=== PATIENT | male | born 1950 | race Caucasian/White ===

== ENCOUNTER 2021-04-15 15:38 | Inpatient (IN) | payer MEDICARE ==
[2021-04-15] MEDS ORDERED: Sodium Chloride 0.9% 10 ML Syringe FLUSH PRN ×2 (16:14→19:10)
--- NOTE | 2021-04-15 16:26 | EDM.PDOC ---
ED HPI GENERAL MEDICAL PROBLEM - General Chief Complaint: Fever Stated Complaint: CHILLS, HOT TO TOUCH, NOT EATING, NOT DRINKING Time Seen by Provider: 04/15/21 16:16 Source of Information: Reports: Patient, Family ( at bedside and supportive) History Limitations: Reports: No Limitations ( good historian. feeling too ill to be verbal (offer) complaints ) - History of Present Illness INITIAL COMMENTS - FREE TEXT/NARRATIVE: Stone is a 70 year old male whom presents to ER with family, for evaluation of generalized weakness, right knee pain and fever. Stone reported fever started on Friday but did not tell family until today. [place] and he had a full day yesterday but after fishing in the evening he had chills, significant worsening of right knee pain (h/o surgery with known repeat repair pending), headache and general malaise last night. Stone normal doctors with [facility] and takes Tylenol or Tramadol for pain, last dose Tylenol 1,000mg 8-9am today with no Tramadol. Stone had no appetite last night or today. Stone had generalized weakness and severe right knee pain this am that he was unable to get down the flight of stairs from the bedroom. Stone has significant medical history of right knee pain pending surgery but delayed due to PE and right groin clot current t reatment with Xarelto, repeat scans noting improvement of PE and groin clot. Stone was todl he a kidney stones, unsure location but reported intermittent severe right groin pain x 2 over the last few weeks. Stone answers questions but not interested in conversation of giving details, is very helpful. Stone notes voice is hoarse, headache slight left sided neck pain, severe right knee pain and intermittent groin pain. Sepsis orders placed, called pharmacy for antibiotic sepsis protocol. Rocephin 2Gm IV ordered once blood and urine obtained with consideration of LP within 2 hrs of initialing IV antibiotics. Ct Head ordered due to headache, neck pain on blood thinner and possible LP needed. Previous abdominal surgeries: Appendix and hernia repair Right Knee Pain Score (Numeric/FACES): 7 - Related Data Allergies Allergy/AdvReac Type Severity Reaction Status Date / Time No Known Allergies Allergy Verified 04/15/21 15:44 Home Meds: Home Meds Omeprazole 20 mg PO DAILY 04/15/21 [History] Propranolol HCl 20 mg PO BID PRN 04/15/21 [History] traMADol [Ultram] 50 mg PO BID PRN 04/15/21 [History] Social & Family History - Tobacco Use Tobacco Use Status *Q: Never Tobacco User - Caffeine Use Caffeine Use: Reports: None - Recreational Drug Use Recreational Drug Use: No ED ROS GENERAL - Review of Systems Review Of Systems: Unable To Obtain Reason Not Obtained: Limited due to acute illness ED EXAM, GENERAL - Physical Exam Exam: See Below Exam Limited By: No Limitations General Appearance: Alert, WD/WN, Lethargic, Severe Distress (right knee and general malaise) Eye Exam: Bilateral Eye: EOMI, Normal Inspection Ears: Hearing Grossly Normal Nose: Normal Inspection Throat/Mouth: Normal Inspection, No Airway Compromise, Other (soft spoken) Head: Atraumatic, Normocephalic Neck: Tender Lateral (left to palpation with slight pain with movement ) Respiratory/Chest: No Respiratory Distress, Lungs Clear, Normal Breath Sounds Cardiovascular: Normal Peripheral Pulses, Regular Rate, Rhythm GI/Abdominal: Normal Bowel Sounds, Soft, Non-Tender Back Exam: No: CVA Tenderness (R), CVA Tenderness (L) Extremities: Joint Swelling (Right knee with increased pain over lateral joint space and joint line) Neurological: Alert, Oriented, Inattentive Psychiatric: Flat Affect Skin Exam: Warm, Dry, Intact, Normal Color (very black ), Rash (petiechial rash right anterior kirby. ) ED GENERAL MEDICAL PROCEDURES - Additional/Other Procedure(s) Other (Free Text) Procedure(s): Right Knee joint aspiration completed by myself. Verbal consent obtained by patient and at bedside. Indication: Fever, joint effusion and pain. Medical Joint space localized and marked. Area was prepped with betadine and local anesthetic with Lidocaine 5 cc injected in the skin area and down to joint space with small amount of fluid aspirated to ensure confirmation. Using sterile technique 18G needle with 10cc syringe was used to aspirate right knee with good return of dark straw color fluid total 32cc. Sample was sent to culture, crystals and cell counts. Betadine was cleaned off procedure site and bandage was applied. #1 Interpretation EKG Date: 04/15/21 Time: 16:41 Rhythm: NSR Rate (Beats/Min): 116 Ross: Normal P-Wave: Present QRS: Normal ST-T: Normal (Slight depression in lateral leads V4-6) QT: Normal Comparison: NA - No Prior EKG Course - Vital Signs Last Recorded V/S: Last Vital Signs Temp 38.2 C H 04/15/21 17:11 Pulse 108 H 04/15/21 17:35 Resp 23 H 04/15/21 17:35 BP 128/87 04/15/21 17:35 Pulse Ox 96 04/15/21 17:35 - Orders/Labs/Meds Orders: Active Orders 24 hr Category Date Time Status Cardiac Monitoring [RC] .As Directed Care 04/15/21 16:15 Active EKG Documentation Completion [RC] ASDIRECTED Care 04/15/21 16:15 Active Peripheral IV Care [RC] . DIRECTED Care 04/15/21 16:15 Active Vital Signs [RC] Q1H Care 04/15/21 16:12 Active CELL COUNT,BODY FLUID [BF] Stat Lab 04/15/21 17:27 Ordered CRYSTAL, SYNOVIAL/JOINT FL Stat Lab 04/15/21 17:19 Ordered CULTURE BLOOD [BC] Urgent Lab 04/15/21 16:40 Received CULTURE BLOOD [BC] Urgent Lab 04/15/21 16:48 Received CULTURE BODY FLUID + SMEAR [RM] Stat Lab 04/15/21 17:27 Ordered UA W/MICROSCOPIC [URIN] Urgent Lab 04/15/21 16:12 Ordered Sodium Chloride 0.9% [Normal Saline] 1,750 ml Med 04/15/21 16:15 Active IV .Bolus Sodium Chloride 0.9% [Saline Flush] Med 04/15/21 16:14 Active 10 ml FLUSH ASDIRECTED PRN Blood Culture x2 Reflex Set [OM.PC] Urgent Oth 04/15/21 16:12 Ordered Peripheral IV Insertion Adult [OM.PC] Urgent Oth 04/15/21 16:15 Ordered EKG 12 Lead [EK] Urgent Ther 04/15/21 16:14 Ordered Medication Orders Sodium Chloride (Normal Saline) 1,750 mls @ 1,000 mls/hr IV .Bolus ELISSA Last Admin: 04/15/21 16:51 Dose: 1,000 mls/hr Documented by: JEFFERY Sodium Chloride (Sodium Chloride 0.9% 10 Ml Syringe) 10 ml FLUSH ASDIRECTED PRN PRN Reason: Keep Vein Open Last Admin: 04/15/21 16:53 Dose: 10 ml Documented by: JEFFERY Labs: Laboratory Tests 04/15/21 04/15/21 04/15/21 Range/Units 16:48 16:48 16:48 WBC 13.2 H (4.5-11.0) K/uL RBC 4.85 (4.30-5.90) M/uL Hgb 14.2 (12.0-15.0) g/dL Hct 40.5 (40.0-54.0) % MCV 84 (80-98) fL MCH 29 (27-31) pg MCHC 35 (32-36) % Plt Count 200 (150-400) K/uL Neut % (Auto) 85.3 H (36-66) % Lymph % (Auto) 4.8 L (24-44) % [place] % (Auto) 9.7 H (2-6) % Eos % (Auto) 0.0 L (2-4) % Baso % (Auto) 0.2 (0-1) % D-Dimer, Quantitative (0.0-500.0) ng/mL Sodium 135 L (140-148) mmol/L Potassium 3.8 (3.6-5.2) mmol/L Chloride 98 L (100-108) mmol/L Carbon Dioxide 21 (21-32) mmol/L Anion Gap 19.8 H (5.0-14.0) mmol/L BUN 15 (7-18) mg/dL Creatinine 1.1 (0.8-1.3) mg/dL Est Cr Clr Drug Dosing 68.45 mL/min Estimated GFR (MDRD) > 60 (>60) Glucose 169 H (74-106) mg/dL Lactic Acid 1.5 (0.4-2.0) mmol/L Calcium 8.7 (8.5-10.1) mg/dL Total Bilirubin 1.1 H (0.2-1.0) mg/dL AST 15 (15-37) U/L ALT 15 (12-78) U/L Alkaline Phosphatase 66 (46-116) U/L Troponin I (0.000-0.056) ng/mL C-Reactive Protein 12.16 H (0.0-0.3) mg/dL Total Protein 7.2 (6.4-8.2) g/dL Albumin 3.7 (3.4-5.0) g/dL Globulin 3.5 (2.3-3.5) g/dL Albumin/Globulin Ratio 1.1 L (1.2-2.2) Lipase (73-393) U/L Procalcitonin ng/mL 04/15/21 04/15/21 04/15/21 Range/Units 16:48 16:48 16:48 WBC (4.5-11.0) K/uL RBC (4.30-5.90) M/uL Hgb (12.0-15.0) g/dL Hct (40.0-54.0) % MCV (80-98) fL MCH (27-31) pg MCHC (32-36) % Plt Count (150-400) K/uL Neut % (Auto) (36-66) % Lymph % (Auto) (24-44) % [place] % (Auto) (2-6) % Eos % (Auto) (2-4) % Baso % (Auto) (0-1) % D-Dimer, Quantitative 1456.20 H (0.0-500.0) ng/mL Sodium (140-148) mmol/L Potassium (3.6-5.2) mmol/L Chloride (100-108) mmol/L Carbon Dioxide (21-32) mmol/L Anion Gap (5.0-14.0) mmol/L BUN (7-18) mg/dL Creatinine (0.8-1.3) mg/dL Est Cr Clr Drug Dosing mL/min Estimated GFR (MDRD) (>60) Glucose (74-106) mg/dL Lactic Acid (0.4-2.0) mmol/L Calcium (8.5-10.1) mg/dL Total Bilirubin (0.2-1.0) mg/dL AST (15-37) U/L ALT (12-78) U/L Alkaline Phosphatase (46-116) U/L Troponin I < 0.017 (0.000-0.056) ng/mL C-Reactive Protein (0.0-0.3) mg/dL Total Protein (6.4-8.2) g/dL Albumin (3.4-5.0) g/dL Globulin (2.3-3.5) g/dL Albumin/Globulin Ratio (1.2-2.2) Lipase 89 (73-393) U/L Procalcitonin 1.24 ng/mL Meds: Medications Generic Name Dose Route Start Last Admin Trade Name Freq PRN Reason Stop Dose Admin Sodium Chloride 1,750 mls @ 1,000 mls/hr 04/15/21 16:15 04/15/21 16:51 Normal Saline IV 1,000 mls/hr .Bolus ELISSA Administration Sodium Chloride 10 ml 04/15/21 16:14 04/15/21 16:53 Sodium Chloride 0.9% 10 Ml Syringe FLUSH 10 ml ASDIRECTED PRN Administration Keep Vein Open Discontinued Medications Generic Name Dose Route Start Last Admin Trade Name Freq PRN Reason Stop Dose Admin Fentanyl 50 mcg 04/15/21 16:33 04/15/21 16:51 Fentanyl 100 Mcg/2 Ml Sdv IVPUSH 04/15/21 16:34 50 mcg ONETIME ONE Administration Ceftriaxone Sodium 2 gm/ 50 mls @ 100 mls/hr 04/15/21 16:40 04/15/21 17:08 Sodium Chloride IV 04/15/21 17:09 100 mls/hr ONETIME ONE Administration Lidocaine HCl 5 ml 04/15/21 17:27 04/15/21 17:36 Lidocaine 1% 5 Ml Sdv INJECT 04/15/21 17:28 5 ml ONETIME ONE Administration - Radiology Interpretation Free Text/Narrative:: No significant acute intracranial findings noted to explain symptoms. Radiology report noting Diffuse volume loss. Changes of chronic small vessel ischemia. CT Results Date: 04/15/21 - Re-Assessments/Exams Free Text/Narrative Re-Assessment/Exam: 04/15/21 16:38 Called Pharmacy about sepsis antibiotic treatment protocol, no answer available (left a message). Rocephin 2GM ordered at this time due to rash right leg, headache and fever. 04/15/21 17:28 Contacted Hospitalist whom requested Joint aspiration before IV antibiotics initiated. 04/15/21 17:43: Joint aspiration completed with synovial fluid sample sent for Crystals, cells (RBC/WBC) and culture. Hospitalist is available to evaluate patient. Departure - Departure Time of Disposition: 18:06 Disposition: DC/Tfer to Hospice - Home 52 Clinical Impression: Sepsis, Fever, Headache, Rash and nonspecific skin eruption, Anticoagulant long-term use, Pulmonary embolism, DVT (deep venous thrombosis), Knee effusion, right - Discharge Information Referrals: PCP,None [Primary Care Provider] - Forms: ED Department Discharge Sepsis Event Note (ED) - Evaluation Sepsis Screening Result: Possible Sepsis Risk - Focused Exam Vital Signs: Vital Signs Temp Pulse Resp BP Pulse Ox 04/15/21 17:35 108 H 23 H 128/87 96 04/15/21 17:11 38.2 C H 22 H 136/87 95 04/15/21 16:51 114 H 22 H 148/103 H 94 L 04/15/21 15:44 37.9 C 119 H 18 165/112 H 95 04/15/21 15:40 37.9 C 119 H 18 165/112 H 95 - My Orders Last 24 Hours: My Active Orders 04/15/21 16:12 Vital Signs [RC] Q1H UA W/MICROSCOPIC [URIN] Urgent Blood Culture x2 Reflex Set [OM.PC] Urgent 04/15/21 16:14 Sodium Chloride 0.9% [Saline Flush] 10 ml FLUSH ASDIRECTED PRN EKG 12 Lead [EK] Urgent 04/15/21 16:15 Cardiac Monitoring [RC] .As Directed EKG Documentation Completion [RC] ASDIRECTED Peripheral IV Care [RC] . DIRECTED Sodium Chloride 0.9% [Normal Saline] 1,750 ml IV .Bolus Peripheral IV Insertion Adult [OM.PC] Urgent 04/15/21 16:40 CULTURE BLOOD [BC] Urgent 04/15/21 16:48 CULTURE BLOOD [BC] Urgent 04/15/21 17:19 CRYSTAL, SYNOVIAL/JOINT FL Stat 04/15/21 17:27 CELL COUNT,BODY FLUID [BF] Stat CULTURE BODY FLUID + SMEAR [RM] Stat - Assessment/Plan Last 24 Hours: My Active Orders 04/15/21 16:12 Vital Signs [RC] Q1H UA W/MICROSCOPIC [URIN] Urgent Blood Culture x2 Reflex Set [OM.PC] Urgent 04/15/21 16:14 Sodium Chloride 0.9% [Saline Flush] 10 ml FLUSH ASDIRECTED PRN EKG 12 Lead [EK] Urgent 04/15/21 16:15 Cardiac Monitoring [RC] .As Directed EKG Documentation Completion [RC] ASDIRECTED Peripheral IV Care [RC] . DIRECTED Sodium Chloride 0.9% [Normal Saline] 1,750 ml IV .Bolus Peripheral IV Insertion Adult [OM.PC] Urgent 04/15/21 16:40 CULTURE BLOOD [BC] Urgent 04/15/21 16:48 CULTURE BLOOD [BC] Urgent 04/15/21 17:19 CRYSTAL, SYNOVIAL/JOINT FL Stat 04/15/21 17:27 CELL COUNT,BODY FLUID [BF] Stat CULTURE BODY FLUID + SMEAR [RM] Stat
[2021-04-15] MEDS ORDERED: fentaNYL 100 MCG/2 ML SDV IVPUSH ONE ×2 (16:33→18:28)
[2021-04-15] MEDS ORDERED: cefTRIAXone 2 GM in Sodium Chloride 0.9% 50 ML IV ONE (16:40)
--- NOTE | 2021-04-15 17:56 | CRLCT ---
For Patients: As a result of the Century Cures Act, medical imaging exams and procedure reports are released immediately into your electronic medical record. You may view this report before your referring provider. If you have questions, please contact your health care provider. Indication: Headache. Weakness. Fever. Technique: Multiple contiguous axial images were obtained from the skullbase to the vertex without intravenous contrast enhancement. Please note that all CT scans at this facility use dose modulation, iterative reconstruction, and/or weight-based dosing when appropriate to reduce radiation dose to as low as reasonably achievable. Comparison: None Findings: The ventricles are enlarged consistent with the size of the sulci. The basal cisterns are widely patent. No intra-axial or extra-axial hemorrhage is identified. No mass, mass effect, or midline shift is seen. Confluent areas of low-attenuation are identified in the periventricular white matter. The bony calvarium is intact. The visualized paranasal sinuses and mastoid air cells are clear. Impression: Diffuse volume loss. Changes of chronic small vessel ischemia. Please note that all CT scans at this facility use dose modulation, iterative reconstruction, and/or weight-based dosing when appropriate to reduce radiation dose to as low as reasonably achievable. Dictated by Magui Penaloza MD @ 04/15/2021 5:55:[address] Magui Penaloza @ Apr 15 2021 5:55PM
[2021-04-15] MEDS ORDERED: Acetaminophen 325 MG Tab PO ONE ×2 (18:28→18:29)
[2021-04-15] MEDS ORDERED: Metoclopramide 10 MG/2 ML SDV IV ONE (18:30)
--- NOTE | 2021-04-15 18:46 | PCM.HP.2 ---
H&P History of Present Illness - General Date of Service: 04/15/21 Admit Problem/Dx: Admission Diagnosis/Problem Admission Diagnosis/Problem Septic arthritis Source of Information: Patient, Family, Provider, RN Notes Reviewed History Limitations: Reports: No Limitations - History of Present Illness Initial Comments - Free Text/Narative: Mr. 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 He is status post total right knee arthroplasty done approximately 2 years ago. Over the past 2 days is noted increased warmth over the knee with swelling and pain, as well as fever and chills. He presented to the emergency department today for further evaluation. CRP is significantly elevated and white blood cell count is mildly to moderately elevated. He was noted to be tachycardic consistent with some early sepsis. The joint has been aspirated in the emergency department, Gram stain and culture are pending at this time as well as white blood cell count. There is no other obvious source of infection identified on evaluation. Right Knee Pain Score (Numeric/FACES): 7 - Related Data Allergies/Adverse Reactions: Allergies Allergy/AdvReac Type Severity Reaction Status Date / Time No Known Allergies Allergy Verified 04/15/21 15:44 Home Medications: Home Meds Omeprazole 20 mg PO DAILY 04/15/21 [History] Propranolol HCl 20 mg PO BID PRN 04/15/21 [History] Rivaroxaban [Xarelto] 20 mg PO DAILY 04/15/21 [History] traMADol [Ultram] 50 mg PO BID PRN 04/15/21 [History] Social & Family History - Tobacco Use Tobacco Use Status *Q: Never Tobacco User - Caffeine Use Caffeine Use: Reports: None - Recreational Drug Use Recreational Drug Use: No H&P Review of Systems - Review of Systems: Review Of Systems: See Below General: Reports: Fever, Chills, Weakness, Fatigue HEENT: Reports: No Symptoms Pulmonary: Reports: No Symptoms Cardiovascular: Reports: No Symptoms Gastrointestinal: Reports: No Symptoms Genitourinary: Reports: No Symptoms Musculoskeletal: Reports: Joint Pain (Right knee) Skin: Reports: No Symptoms Psychiatric: Reports: No Symptoms Neurological: Reports: No Symptoms Hematologic/Lymphatic: Reports: No Symptoms Immunologic: Reports: No Symptoms Exam - Exam Exam: See Below - Vital Signs Vital Signs: Last Vital Signs Temp 99.3 F 04/15/21 18:37 Pulse 104 H 04/15/21 18:24 Resp 28 H 04/15/21 18:24 BP 140/82 04/15/21 18:24 Pulse Ox 96 04/15/21 17:35 Weight: 193 lb - Exam Quality Assessment: DVT Prophylaxis General: Alert, Oriented, Cooperative, Moderate Distress HEENT: Conjunctiva Clear, Hearing Intact, Mucosa Moist & [place], Normal Nasal Septum, Posterior Pharynx Clear, Pupils Equal Neck: Supple, Trachea Midline, +2 Carotid Pulse wo Bruit Lungs: Clear to Auscultation, Normal Respiratory Effort Cardiovascular: Regular Rate, Regular Rhythm, Normal S1, Normal S2. No: Systolic Murmur, Diastolic Murmur GI/Abdominal Exam: Soft, Non-Tender, No Organomegaly, No Distention Back Exam: Normal Inspection, Full Range of Motion Extremities: Joint Swelling (And pain right knee), Redness Skin: Warm, Dry, Intact Neurological: Cranial Nerves Intact, Strength Equal Bilateral, Normal Speech, Normal Tone, Sensation Intact. No: Focal Deficit Neuro Extensive - Mental Status: Alert, Oriented x3, Normal Mood/Affect, Normal Cognition, Memory Intact - Patient Data Lab Results Last 24 hrs: Laboratory Results - last 24 hr 04/15/21 04/15/21 04/15/21 Range/Units 16:48 16:48 16:48 WBC 13.2 H (4.5-11.0) K/uL RBC 4.85 (4.30-5.90) M/uL Hgb 14.2 (12.0-15.0) g/dL Hct 40.5 (40.0-54.0) % MCV 84 (80-98) fL MCH 29 (27-31) pg MCHC 35 (32-36) % Plt Count 200 (150-400) K/uL Neut % (Auto) 85.3 H (36-66) % Lymph % (Auto) 4.8 L (24-44) % [place] % (Auto) 9.7 H (2-6) % Eos % (Auto) 0.0 L (2-4) % Baso % (Auto) 0.2 (0-1) % D-Dimer, Quantitative (0.0-500.0) ng/mL Sodium 135 L (140-148) mmol/L Potassium 3.8 (3.6-5.2) mmol/L Chloride 98 L (100-108) mmol/L Carbon Dioxide 21 (21-32) mmol/L Anion Gap 19.8 H (5.0-14.0) mmol/L BUN 15 (7-18) mg/dL Creatinine 1.1 (0.8-1.3) mg/dL Est Cr Clr Drug Dosing 68.45 mL/min Estimated GFR (MDRD) > 60 (>60) Glucose 169 H (74-106) mg/dL Lactic Acid 1.5 (0.4-2.0) mmol/L Calcium 8.7 (8.5-10.1) mg/dL Total Bilirubin 1.1 H (0.2-1.0) mg/dL AST 15 (15-37) U/L ALT 15 (12-78) U/L Alkaline Phosphatase 66 (46-116) U/L Troponin I (0.000-0.056) ng/mL C-Reactive Protein 12.16 H (0.0-0.3) mg/dL Total Protein 7.2 (6.4-8.2) g/dL Albumin 3.7 (3.4-5.0) g/dL Globulin 3.5 (2.3-3.5) g/dL Albumin/Globulin Ratio 1.1 L (1.2-2.2) Lipase (73-393) U/L Procalcitonin ng/mL 04/15/21 04/15/21 04/15/21 Range/Units 16:48 16:48 16:48 WBC (4.5-11.0) K/uL RBC (4.30-5.90) M/uL Hgb (12.0-15.0) g/dL Hct (40.0-54.0) % MCV (80-98) fL MCH (27-31) pg MCHC (32-36) % Plt Count (150-400) K/uL Neut % (Auto) (36-66) % Lymph % (Auto) (24-44) % [place] % (Auto) (2-6) % Eos % (Auto) (2-4) % Baso % (Auto) (0-1) % D-Dimer, Quantitative 1456.20 H (0.0-500.0) ng/mL Sodium (140-148) mmol/L Potassium (3.6-5.2) mmol/L Chloride (100-108) mmol/L Carbon Dioxide (21-32) mmol/L Anion Gap (5.0-14.0) mmol/L BUN (7-18) mg/dL Creatinine (0.8-1.3) mg/dL Est Cr Clr Drug Dosing mL/min Estimated GFR (MDRD) (>60) Glucose (74-106) mg/dL Lactic Acid (0.4-2.0) mmol/L Calcium (8.5-10.1) mg/dL Total Bilirubin (0.2-1.0) mg/dL AST (15-37) U/L ALT (12-78) U/L Alkaline Phosphatase (46-116) U/L Troponin I < 0.017 (0.000-0.056) ng/mL C-Reactive Protein (0.0-0.3) mg/dL Total Protein (6.4-8.2) g/dL Albumin (3.4-5.0) g/dL Globulin (2.3-3.5) g/dL Albumin/Globulin Ratio (1.2-2.2) Lipase 89 (73-393) U/L Procalcitonin 1.24 ng/mL Result Diagrams: 04/15/21 16:48 04/15/21 16:48 Sepsis Event Note - Evaluation Sepsis Screening Result: Possible Sepsis Risk - Focused Exam Vital Signs: Vital Signs Temp Temp Pulse Resp BP Pulse Ox 04/15/21 18:37 99.3 F 04/15/21 18:24 104 H 28 H 140/82 04/15/21 17:35 108 H 23 H 128/87 96 04/15/21 17:11 100.8 F H 22 H 136/87 95 04/15/21 16:51 114 H 22 H 148/103 H 94 L 04/15/21 15:44 100.3 F 119 H 18 165/112 H 95 04/15/21 15:40 100.3 F 119 H 18 165/112 H 95 *Q Meaningful Use (ADM) - VTE *Q VTE Pharmacological Contraindications *Q: High INR Value - VTE Risk Assess *Q Each Risk Factor Represents 1 Point: Obesity ( BMI > 25 kg/m2), Sepsis Total Score 1 Point Risk Factors: 2 Each Risk Factor Represents 2 Points: Age 60 - 74 Years Total Score 2 Point Risk Factors: 2 Each Risk Factor Represents 3 Points: None Total Score 3 Point Risk Factors: 0 Each Risk Factor Represents 5 Points: None Total Score 5 Point Risk Factors: 0 Venous Thromboembolism Risk Factor Score *Q: 4 Problem List Initiated/Reviewed/Updated: Yes Orders Last 24hrs: Active Orders 24 hr Category Date Time Status Patient Status Manage Transfer [TRANSFER] Routine ADT 04/15/21 18:36 Ordered Cardiac Monitoring [RC] .As Directed Care 04/15/21 16:15 Active EKG Documentation Completion [RC] ASDIRECTED Care 04/15/21 16:15 Active Peripheral IV Care [RC] . DIRECTED Care 04/15/21 16:15 Active Vital Signs [RC] Q1H Care 04/15/21 16:12 Active CELL COUNT,BODY FLUID [BF] Stat Lab 04/15/21 18:42 Ordered CRYSTAL, SYNOVIAL/JOINT FL Stat Lab 04/15/21 17:19 Ordered CULTURE BLOOD [BC] Urgent Lab 04/15/21 16:40 Received CULTURE BLOOD [BC] Urgent Lab 04/15/21 16:48 Received CULTURE BODY FLUID + SMEAR [RM] Stat Lab 04/15/21 18:42 Ordered UA W/MICROSCOPIC [URIN] Urgent Lab 04/15/21 16:12 Ordered Sodium Chloride 0.9% [Normal Saline] 1,750 ml Med 04/15/21 16:15 Active IV .Bolus Sodium Chloride 0.9% [Saline Flush] Med 04/15/21 16:14 Active 10 ml FLUSH ASDIRECTED PRN Blood Culture x2 Reflex Set [OM.PC] Urgent Oth 04/15/21 16:12 Ordered Peripheral IV Insertion Adult [OM.PC] Urgent Oth 04/15/21 16:15 Ordered Resuscitation Status Routine Resus Stat 04/15/21 18:40 Ordered EKG 12 Lead [EK] Urgent Ther 04/15/21 16:14 Ordered Medication Orders Sodium Chloride (Normal Saline) 1,750 mls @ 1,000 mls/hr IV .Bolus ELISSA Last Admin: 04/15/21 16:51 Dose: 1,000 mls/hr Documented by: JEFFERY Sodium Chloride (Sodium Chloride 0.9% 10 Ml Syringe) 10 ml FLUSH ASDIRECTED PRN PRN Reason: Keep Vein Open Last Admin: 04/15/21 16:53 Dose: 10 ml Documented by: JEFFERY Assessment/Plan Comment:: ASSESSMENT AND PLAN SEPTIC ARTHRITIS RIGHT KNEE-status post total knee arthroplasty done 2 years ago. Increased pain, swelling, erythema, fever and chills over the past 2 days. CRP is 12 and white blood cell count is mildly to moderately elevated. He is tachycardic on initial presentation consistent with early sepsis. He has received vigorous IV fluid replacement. Joint has been aspirated cell counts and Gram stain are pending. He has been started on IV antibiotic therapy while in the emergency department. -Blood and joint cultures pending -Continue IV fluids -Consult Dr. Castro for orthopedic opinion in a.m. -N.p.o. after midnight -IV vancomycin and ceftriaxone, pending culture results RECENT DVT-complicating back surgery done earlier this spring. On long-term oral anticoagulation with Xarelto. -Hold Xarelto pending evaluation by Dr. Castro MAINTENANCE ISSUES -DVT prophylaxis; current therapy with Xarelto should provide adequate DVT prophylaxis, reassess in a.m. -GI prophylaxis; not indicated -Luther catheter; not indicated -Nutrition; regular diet, n.p.o. after midnight -Nicotine dependence; not required CODE STATUS-FULL CODE ADMISSION STATUS-patient will be admitted to inpatient status, expect at least a 2 night hospital stay for evaluation and management of problems as outlined above. At the time of this admission I do not reasonably expected evaluation and management of this problem will require more than a 96 hour hospital stay. DISPOSITION-anticipate discharge to home after the hospital stay. PRIMARY CARE PROVIDER-patient is visiting this area and receives his health care in his local community - Mortality Measure Prognosis:: Good
[2021-04-15] MEDS ORDERED: Propranolol 40 MG Tab PO PRN (19:10)
[2021-04-15] MEDS ORDERED: Vancomycin 1 GM SDV IV SCH (19:10)
[2021-04-15] MEDS ORDERED: Ondansetron 4 MG/2 ML SDV IV PRN (19:10)
[2021-04-15] MEDS ORDERED: Polyethylene Glycol 3350 Powder 17 GM Packet PO PRN (19:10)
[2021-04-15] MEDS: oxyCODONE 5 MG Tab PO PRN ×2 (19:50→23:57)
[2021-04-15] MEDS: Sodium Chloride 0.9% 1,000 ML IV SCH (20:28)
[2021-04-15] MEDS: Acetaminophen 325 MG Tab PO PRN (23:56)
[2021-04-16] MEDS: Acetaminophen 325 MG Tab PO PRN ×5 (04:03→22:54)
[2021-04-16] MEDS: oxyCODONE 5 MG Tab PO PRN ×5 (04:03→22:55)
[2021-04-16] MEDS: Sodium Chloride 0.9% 1,000 ML IV SCH ×2 (08:32→16:26)
[2021-04-16] MEDS ORDERED: Pantoprazole 40 MG Tab.CR PO SCH (09:00)
[2021-04-16] MEDS: Pantoprazole 40 MG Tab.CR PO SCH (10:22)
[2021-04-16] MEDS: cefTRIAXone 2 GM in Sodium Chloride 0.9% 50 ML IV SCH (16:27)
[2021-04-16] MEDS ORDERED: cefTRIAXone 2 GM in Sodium Chloride 0.9% 50 ML IV SCH (17:00)
--- NOTE | 2021-04-16 17:27 | PCM.CONSN ---
- General Info Date of Service: 04/16/21 Admission Dx/Problem (Free Text): Admission Diagnosis/Problem Admission Diagnosis/Problem Septic arthritis Functional Status: Reports: Tolerating Diet - Review of Systems General: Reports: Fever Genitourinary: Reports: No Symptoms Musculoskeletal: Reports: Leg Pain (right ), Joint Pain (right knee ), Joint Swelling (right knee ) Skin: Reports: Rash (R calf ) Neurological: Reports: No Symptoms Psychiatric: Reports: No Symptoms - Patient Data Vitals - Most Recent: Last Vital Signs Temp 100.7 F H 04/16/21 14:29 Pulse 119 H 04/16/21 14:29 Resp 18 04/16/21 14:29 BP 129/90 04/16/21 14:29 Pulse Ox 96 04/16/21 14:29 Weight - Most Recent: 185 lb I&O - Last 24 Hours: Intake & Output 04/16/21 04/16/21 04/16/21 06:59 14:59 22:59 Intake Total 1601 Output Total 350 450 Balance 1251 -450 Lab Results Last 24 Hours: Laboratory Results - last 24 hr 04/15/21 04/15/21 04/15/21 Range/Units 16:48 16:48 16:48 WBC (4.5-11.0) K/uL RBC (4.30-5.90) M/uL Hgb (12.0-15.0) g/dL Hct (40.0-54.0) % MCV (80-98) fL MCH (27-31) pg MCHC (32-36) % Plt Count (150-400) K/uL Neut % (Auto) (36-66) % Lymph % (Auto) (24-44) % [place] % (Auto) (2-6) % Eos % (Auto) (2-4) % Baso % (Auto) (0-1) % D-Dimer, Quantitative 1456.20 H (0.0-500.0) ng/mL Sodium (140-148) mmol/L Potassium (3.6-5.2) mmol/L Chloride (100-108) mmol/L Carbon Dioxide (21-32) mmol/L Anion Gap (5.0-14.0) mmol/L BUN (7-18) mg/dL Creatinine (0.8-1.3) mg/dL Est Cr Clr Drug Dosing mL/min Estimated GFR (MDRD) (>60) Glucose (74-106) mg/dL Lactic Acid 1.5 (0.4-2.0) mmol/L Calcium (8.5-10.1) mg/dL Troponin I < 0.017 (0.000-0.056) ng/mL Lipase 89 (73-393) U/L Procalcitonin ng/mL Urine Color (YELLOW) Urine Appearance (CLEAR) Urine pH (5.0-8.0) Ur Specific [place] (1.008-1.030) Urine Protein (NEGATIVE) mg/dL Urine Glucose (UA) (NEGATIVE) mg/dL Urine Ketones (NEGATIVE) mg/dL Urine Occult Blood (NEGATIVE) Urine Nitrite (NEGATIVE) Urine Bilirubin (NEGATIVE) Urine Urobilinogen (0.2-1.0) EU/dL Ur Leukocyte Esterase (NEGATIVE) Urine RBC (0-5) Urine WBC (0-5) Ur Epithelial Cells Amorphous Sediment Urine Bacteria Urine Mucus Fluid Type Fluid WBC /ul Fluid RBC /ul Fluid Diff Comment Fluid Mononuclear Cell % Fl Polymorphonucl Cell % 04/15/21 04/15/21 04/15/21 Range/Units 16:48 18:42 21:03 WBC (4.5-11.0) K/uL RBC (4.30-5.90) M/uL Hgb (12.0-15.0) g/dL Hct (40.0-54.0) % MCV (80-98) fL MCH (27-31) pg MCHC (32-36) % Plt Count (150-400) K/uL Neut % (Auto) (36-66) % Lymph % (Auto) (24-44) % [place] % (Auto) (2-6) % Eos % (Auto) (2-4) % Baso % (Auto) (0-1) % D-Dimer, Quantitative (0.0-500.0) ng/mL Sodium (140-148) mmol/L Potassium (3.6-5.2) mmol/L Chloride (100-108) mmol/L Carbon Dioxide (21-32) mmol/L Anion Gap (5.0-14.0) mmol/L BUN (7-18) mg/dL Creatinine (0.8-1.3) mg/dL Est Cr Clr Drug Dosing mL/min Estimated GFR (MDRD) (>60) Glucose (74-106) mg/dL Lactic Acid (0.4-2.0) mmol/L Calcium (8.5-10.1) mg/dL Troponin I (0.000-0.056) ng/mL Lipase (73-393) U/L Procalcitonin 1.24 ng/mL Urine Color Yellow (YELLOW) Urine Appearance Clear (CLEAR) Urine pH 6.0 (5.0-8.0) Ur Specific [place] >= 1.030 (1.008-1.030) Urine Protein 100 H (NEGATIVE) mg/dL Urine Glucose (UA) Negative (NEGATIVE) mg/dL Urine Ketones 80 H (NEGATIVE) mg/dL Urine Occult Blood Large H (NEGATIVE) Urine Nitrite Negative (NEGATIVE) Urine Bilirubin Small H (NEGATIVE) Urine Urobilinogen 4.0 H (0.2-1.0) EU/dL Ur Leukocyte Esterase Negative (NEGATIVE) Urine RBC Semi-packed H (0-5) Urine WBC 0-5 (0-5) Ur Epithelial Cells Rare Amorphous Sediment Occasional Urine Bacteria Occasional Urine Mucus Occasional Fluid Type Synovial fluid Fluid WBC 6897 /ul Fluid RBC 4905 /ul Fluid Diff Comment Synovial fluid Fluid Mononuclear Cell 28 % Fl Polymorphonucl Cell 72 % 04/16/21 04/16/21 Range/Units 04:30 04:30 WBC 13.3 H (4.5-11.0) K/uL RBC 4.59 (4.30-5.90) M/uL Hgb 13.4 (12.0-15.0) g/dL Hct 39.3 L (40.0-54.0) % MCV 86 (80-98) fL MCH 29 (27-31) pg MCHC 34 (32-36) % Plt Count 174 (150-400) K/uL Neut % (Auto) 74.0 H (36-66) % Lymph % (Auto) 11.1 L (24-44) % [place] % (Auto) 14.6 H (2-6) % Eos % (Auto) 0.1 L (2-4) % Baso % (Auto) 0.2 (0-1) % D-Dimer, Quantitative (0.0-500.0) ng/mL Sodium 136 L (140-148) mmol/L Potassium 3.7 (3.6-5.2) mmol/L Chloride 101 (100-108) mmol/L Carbon Dioxide 22 (21-32) mmol/L Anion Gap 16.7 H (5.0-14.0) mmol/L BUN 11 (7-18) mg/dL Creatinine 0.9 (0.8-1.3) mg/dL Est Cr Clr Drug Dosing 76.00 mL/min Estimated GFR (MDRD) > 60 (>60) Glucose 127 H (74-106) mg/dL Lactic Acid (0.4-2.0) mmol/L Calcium 8.5 (8.5-10.1) mg/dL Troponin I (0.000-0.056) ng/mL Lipase (73-393) U/L Procalcitonin ng/mL Urine Color (YELLOW) Urine Appearance (CLEAR) Urine pH (5.0-8.0) Ur Specific [place] (1.008-1.030) Urine Protein (NEGATIVE) mg/dL Urine Glucose (UA) (NEGATIVE) mg/dL Urine Ketones (NEGATIVE) mg/dL Urine Occult Blood (NEGATIVE) Urine Nitrite (NEGATIVE) Urine Bilirubin (NEGATIVE) Urine Urobilinogen (0.2-1.0) EU/dL Ur Leukocyte Esterase (NEGATIVE) Urine RBC (0-5) Urine WBC (0-5) Ur Epithelial Cells Amorphous Sediment Urine Bacteria Urine Mucus Fluid Type Fluid WBC /ul Fluid RBC /ul Fluid Diff Comment Fluid Mononuclear Cell % Fl Polymorphonucl Cell % Kirk Results Last 24 Hours: Microbiology 04/15/21 16:40 Aerobic Blood Culture - Preliminary Blood - Arm, Right NO GROWTH AFTER 1 DAY Anaerobic Blood Culture - Preliminary NO GROWTH AFTER 1 DAY 04/15/21 16:48 Aerobic Blood Culture - Preliminary Blood - Arm, Right NO GROWTH AFTER 1 DAY Anaerobic Blood Culture - Preliminary NO GROWTH AFTER 1 DAY 04/15/21 18:42 Gram Stain - Final Joint / Synovial Fluid - Knee, Right Body Fluid Culture - Preliminary Aerobic Culture - Final Anaerobic Culture - Final Med Orders - Current: Current Medications Acetaminophen (Acetaminophen 325 Mg Tab) 650 mg PO Q4H PRN PRN Reason: Pain (Mild 1-3)/fever Last Admin: 04/16/21 13:14 Dose: 650 mg Documented by: Sodium Chloride (Normal Saline) 1,000 mls @ 125 mls/hr IV ASDIRECTED ELISSA Last Admin: 04/16/21 16:26 Dose: 125 mls/hr Documented by: Vancomycin HCl 1.25 gm/ Sodium (Chloride) 250 mls @ 166.667 mls/hr IV Q12H [facility] Last Admin: 04/16/21 05:21 Dose: 166.667 mls/hr Documented by: Ceftriaxone Sodium 2 gm/ (Sodium Chloride) 50 mls @ 100 mls/hr IV Q24H [facility] Last Admin: 04/16/21 16:27 Dose: 100 mls/hr Documented by: Ondansetron HCl (Ondansetron 4 Mg/2 Ml Sdv) 4 mg IV Q4H PRN PRN Reason: Nausea/Vomiting Oxycodone HCl (Oxycodone 5 Mg Tab) 5 mg PO Q4H PRN PRN Reason: Pain (moderate 4-6) Oxycodone HCl (Oxycodone 5 Mg Tab) 10 mg PO Q4H PRN PRN Reason: Pain (severe 7-10) Pantoprazole Sodium (Pantoprazole 40 Mg Tab.Cr) 40 mg PO ACBREAKFAST [facility] Last Admin: 04/16/21 10:22 Dose: Not Given Documented by: Polyethylene Glycol (Polyethylene Glycol 3350 Powder 17 Gm Packet) 17 gm PO DAILY PRN PRN Reason: Constipation Propranolol HCl (Propranolol 40 Mg Tab) 20 mg PO BID PRN PRN Reason: Other Sodium Chloride (Sodium Chloride 0.9% 10 Ml Syringe) 10 ml FLUSH ASDIRECTED PRN PRN Reason: Keep Vein Open Discontinued Medications Acetaminophen (Acetaminophen 325 Mg Tab) 325 mg PO NOW ONE Stop: 04/15/21 18:29 Last Admin: 04/15/21 18:37 Dose: 325 mg Documented by: Acetaminophen (Acetaminophen 325 Mg Tab) 325 mg PO NOW ONE Stop: 04/15/21 18:30 Last Admin: 04/15/21 18:49 Dose: 325 mg Documented by: Fentanyl (Fentanyl 100 Mcg/2 Ml Sdv) 50 mcg IVPUSH ONETIME ONE Stop: 04/15/21 16:34 Last Admin: 04/15/21 16:51 Dose: 50 mcg Documented by: Fentanyl (Fentanyl 100 Mcg/2 Ml Sdv) 50 mcg IVPUSH ONETIME ONE Stop: 04/15/21 18:29 Last Admin: 04/15/21 18:44 Dose: 50 mcg Documented by: Sodium Chloride (Normal Saline) 1,750 mls @ 1,000 mls/hr IV .Bolus ELISSA Last Admin: 04/15/21 16:51 Dose: 1,000 mls/hr Documented by: Ceftriaxone Sodium 2 gm/ (Sodium Chloride) 50 mls @ 100 mls/hr IV ONETIME ONE Stop: 04/15/21 17:09 Last Admin: 04/15/21 17:08 Dose: 100 mls/hr Documented by: Ceftriaxone Sodium 2 gm/ (Sodium Chloride) 50 mls @ 100 mls/hr IV Q24H ELISSA Lidocaine HCl (Lidocaine 1% 5 Ml Sdv) 5 ml INJECT ONETIME ONE Stop: 04/15/21 17:28 Last Admin: 04/15/21 17:36 Dose: 5 ml Documented by: Metoclopramide HCl (Metoclopramide 10 Mg/2 Ml Sdv) 5 mg IV ONETIME ONE Stop: 04/15/21 18:31 Last Admin: 04/15/21 18:38 Dose: 5 mg Documented by: Oxycodone HCl (Oxycodone 5 Mg Tab) 5 mg PO Q4H PRN PRN Reason: Pain (moderate 4-6) Last Admin: 04/16/21 13:14 Dose: 5 mg Documented by: Pantoprazole Sodium (Pantoprazole 40 Mg Tab.Cr) 40 mg PO DAILY [facility] Sodium Chloride (Sodium Chloride 0.9% 10 Ml Syringe) 10 ml FLUSH ASDIRECTED PRN PRN Reason: Keep Vein Open Last Admin: 04/15/21 16:53 Dose: 10 ml Documented by: Vancomycin HCl (Vancomycin 1 Gm Sdv) 1 gm IV .PHARMACY TO DOSE [facility] Stop: 04/16/21 07:30 - Exam General: Alert, Oriented, Cooperative, Mild Distress Extremities: Joint Swelling (right knee ), Leg Pain (right ), Limited Range of Motion, Increased Warmth (right knee ), Other (tightness to right knee ) Skin: Warm, Dry, Intact, Rash (right calf) Neurological: No New Focal Deficit Psy/Mental Status: Alert, Normal Affect, Normal Mood Sepsis Event Note - Evaluation Sepsis Screening Result: Sepsis Risk - Focused Exam Vital Signs: Vital Signs Temp Pulse Resp BP Pulse Ox 04/16/21 14:29 100.7 F H 119 H 18 129/90 96 04/16/21 10:17 98.6 F 96 18 138/75 95 04/16/21 07:00 98.7 F 93 18 134/80 96 Consult PN Assessment/Plan (1) Painful total knee replacement, right SNOMED Code(s): 012012465 Code(s): T84.84XA - PAIN DUE TO INTERNAL ORTHOPEDIC PROSTH DEV/GRFT, INIT; Z96.651 - PRESENCE OF RIGHT ARTIFICIAL KNEE JOINT Current Visit: Yes Qualifiers: Encounter type: initial encounter Qualified Code(s): T84.84XA - Pain due to internal orthopedic prosthetic devices, implants and grafts, initial encounter; Z96.651 - Presence of right artificial knee joint Assessment:: Patient is a pleasant 70 y/o male, underwent a right total knee arthroplasty in 2019 in [facility]. Reports he has had pain associated with the knee since the operation in 2019. However, over the weekend developed fevers, chills, generalized weakness, inability to bear weight on knee, significant swelling, increased pain, and warmth to touch of the knee joint. Patient came into the ED and was admitted for infectious workup. Routine labs reveal slightly elevated white count at 13.3. Joint arthrocentesis performed on 04/15/21; fluid RBC at 4,905 and fluid WBC at 6,897. Awaiting final culture results from arthrocentesis. While cultures are pending, patient has been started on IV vancomycin and ceftriaxone. Patient is febrile, otherwise all vitals are within normal limits and patient is currently hemodynamically stable. Xrays were taken this afternoon and reveal lucency around the tibial component and on the posterior aspect of the femoral component, concerning of loosening of the hardware. The patella is tilted laterally as a result of the joint effusion. Plan: * Discussed treatment options with patient and spouse; there are 3 options, pending on what the culture results return with will dictate how aggressive surgical options may be. At this time, Dr. Castro recommends awaiting culture results to see what type of bacteria is in the knee and getting a bone scan to determine if the hardware is in fact loosening as it appears on xray. * If there is minimal evidence of hardware loosening on bone scan and the cultures are a relatively common bacteria, a joint washout could be performed and the plastic liner replaced with an antibiotic spacer. * If the hardware is loosening and the cultures are a relatively common bacteria, could proceed with a single stage revision. * If the hardware is loosening and the culture are a more aggressive bacteria, like MRSA, would likely need a multi-stage revision. * Discussed stabilizing patient and returning closer to home for revision surgery, but patient would like to stay in [place] for surgery. * Bone scan has been ordered to further assess hardware loosening. * Awaiting right knee joint arthrocentesis culture results. * Pain medications adjusted to allow a tapered oxycodone dosage to keep patient comfortable. * Will continue with current IV antibiotic regimen. * Hold patient's home xarelto in anticipation of surgery on Friday or . * Will reach out to [facility] for patients records tomorrow when their clinic is open. * Patient and expressed understanding of the above options; will update them on bone scan results and joint cultures when available. Problem List Initiated/Reviewed/Updated: Yes My Orders Last 24 Hours: My Active Orders 04/16/21 16:16 Knee Min 4V Rt [CR] Routine 04/16/21 17:14 Bone Scan Limited [NM] Routine 04/16/21 17:16 oxyCODONE 5 mg PO Q4H PRN 04/16/21 17:17 oxyCODONE 10 mg PO Q4H PRN
--- NOTE | 2021-04-16 20:26 | PCM.PN ---
- General Info Date of Service: 04/16/21 Admission Dx/Problem (Free Text): Admission Diagnosis/Problem Admission Diagnosis/Problem Septic arthritis Functional Status: Reports: Pain Controlled, Tolerating Diet - Review of Systems General: Reports: Fever, Chills HEENT: Denies: Headaches Pulmonary: Reports: No Symptoms. Denies: Shortness of Breath, Cough Cardiovascular: Reports: No Symptoms. Denies: Chest Pain, Palpitations Gastrointestinal: Reports: No Symptoms. Denies: Abdominal Pain, Nausea, Vomiting Genitourinary: Reports: No Symptoms. Denies: Dysuria, Burning Musculoskeletal: Reports: Joint Pain, Joint Swelling Skin: Reports: Other (Redness of the upper chest) Neurological: Reports: No Symptoms. Denies: Dizziness, Headache Psychiatric: Reports: No Symptoms. Denies: Confusion - Patient Data Vitals - Most Recent: Last Vital Signs Temp 98.8 F 04/16/21 19:00 Pulse 125 H 04/16/21 19:00 Resp 16 04/16/21 19:00 BP 120/61 04/16/21 19:00 Pulse Ox 93 L 04/16/21 19:00 Weight - Most Recent: 185 lb I&O - Last 24 Hours: Intake & Output 04/16/21 04/16/21 04/16/21 06:59 14:59 22:59 Intake Total 1601 1460 Output Total 350 450 Balance 1251 -450 1460 Lab Results Last 24 Hours: Laboratory Results - last 24 hr 04/15/21 04/15/21 04/16/21 Range/Units 18:42 21:03 04:30 WBC 13.3 H (4.5-11.0) K/uL RBC 4.59 (4.30-5.90) M/uL Hgb 13.4 (12.0-15.0) g/dL Hct 39.3 L (40.0-54.0) % MCV 86 (80-98) fL MCH 29 (27-31) pg MCHC 34 (32-36) % Plt Count 174 (150-400) K/uL Neut % (Auto) 74.0 H (36-66) % Lymph % (Auto) 11.1 L (24-44) % Eagle % (Auto) 14.6 H (2-6) % Eos % (Auto) 0.1 L (2-4) % Baso % (Auto) 0.2 (0-1) % Sodium (140-148) mmol/L Potassium (3.6-5.2) mmol/L Chloride (100-108) mmol/L Carbon Dioxide (21-32) mmol/L Anion Gap (5.0-14.0) mmol/L BUN (7-18) mg/dL Creatinine (0.8-1.3) mg/dL Est Cr Clr Drug Dosing mL/min Estimated GFR (MDRD) (>60) Glucose (74-106) mg/dL Calcium (8.5-10.1) mg/dL Urine Color Yellow (YELLOW) Urine Appearance Clear (CLEAR) Urine pH 6.0 (5.0-8.0) Ur Specific Aurora >= 1.030 (1.008-1.030) Urine Protein 100 H (NEGATIVE) mg/dL Urine Glucose (UA) Negative (NEGATIVE) mg/dL Urine Ketones 80 H (NEGATIVE) mg/dL Urine Occult Blood Large H (NEGATIVE) Urine Nitrite Negative (NEGATIVE) Urine Bilirubin Small H (NEGATIVE) Urine Urobilinogen 4.0 H (0.2-1.0) EU/dL Ur Leukocyte Esterase Negative (NEGATIVE) Urine RBC Semi-packed H (0-5) Urine WBC 0-5 (0-5) Ur Epithelial Cells Rare Amorphous Sediment Occasional Urine Bacteria Occasional Urine Mucus Occasional Fluid Type Synovial fluid Fluid WBC 6897 /ul Fluid RBC 4905 /ul Fluid Diff Comment Synovial fluid Fluid Mononuclear Cell 28 % Fl Polymorphonucl Cell 72 % 07/12/ Range/Units 04:30 WBC (4.5-11.0) K/uL RBC (4.30-5.90) M/uL Hgb (12.0-15.0) g/dL Hct (40.0-54.0) % MCV (80-98) fL MCH (27-31) pg MCHC (32-36) % Plt Count (150-400) K/uL Neut % (Auto) (36-66) % Lymph % (Auto) (24-44) % Eagle % (Auto) (2-6) % Eos % (Auto) (2-4) % Baso % (Auto) (0-1) % Sodium 136 L (140-148) mmol/L Potassium 3.7 (3.6-5.2) mmol/L Chloride 101 (100-108) mmol/L Carbon Dioxide 22 (21-32) mmol/L Anion Gap 16.7 H (5.0-14.0) mmol/L BUN 11 (7-18) mg/dL Creatinine 0.9 (0.8-1.3) mg/dL Est Cr Clr Drug Dosing 76.00 mL/min Estimated GFR (MDRD) > 60 (>60) Glucose 127 H (74-106) mg/dL Calcium 8.5 (8.5-10.1) mg/dL Urine Color (YELLOW) Urine Appearance (CLEAR) Urine pH (5.0-8.0) Ur Specific Aurora (1.008-1.030) Urine Protein (NEGATIVE) mg/dL Urine Glucose (UA) (NEGATIVE) mg/dL Urine Ketones (NEGATIVE) mg/dL Urine Occult Blood (NEGATIVE) Urine Nitrite (NEGATIVE) Urine Bilirubin (NEGATIVE) Urine Urobilinogen (0.2-1.0) EU/dL Ur Leukocyte Esterase (NEGATIVE) Urine RBC (0-5) Urine WBC (0-5) Ur Epithelial Cells Amorphous Sediment Urine Bacteria Urine Mucus Fluid Type Fluid WBC /ul Fluid RBC /ul Fluid Diff Comment Fluid Mononuclear Cell % Fl Polymorphonucl Cell % Kirk Results Last 24 Hours: Microbiology 04/15/21 16:40 Aerobic Blood Culture - Preliminary Blood - Arm, Right NO GROWTH AFTER 1 DAY Anaerobic Blood Culture - Preliminary NO GROWTH AFTER 1 DAY 04/15/21 16:48 Aerobic Blood Culture - Preliminary Blood - Arm, Right NO GROWTH AFTER 1 DAY Anaerobic Blood Culture - Preliminary NO GROWTH AFTER 1 DAY 04/15/21 18:42 Gram Stain - Final Joint / Synovial Fluid - Knee, Right Body Fluid Culture - Preliminary Aerobic Culture - Final Anaerobic Culture - Final Med Orders - Current: Current Medications Acetaminophen (Acetaminophen 325 Mg Tab) 650 mg PO Q4H PRN PRN Reason: Pain (Mild 1-3)/fever Last Admin: 04/16/21 17:56 Dose: 650 mg Documented by: Sodium Chloride (Normal Saline) 1,000 mls @ 125 mls/hr IV ASDIRECTED [facility] Last Admin: 04/16/21 16:26 Dose: 125 mls/hr Documented by: Vancomycin HCl 1.25 gm/ Sodium (Chloride) 250 mls @ 166.667 mls/hr IV Q12H [facility] Last Admin: 04/16/21 17:55 Dose: 166.667 mls/hr Documented by: Ceftriaxone Sodium 2 gm/ (Sodium Chloride) 50 mls @ 100 mls/hr IV Q24H [facility] Last Admin: 04/16/21 16:27 Dose: 100 mls/hr Documented by: Ondansetron HCl (Ondansetron 4 Mg/2 Ml Sdv) 4 mg IV Q4H PRN PRN Reason: Nausea/Vomiting Oxycodone HCl (Oxycodone 5 Mg Tab) 5 mg PO Q4H PRN PRN Reason: Pain (moderate 4-6) Oxycodone HCl (Oxycodone 5 Mg Tab) 10 mg PO Q4H PRN PRN Reason: Pain (severe 7-10) Last Admin: 04/16/21 17:56 Dose: 10 mg Documented by: Pantoprazole Sodium (Pantoprazole 40 Mg Tab.Cr) 40 mg PO ACBREAKFAST [facility] Last Admin: 04/16/21 10:22 Dose: Not Given Documented by: Polyethylene Glycol (Polyethylene Glycol 3350 Powder 17 Gm Packet) 17 gm PO DAILY PRN PRN Reason: Constipation Propranolol HCl (Propranolol 40 Mg Tab) 20 mg PO BID PRN PRN Reason: Other Sodium Chloride (Sodium Chloride 0.9% 10 Ml Syringe) 10 ml FLUSH ASDIRECTED PRN PRN Reason: Keep Vein Open Discontinued Medications Acetaminophen (Acetaminophen 325 Mg Tab) 325 mg PO NOW ONE Stop: 04/15/21 18:29 Last Admin: 04/15/21 18:37 Dose: 325 mg Documented by: Acetaminophen (Acetaminophen 325 Mg Tab) 325 mg PO NOW ONE Stop: 04/15/21 18:30 Last Admin: 04/15/21 18:49 Dose: 325 mg Documented by: Fentanyl (Fentanyl 100 Mcg/2 Ml Sdv) 50 mcg IVPUSH ONETIME ONE Stop: 04/15/21 16:34 Last Admin: 04/15/21 16:51 Dose: 50 mcg Documented by: Fentanyl (Fentanyl 100 Mcg/2 Ml Sdv) 50 mcg IVPUSH ONETIME ONE Stop: 04/15/21 18:29 Last Admin: 04/15/21 18:44 Dose: 50 mcg Documented by: Sodium Chloride (Normal Saline) 1,750 mls @ 1,000 mls/hr IV .Bolus [facility] Last Admin: 04/15/21 16:51 Dose: 1,000 mls/hr Documented by: Ceftriaxone Sodium 2 gm/ (Sodium Chloride) 50 mls @ 100 mls/hr IV ONETIME ONE Stop: 04/15/21 17:09 Last Admin: 04/15/21 17:08 Dose: 100 mls/hr Documented by: Ceftriaxone Sodium 2 gm/ (Sodium Chloride) 50 mls @ 100 mls/hr IV Q24H [facility] Lidocaine HCl (Lidocaine 1% 5 Ml Sdv) 5 ml INJECT ONETIME ONE Stop: 04/15/21 17:28 Last Admin: 04/15/21 17:36 Dose: 5 ml Documented by: Metoclopramide HCl (Metoclopramide 10 Mg/2 Ml Sdv) 5 mg IV ONETIME ONE Stop: 04/15/21 18:31 Last Admin: 04/15/21 18:38 Dose: 5 mg Documented by: Oxycodone HCl (Oxycodone 5 Mg Tab) 5 mg PO Q4H PRN PRN Reason: Pain (moderate 4-6) Last Admin: 04/16/21 13:14 Dose: 5 mg Documented by: Pantoprazole Sodium (Pantoprazole 40 Mg Tab.Cr) 40 mg PO DAILY [facility] Sodium Chloride (Sodium Chloride 0.9% 10 Ml Syringe) 10 ml FLUSH ASDIRECTED PRN PRN Reason: Keep Vein Open Last Admin: 04/15/21 16:53 Dose: 10 ml Documented by: Vancomycin HCl (Vancomycin 1 Gm Sdv) 1 gm IV .PHARMACY TO DOSE [facility] Stop: 04/16/21 07:30 - Exam General: Alert, Oriented, Cooperative HEENT: Pupils Equal, EOMI, Mucous Membr. Moist/Sebring Lungs: Clear to Auscultation, Normal Respiratory Effort Cardiovascular: Regular Rate, Regular Rhythm GI/Abdominal Exam: Normal Bowel Sounds, Soft, Non-Tender, No Distention Back Exam: Normal Inspection Extremities: Joint Swelling, Leg Pain, Redness Skin: Warm, Dry, Intact Neurological: No New Focal Deficit Psy/Mental Status: Alert, Normal Affect, Normal Mood - Patient Data Lab Results Last 24 hrs: Laboratory Results - last 24 hr 04/15/21 04/15/21 04/16/21 Range/Units 18:42 21:03 04:30 WBC 13.3 H (4.5-11.0) K/uL RBC 4.59 (4.30-5.90) M/uL Hgb 13.4 (12.0-15.0) g/dL Hct 39.3 L (40.0-54.0) % MCV 86 (80-98) fL MCH 29 (27-31) pg MCHC 34 (32-36) % Plt Count 174 (150-400) K/uL Neut % (Auto) 74.0 H (36-66) % Lymph % (Auto) 11.1 L (24-44) % Eagle % (Auto) 14.6 H (2-6) % Eos % (Auto) 0.1 L (2-4) % Baso % (Auto) 0.2 (0-1) % Sodium (140-148) mmol/L Potassium (3.6-5.2) mmol/L Chloride (100-108) mmol/L Carbon Dioxide (21-32) mmol/L Anion Gap (5.0-14.0) mmol/L BUN (7-18) mg/dL Creatinine (0.8-1.3) mg/dL Est Cr Clr Drug Dosing mL/min Estimated GFR (MDRD) (>60) Glucose (74-106) mg/dL Calcium (8.5-10.1) mg/dL Urine Color Yellow (YELLOW) Urine Appearance Clear (CLEAR) Urine pH 6.0 (5.0-8.0) Ur Specific Aurora >= 1.030 (1.008-1.030) Urine Protein 100 H (NEGATIVE) mg/dL Urine Glucose (UA) Negative (NEGATIVE) mg/dL Urine Ketones 80 H (NEGATIVE) mg/dL Urine Occult Blood Large H (NEGATIVE) Urine Nitrite Negative (NEGATIVE) Urine Bilirubin Small H (NEGATIVE) Urine Urobilinogen 4.0 H (0.2-1.0) EU/dL Ur Leukocyte Esterase Negative (NEGATIVE) Urine RBC Semi-packed H (0-5) Urine WBC 0-5 (0-5) Ur Epithelial Cells Rare Amorphous Sediment Occasional Urine Bacteria Occasional Urine Mucus Occasional Fluid Type Synovial fluid Fluid WBC 6897 /ul Fluid RBC 4905 /ul Fluid Diff Comment Synovial fluid Fluid Mononuclear Cell 28 % Fl Polymorphonucl Cell 72 % 04/16/21 Range/Units 04:30 WBC (4.5-11.0) K/uL RBC (4.30-5.90) M/uL Hgb (12.0-15.0) g/dL Hct (40.0-54.0) % MCV (80-98) fL MCH (27-31) pg MCHC (32-36) % Plt Count (150-400) K/uL Neut % (Auto) (36-66) % Lymph % (Auto) (24-44) % Eagle % (Auto) (2-6) % Eos % (Auto) (2-4) % Baso % (Auto) (0-1) % Sodium 136 L (140-148) mmol/L Potassium 3.7 (3.6-5.2) mmol/L Chloride 101 (100-108) mmol/L Carbon Dioxide 22 (21-32) mmol/L Anion Gap 16.7 H (5.0-14.0) mmol/L BUN 11 (7-18) mg/dL Creatinine 0.9 (0.8-1.3) mg/dL Est Cr Clr Drug Dosing 76.00 mL/min Estimated GFR (MDRD) > 60 (>60) Glucose 127 H (74-106) mg/dL Calcium 8.5 (8.5-10.1) mg/dL Urine Color (YELLOW) Urine Appearance (CLEAR) Urine pH (5.0-8.0) Ur Specific Aurora (1.008-1.030) Urine Protein (NEGATIVE) mg/dL Urine Glucose (UA) (NEGATIVE) mg/dL Urine Ketones (NEGATIVE) mg/dL Urine Occult Blood (NEGATIVE) Urine Nitrite (NEGATIVE) Urine Bilirubin (NEGATIVE) Urine Urobilinogen (0.2-1.0) EU/dL Ur Leukocyte Esterase (NEGATIVE) Urine RBC (0-5) Urine WBC (0-5) Ur Epithelial Cells Amorphous Sediment Urine Bacteria Urine Mucus Fluid Type Fluid WBC /ul Fluid RBC /ul Fluid Diff Comment Fluid Mononuclear Cell % Fl Polymorphonucl Cell % Result Diagrams: 04/16/21 04:30 04/16/21 04:30 Kirk Results Last 24 hrs: Microbiology 04/15/21 16:40 Aerobic Blood Culture - Preliminary Blood - Arm, Right NO GROWTH AFTER 1 DAY Anaerobic Blood Culture - Preliminary NO GROWTH AFTER 1 DAY 04/15/21 16:48 Aerobic Blood Culture - Preliminary Blood - Arm, Right NO GROWTH AFTER 1 DAY Anaerobic Blood Culture - Preliminary NO GROWTH AFTER 1 DAY 04/15/21 18:42 Gram Stain - Final Joint / Synovial Fluid - Knee, Right Body Fluid Culture - Preliminary Aerobic Culture - Final Anaerobic Culture - Final Sepsis Event Note - Evaluation Sepsis Screening Result: No Definite Risk - Focused Exam Vital Signs: Vital Signs Temp Temp Pulse Resp BP Pulse Ox 04/16/21 19:00 98.8 F 125 H 16 120/61 93 L 04/16/21 18:26 97.6 F 04/16/21 14:29 100.7 F H 119 H 18 129/90 96 04/16/21 10:17 98.6 F 96 18 138/75 95 - Problem List & Annotations (1) Septic arthritis SNOMED Code(s): 703804748 Code(s): M00.9 - PYOGENIC ARTHRITIS, UNSPECIFIED Status: Acute Current Visit: Yes (2) Anticoagulant long-term use SNOMED Code(s): 272316104 Code(s): Z79.01 - [employer] (CURRENT) USE OF ANTICOAGULANTS Status: Acute Current Visit: Yes - Problem List Review Problem List Initiated/Reviewed/Updated: Yes - My Orders Last 24 Hours: My Active Orders 04/16/21 16:06 Consult to Orthopedics [CONS] Routine 04/16/21 16:07 Notify Provider Consults [RC] ASDIRECTED 04/17/21 Breakfast Regular Diet [DIET] - Plan Plan:: ASSESSMENT AND PLAN SEPTIC ARTHRITIS RIGHT KNEE-status post total knee arthroplasty done 2 years ago. Increased pain, swelling, erythema, fever and chills over the past 2 days. CRP is 12 and white blood cell count is mildly to moderately elevated. He is tachycardic on initial presentation consistent with early sepsis. He has received vigorous IV fluid replacement. Joint has been aspirated cell counts and Gram stain are pending. He has been started on IV antibiotic therapy while in the emergency department. -Blood and joint cultures pending -Continue IV fluids -Consult Dr. Castro-recommended possible surgery on Friday or pending bone scan -Will allow for diet tomorrow in the morning and overnight tonight -IV vancomycin and ceftriaxone, pending culture results RECENT DVT-complicating back surgery done earlier this spring. On long-term oral anticoagulation with Xarelto. -Hold Xarelto for possible surgery by Dr. Castro on Friday or MAINTENANCE ISSUES -DVT prophylaxis: Not able to anticoagulate due to possible surgery, SCDs not indicated as possible septic joint on right lower extremity -GI prophylaxis; not indicated -Luther catheter; not indicated -Nutrition; regular diet, n.p.o. after midnight -Nicotine dependence; not required CODE STATUS-FULL CODE Disposition: Pending joint cultures, continuing antibiotics. Possible surgery with Dr. Castro on Friday or . Continue to hold Xarelto. Ele Ngo DO
[2021-04-17] MEDS: Sodium Chloride 0.9% 1,000 ML IV SCH (03:27)
[2021-04-17] MEDS: Acetaminophen 325 MG Tab PO PRN ×5 (03:31→20:34)
[2021-04-17] MEDS: oxyCODONE 5 MG Tab PO PRN ×5 (03:31→20:34)
[2021-04-17] MEDS: Pantoprazole 40 MG Tab.CR PO SCH (08:00)
--- NOTE | 2021-04-17 08:42 | PCM.CONSN ---
- General Info Date of Service: 04/17/21 Admission Dx/Problem (Free Text): Admission Diagnosis/Problem Admission Diagnosis/Problem Septic arthritis Functional Status: Reports: Tolerating Diet, Ambulating (with FWW, partial weight bear on R knee ), Urinating - Review of Systems General: Reports: Fever, Malaise Cardiovascular: Reports: No Symptoms Gastrointestinal: Reports: No Symptoms Musculoskeletal: Reports: Leg Pain (right ), Joint Pain (right knee ), Joint Swelling (right knee ) Skin: Reports: Rash (R calf ) Neurological: Reports: No Symptoms Psychiatric: Reports: No Symptoms - Patient Data Vitals - Most Recent: Last Vital Signs Temp 98.9 F 04/17/21 08:00 Pulse 105 H 04/17/21 08:00 Resp 16 04/17/21 08:00 BP 129/73 04/17/21 08:00 Pulse Ox 96 04/17/21 08:00 Weight - Most Recent: 185 lb I&O - Last 24 Hours: Intake & Output 04/16/21 04/17/21 04/17/21 22:59 06:59 14:59 Intake Total 1460 1284 Output Total 350 Balance 1460 934 Lab Results Last 24 Hours: Laboratory Results - last 24 hr 04/17/21 04/17/21 04/17/21 Range/Units 04:30 04:30 04:30 WBC 12.0 H (4.5-11.0) K/uL RBC 4.17 L (4.30-5.90) M/uL Hgb 12.0 (12.0-15.0) g/dL Hct 35.7 L (40.0-54.0) % MCV 86 (80-98) fL MCH 29 (27-31) pg MCHC 34 (32-36) % Plt Count 172 (150-400) K/uL Sodium 137 L (140-148) mmol/L Potassium 3.7 (3.6-5.2) mmol/L Chloride 104 (100-108) mmol/L Carbon Dioxide 20 L (21-32) mmol/L Anion Gap 16.7 H (5.0-14.0) mmol/L BUN 11 (7-18) mg/dL Creatinine 0.8 (0.8-1.3) mg/dL Est Cr Clr Drug Dosing 85.50 mL/min Estimated GFR (MDRD) > 60 (>60) Glucose 149 H (74-106) mg/dL Calcium 8.4 L (8.5-10.1) mg/dL Vancomycin Trough 5.6 L (10.0-20.0) ug/mL Kirk Results Last 24 Hours: Microbiology 04/15/21 18:42 Gram Stain - Final Joint / Synovial Fluid - Knee, Right Body Fluid Culture - Final Beta Strep Not Group A Or B Aerobic Culture - Final Anaerobic Culture - Final 04/15/21 16:40 Aerobic Blood Culture - Preliminary Blood - Arm, Right NO GROWTH AFTER 1 DAY Anaerobic Blood Culture - Preliminary NO GROWTH AFTER 1 DAY 04/15/21 16:48 Aerobic Blood Culture - Preliminary Blood - Arm, Right NO GROWTH AFTER 1 DAY Anaerobic Blood Culture - Preliminary NO GROWTH AFTER 1 DAY Med Orders - Current: Current Medications Acetaminophen (Acetaminophen 325 Mg Tab) 650 mg PO Q4H PRN PRN Reason: Pain (Mild 1-3)/fever Last Admin: 04/17/21 07:56 Dose: 650 mg Documented by: Sodium Chloride (Normal Saline) 1,000 mls @ 125 mls/hr IV ASDIRECTED [facility] Last Admin: 04/17/21 03:27 Dose: 125 mls/hr Documented by: Vancomycin HCl 1.25 gm/ Sodium (Chloride) 250 mls @ 166.667 mls/hr IV Q12H [facility] Stop: 04/17/21 10:00 Last Admin: 04/17/21 07:00 Dose: 166.667 mls/hr Documented by: Ceftriaxone Sodium 2 gm/ (Sodium Chloride) 50 mls @ 100 mls/hr IV Q24H [facility] Last Admin: 04/16/21 16:27 Dose: 100 mls/hr Documented by: Vancomycin HCl 1.25 gm/ Sodium (Chloride) 250 mls @ 165 mls/hr IV Q8H [facility] Ondansetron HCl (Ondansetron 4 Mg/2 Ml Sdv) 4 mg IV Q4H PRN PRN Reason: Nausea/Vomiting Oxycodone HCl (Oxycodone 5 Mg Tab) 5 mg PO Q4H PRN PRN Reason: Pain (moderate 4-6) Oxycodone HCl (Oxycodone 5 Mg Tab) 10 mg PO Q4H PRN PRN Reason: Pain (severe 7-10) Last Admin: 04/17/21 07:57 Dose: 10 mg Documented by: Pantoprazole Sodium (Pantoprazole 40 Mg Tab.Cr) 40 mg PO ACBREAKFAST [facility] Last Admin: 04/17/21 08:00 Dose: 40 mg Documented by: Polyethylene Glycol (Polyethylene Glycol 3350 Powder 17 Gm Packet) 17 gm PO DAILY PRN PRN Reason: Constipation Propranolol HCl (Propranolol 40 Mg Tab) 20 mg PO BID PRN PRN Reason: Other Sodium Chloride (Sodium Chloride 0.9% 10 Ml Syringe) 10 ml FLUSH ASDIRECTED PRN PRN Reason: Keep Vein Open Discontinued Medications Acetaminophen (Acetaminophen 325 Mg Tab) 325 mg PO NOW ONE Stop: 04/15/21 18:29 Last Admin: 04/15/21 18:37 Dose: 325 mg Documented by: Acetaminophen (Acetaminophen 325 Mg Tab) 325 mg PO NOW ONE Stop: 04/15/21 18:30 Last Admin: 04/15/21 18:49 Dose: 325 mg Documented by: Fentanyl (Fentanyl 100 Mcg/2 Ml Sdv) 50 mcg IVPUSH ONETIME ONE Stop: 04/15/21 16:34 Last Admin: 04/15/21 16:51 Dose: 50 mcg Documented by: Fentanyl (Fentanyl 100 Mcg/2 Ml Sdv) 50 mcg IVPUSH ONETIME ONE Stop: 04/15/21 18:29 Last Admin: 04/15/21 18:44 Dose: 50 mcg Documented by: Sodium Chloride (Normal Saline) 1,750 mls @ 1,000 mls/hr IV .Bolus [facility] Last Admin: 04/15/21 16:51 Dose: 1,000 mls/hr Documented by: Ceftriaxone Sodium 2 gm/ (Sodium Chloride) 50 mls @ 100 mls/hr IV ONETIME ONE Stop: 04/15/21 17:09 Last Admin: 04/15/21 17:08 Dose: 100 mls/hr Documented by: Ceftriaxone Sodium 2 gm/ (Sodium Chloride) 50 mls @ 100 mls/hr IV Q24H [facility] Lidocaine HCl (Lidocaine 1% 5 Ml Sdv) 5 ml INJECT ONETIME ONE Stop: 04/15/21 17:28 Last Admin: 04/15/21 17:36 Dose: 5 ml Documented by: Metoclopramide HCl (Metoclopramide 10 Mg/2 Ml Sdv) 5 mg IV ONETIME ONE Stop: 04/15/21 18:31 Last Admin: 04/15/21 18:38 Dose: 5 mg Documented by: Oxycodone HCl (Oxycodone 5 Mg Tab) 5 mg PO Q4H PRN PRN Reason: Pain (moderate 4-6) Last Admin: 04/16/21 13:14 Dose: 5 mg Documented by: Pantoprazole Sodium (Pantoprazole 40 Mg Tab.Cr) 40 mg PO DAILY [facility] Sodium Chloride (Sodium Chloride 0.9% 10 Ml Syringe) 10 ml FLUSH ASDIRECTED PRN PRN Reason: Keep Vein Open Last Admin: 04/15/21 16:53 Dose: 10 ml Documented by: Vancomycin HCl (Vancomycin 1 Gm Sdv) 1 gm IV .PHARMACY TO DOSE [facility] Stop: 04/16/21 07:30 - Exam General: Alert, Oriented, Cooperative, Mild Distress Extremities: Normal Capillary Refill, Joint Swelling (R knee ), Leg Pain (Right ), Increased Warmth (R knee ) Peripheral Pulses: 1+: Posterior Tibial (R) Skin: Warm (R knee ), Intact, Rash (R calf ) Wound/Incisions: No Drainage Neurological: No New Focal Deficit Psy/Mental Status: Alert, Normal Affect Sepsis Event Note - Evaluation Sepsis Screening Result: No Definite Risk - Focused Exam Vital Signs: Vital Signs Temp Temp Pulse Resp BP Pulse Ox 04/17/21 08:00 98.9 F 105 H 16 129/73 96 04/17/21 03:31 100.6 F 04/17/21 03:27 100.6 F 109 H 16 153/82 H 94 L 04/16/21 22:51 98.4 F 98 16 142/83 H 92 L Consult PN Assessment/Plan (1) Painful total knee replacement, right SNOMED Code(s): 673166956 Code(s): T84.84XA - PAIN DUE TO INTERNAL ORTHOPEDIC PROSTH DEV/GRFT, INIT; Z96.651 - PRESENCE OF RIGHT ARTIFICIAL KNEE JOINT Current Visit: Yes Qualifiers: Encounter type: initial encounter Qualified Code(s): T84.84XA - Pain due to internal orthopedic prosthetic devices, implants and grafts, initial encounter; Z96.651 - Presence of right artificial knee joint Assessment:: Patient is a pleasant 70 y/o male, suspect right knee infection, is status post R TKA in 2019. Xrays taken yesterday revealed lucency around hardware, high suspicion of hardware loosening. No acute events overnight. Patient has had a few episodes of hypertension and tachycardia. Patient temperature reached 100.6F. Continues to endorse significant pain in R knee and difficulty weight bearing this morning. Endorsed feeling febrile with intermittent chills, in addition to malaise. Denied shortness of breath, chest pain, nor palpitations. Joint cultures resulted this morning; beta strep, not group A or B with few colonies and moderate growth. Nuclear Medicine is unavailable to perform bone scan until . Plan: * Due to persistent pain since operation and high suspicion of hardware loos ening, patient would like to proceed with surgical revision. Dr Castro reviewed joint cultures results with patient and spouse; anticipate this bacteria will be susceptible to a single stage revision. Hardware has been ordered for revision and will be here tomorrow. Anticipate single stage revision surgery of right knee tomorrow afternoon. Discussed risks and benefits of surgical procedure with single stage revision; patient and expressed understanding and would like to proceed. * Discontinued the bone scan order. * Will continue with current IV antibiotic regimen. * Awaiting final sensitivities on joint culture. * Hold patient's home xarelto in anticipation of surgery on Friday. * Patient diet will change to NPO at midnight tonight in anticipation of surgery on Friday. * Ortho clinic has reached out to [facility] for patients records; unable to push xrays to our system, will need to be mailed. Problem List Initiated/Reviewed/Updated: Yes My Orders Last 24 Hours: My Active Orders 04/16/21 16:16 Knee Min 4V Rt [CR] Routine 04/16/21 17:14 Bone Scan Limited [NM] Routine 04/16/21 17:16 oxyCODONE 5 mg PO Q4H PRN 04/16/21 17:17 oxyCODONE 10 mg PO Q4H PRN
--- NOTE | 2021-04-17 09:00 | CR ---
Knee Min 4V Rt CLINICAL HISTORY: Possible infection TKA FINDINGS: Patient has a total knee arthroplasty. There is some minimal periprosthetic lucency around the femoral component. The sunrise view shows some moderate lateral tilting of the patella. There is suprapatellar fullness which may represent joint effusion. Impression: There is some minimal periprosthetic lucency around the femoral component Moderate tilting of the patella Joint effusion
[2021-04-17] MEDS: cefTRIAXone 2 GM in Sodium Chloride 0.9% 50 ML IV SCH (16:10)
[2021-04-17] MEDS: Lactobacillus Rhamnosus GG (Probiotic) Cap PO SCH (20:35)
--- NOTE | 2021-04-17 21:14 | PCM.PN ---
- General Info Date of Service: 04/17/21 Admission Dx/Problem (Free Text): Admission Diagnosis/Problem Admission Diagnosis/Problem Septic arthritis Subjective Update: Mr. Louis is doing well today, he does endorse pain in the right knee. It remains edematous and very warm to touch. He continues to have chills. Dr. Driver spoke with him today about going to surgery tomorrow to treat the septic joint. Him and his have agreed that he would like to stay in our care and have the surgery done tomorrow. He will remain on antibiotics. He will need to be n.p.o. after midnight tonight in preparation for surgery. Functional Status: Reports: Pain Controlled, Tolerating Diet, Urinating - Review of Systems General: Reports: Fever, Chills, Appetite HEENT: Reports: Sinus Congestion Pulmonary: Reports: No Symptoms. Denies: Shortness of Breath, Cough Cardiovascular: Reports: No Symptoms. Denies: Chest Pain, Palpitations Gastrointestinal: Reports: No Symptoms. Denies: Abdominal Pain, Constipation, Diarrhea Genitourinary: Reports: Frequency. Denies: Dysuria, Pain, Urgency, Incontinence Musculoskeletal: Reports: Joint Pain, Joint Swelling Skin: Reports: No Symptoms. Denies: Rash Neurological: Reports: No Symptoms. Denies: Confusion, Dizziness, Headache Psychiatric: Reports: No Symptoms - Patient Data Vitals - Most Recent: Last Vital Signs Temp 99.7 F 04/17/21 20:34 Pulse 99 04/17/21 20:00 Resp 16 04/17/21 20:00 BP 133/76 04/17/21 20:00 Pulse Ox 94 L 04/17/21 20:00 Weight - Most Recent: 185 lb I&O - Last 24 Hours: Intake & Output 04/17/21 04/17/21 04/17/21 06:59 14:59 22:59 Intake Total 1668 010 0750 Output Total 350 Balance 094 [id number] Lab Results Last 24 Hours: Laboratory Results - last 24 hr 04/16/21 04/17/21 04/17/21 Range/Units 17:19 04:30 04:30 WBC 12.0 H (4.5-11.0) K/uL RBC 4.17 L (4.30-5.90) M/uL Hgb 12.0 (12.0-15.0) g/dL Hct 35.7 L (40.0-54.0) % MCV 86 (80-98) fL MCH 29 (27-31) pg MCHC 34 (32-36) % Plt Count 172 (150-400) K/uL Sodium (140-148) mmol/L Potassium (3.6-5.2) mmol/L Chloride (100-108) mmol/L Carbon Dioxide (21-32) mmol/L Anion Gap (5.0-14.0) mmol/L BUN (7-18) mg/dL Creatinine (0.8-1.3) mg/dL Est Cr Clr Drug Dosing mL/min Estimated GFR (MDRD) (>60) Glucose (74-106) mg/dL Calcium (8.5-10.1) mg/dL Synovial Crystals Note: (None seen) Vancomycin Trough 5.6 L (10.0-20.0) ug/mL 04/17/21 Range/Units 04:30 WBC (4.5-11.0) K/uL RBC (4.30-5.90) M/uL Hgb (12.0-15.0) g/dL Hct (40.0-54.0) % MCV (80-98) fL MCH (27-31) pg MCHC (32-36) % Plt Count (150-400) K/uL Sodium 137 L (140-148) mmol/L Potassium 3.7 (3.6-5.2) mmol/L Chloride 104 (100-108) mmol/L Carbon Dioxide 20 L (21-32) mmol/L Anion Gap 16.7 H (5.0-14.0) mmol/L BUN 11 (7-18) mg/dL Creatinine 0.8 (0.8-1.3) mg/dL Est Cr Clr Drug Dosing 85.50 mL/min Estimated GFR (MDRD) > 60 (>60) Glucose 149 H (74-106) mg/dL Calcium 8.4 L (8.5-10.1) mg/dL Synovial Crystals (None seen) Vancomycin Trough (10.0-20.0) ug/mL Kirk Results Last 24 Hours: Microbiology 04/15/21 16:48 Aerobic Blood Culture - Preliminary Blood - Arm, Right NO GROWTH AFTER 2 DAYS Anaerobic Blood Culture - Preliminary NO GROWTH AFTER 2 DAYS 04/15/21 16:40 Aerobic Blood Culture - Preliminary Blood - Arm, Right NO GROWTH AFTER 2 DAYS Anaerobic Blood Culture - Preliminary NO GROWTH AFTER 2 DAYS 04/15/21 18:42 Gram Stain - Final Joint / Synovial Fluid - Knee, Right Body Fluid Culture - Final Beta Strep Not Group A Or B Aerobic Culture - Final Anaerobic Culture - Final Med Orders - Current: Current Medications Acetaminophen (Acetaminophen 325 Mg Tab) 650 mg PO Q4H PRN PRN Reason: Pain (Mild 1-3)/fever Last Admin: 04/17/21 20:34 Dose: 650 mg Documented by: Sodium Chloride (Normal Saline) 1,000 mls @ 125 mls/hr IV ASDIRECTED [facility] Last Admin: 04/17/21 03:27 Dose: 125 mls/hr Documented by: Ceftriaxone Sodium 2 gm/ (Sodium Chloride) 50 mls @ 100 mls/hr IV Q24H [facility] Last Admin: 04/17/21 16:10 Dose: 100 mls/hr Documented by: Vancomycin HCl 1.25 gm/ Sodium (Chloride) 250 mls @ 165 mls/hr IV Q8H [facility] Last Admin: 04/17/21 14:24 Dose: 165 mls/hr Documented by: Lactobacillus Rhamnosus (Lactobacillus Rhamnosus Gg (Probiotic) Cap) 1 cap PO BID [facility] Last Admin: 04/17/21 20:35 Dose: 1 cap Documented by: Ondansetron HCl (Ondansetron 4 Mg/2 Ml Sdv) 4 mg IV Q4H PRN PRN Reason: Nausea/Vomiting Oxycodone HCl (Oxycodone 5 Mg Tab) 5 mg PO Q4H PRN PRN Reason: Pain (moderate 4-6) Oxycodone HCl (Oxycodone 5 Mg Tab) 10 mg PO Q4H PRN PRN Reason: Pain (severe 7-10) Last Admin: 04/17/21 20:34 Dose: 10 mg Documented by: Pantoprazole Sodium (Pantoprazole 40 Mg Tab.Cr) 40 mg PO ACBREAKFAST [facility] Last Admin: 04/17/21 08:00 Dose: 40 mg Documented by: Polyethylene Glycol (Polyethylene Glycol 3350 Powder 17 Gm Packet) 17 gm PO DAILY PRN PRN Reason: Constipation Propranolol HCl (Propranolol 40 Mg Tab) 20 mg PO BID PRN PRN Reason: Other Last Admin: 04/17/21 12:40 Dose: 20 mg Documented by: Sodium Chloride (Sodium Chloride 0.9% 10 Ml Syringe) 10 ml FLUSH ASDIRECTED PRN PRN Reason: Keep Vein Open Discontinued Medications Acetaminophen (Acetaminophen 325 Mg Tab) 325 mg PO NOW ONE Stop: 04/15/21 18:29 Last Admin: 04/15/21 18:37 Dose: 325 mg Documented by: Acetaminophen (Acetaminophen 325 Mg Tab) 325 mg PO NOW ONE Stop: 04/15/21 18:30 Last Admin: 04/15/21 18:49 Dose: 325 mg Documented by: Fentanyl (Fentanyl 100 Mcg/2 Ml Sdv) 50 mcg IVPUSH ONETIME ONE Stop: 04/15/21 16:34 Last Admin: 04/15/21 16:51 Dose: 50 mcg Documented by: Fentanyl (Fentanyl 100 Mcg/2 Ml Sdv) 50 mcg IVPUSH ONETIME ONE Stop: 04/15/21 18:29 Last Admin: 04/15/21 18:44 Dose: 50 mcg Documented by: Sodium Chloride (Normal Saline) 1,750 mls @ 1,000 mls/hr IV .Bolus [facility] Last Admin: 04/15/21 16:51 Dose: 1,000 mls/hr Documented by: Ceftriaxone Sodium 2 gm/ (Sodium Chloride) 50 mls @ 100 mls/hr IV ONETIME ONE Stop: 04/15/21 17:09 Last Admin: 04/15/21 17:08 Dose: 100 mls/hr Documented by: Ceftriaxone Sodium 2 gm/ (Sodium Chloride) 50 mls @ 100 mls/hr IV Q24H [facility] Vancomycin HCl 1.25 gm/ Sodium (Chloride) 250 mls @ 166.667 mls/hr IV Q12H [facility] Stop: 04/17/21 10:00 Last Admin: 04/17/21 07:00 Dose: 166.667 mls/hr Documented by: Lidocaine HCl (Lidocaine 1% 5 Ml Sdv) 5 ml INJECT ONETIME ONE Stop: 04/15/21 17:28 Last Admin: 04/15/21 17:36 Dose: 5 ml Documented by: Metoclopramide HCl (Metoclopramide 10 Mg/2 Ml Sdv) 5 mg IV ONETIME ONE Stop: 04/15/21 18:31 Last Admin: 04/15/21 18:38 Dose: 5 mg Documented by: Oxycodone HCl (Oxycodone 5 Mg Tab) 5 mg PO Q4H PRN PRN Reason: Pain (moderate 4-6) Last Admin: 04/16/21 13:14 Dose: 5 mg Documented by: Pantoprazole Sodium (Pantoprazole 40 Mg Tab.Cr) 40 mg PO DAILY [facility] Sodium Chloride (Sodium Chloride 0.9% 10 Ml Syringe) 10 ml FLUSH ASDIRECTED PRN PRN Reason: Keep Vein Open Last Admin: 04/15/21 16:53 Dose: 10 ml Documented by: Vancomycin HCl (Vancomycin 1 Gm Sdv) 1 gm IV .PHARMACY TO DOSE [facility] Stop: 04/16/21 07:30 - Exam General: Alert, Oriented, Cooperative, No Acute Distress HEENT: Pupils Equal, EOMI, Mucous Membr. Moist/[place] Lungs: Clear to Auscultation, Normal Respiratory Effort Cardiovascular: Regular Rate, Regular Rhythm GI/Abdominal Exam: Normal Bowel Sounds, Soft, Non-Tender, No Distention Extremities: No Pedal Edema, Joint Swelling, Redness Skin: Warm, Dry, Intact Neurological: No New Focal Deficit Psy/Mental Status: Alert, Normal Affect, Normal Mood - Patient Data Lab Results Last 24 hrs: Laboratory Results - last 24 hr 04/16/21 04/17/21 04/17/21 Range/Units 17:19 04:30 04:30 WBC 12.0 H (4.5-11.0) K/uL RBC 4.17 L (4.30-5.90) M/uL Hgb 12.0 (12.0-15.0) g/dL Hct 35.7 L (40.0-54.0) % MCV 86 (80-98) fL MCH 29 (27-31) pg MCHC 34 (32-36) % Plt Count 172 (150-400) K/uL Sodium (140-148) mmol/L Potassium (3.6-5.2) mmol/L Chloride (100-108) mmol/L Carbon Dioxide (21-32) mmol/L Anion Gap (5.0-14.0) mmol/L BUN (7-18) mg/dL Creatinine (0.8-1.3) mg/dL Est Cr Clr Drug Dosing mL/min Estimated GFR (MDRD) (>60) Glucose (74-106) mg/dL Calcium (8.5-10.1) mg/dL Synovial Crystals Note: (None seen) Vancomycin Trough 5.6 L (10.0-20.0) ug/mL 04/17/21 Range/Units 04:30 WBC (4.5-11.0) K/uL RBC (4.30-5.90) M/uL Hgb (12.0-15.0) g/dL Hct (40.0-54.0) % MCV (80-98) fL MCH (27-31) pg MCHC (32-36) % Plt Count (150-400) K/uL Sodium 137 L (140-148) mmol/L Potassium 3.7 (3.6-5.2) mmol/L Chloride 104 (100-108) mmol/L Carbon Dioxide 20 L (21-32) mmol/L Anion Gap 16.7 H (5.0-14.0) mmol/L BUN 11 (7-18) mg/dL Creatinine 0.8 (0.8-1.3) mg/dL Est Cr Clr Drug Dosing 85.50 mL/min Estimated GFR (MDRD) > 60 (>60) Glucose 149 H (74-106) mg/dL Calcium 8.4 L (8.5-10.1) mg/dL Synovial Crystals (None seen) Vancomycin Trough (10.0-20.0) ug/mL Result Diagrams: 04/17/21 04:30 04/17/21 04:30 Kirk Results Last 24 hrs: Microbiology 04/15/21 16:48 Aerobic Blood Culture - Preliminary Blood - Arm, Right NO GROWTH AFTER 2 DAYS Anaerobic Blood Culture - Preliminary NO GROWTH AFTER 2 DAYS 04/15/21 16:40 Aerobic Blood Culture - Preliminary Blood - Arm, Right NO GROWTH AFTER 2 DAYS Anaerobic Blood Culture - Preliminary NO GROWTH AFTER 2 DAYS 04/15/21 18:42 Gram Stain - Final Joint / Synovial Fluid - Knee, Right Body Fluid Culture - Final Beta Strep Not Group A Or B Aerobic Culture - Final Anaerobic Culture - Final Sepsis Event Note - Evaluation Sepsis Screening Result: No Definite Risk - Focused Exam Vital Signs: Vital Signs Temp Temp Pulse Resp BP Pulse Ox 04/17/21 20:34 99.7 F 04/17/21 20:00 99.7 F 99 16 133/76 94 L 04/17/21 16:04 101.4 F H 93 16 156/82 H 96 04/17/21 12:20 98.5 F 101 H 149/90 H 90 L - Problem List & Annotations (1) Septic arthritis SNOMED Code(s): 842260231 Code(s): M00.9 - PYOGENIC ARTHRITIS, UNSPECIFIED Status: Acute Current Visit: Yes (2) Anticoagulant long-term use SNOMED Code(s): 753639041 Code(s): Z79.01 - INTERMEDIATE (CURRENT) USE OF ANTICOAGULANTS Status: Acute Current Visit: Yes - Problem List Review Problem List Initiated/Reviewed/Updated: Yes - My Orders Last 24 Hours: My Active Orders 04/17/21 Breakfast Regular Diet [DIET] - Plan Plan:: ASSESSMENT AND PLAN SEPTIC ARTHRITIS RIGHT KNEE-status post total knee arthroplasty done 2 years ago. -Blood cultures are negative so far -Joint cultures show a beta-hemolytic strep that is not group a or B -He does not endorse ever eating raw or undercooked fish at any time in the recent past -Consult Dr. Castro-planned for surgery tomorrow -Will be n.p.o. after midnight -IV vancomycin and ceftriaxone will continue until final culture results RECENT DVT-complicating back surgery done earlier this spring. On long-term oral anticoagulation with Xarelto. -Hold Xarelto for possible surgery by Dr. Castro Hyponatremia -This has been improving currently 127 -IV fluids have stopped, will reevaluate after surgery tomorrow MAINTENANCE ISSUES -DVT prophylaxis: Not able to anticoagulate due to possible surgery, SCDs not indicated as possible septic joint on right lower extremity -GI prophylaxis; not indicated -Luther catheter; not indicated -Nutrition; regular diet, n.p.o. after midnight -Nicotine dependence; not required CODE STATUS-FULL CODE Disposition: We will continue him on his current antibiotic regimen. He will be n.p.o. overnight in preparation for surgery tomorrow with Dr. Gloria Ngo,
[2021-04-18] MEDS: Acetaminophen 325 MG Tab PO PRN ×3 (01:42→11:24)
[2021-04-18] MEDS: oxyCODONE 5 MG Tab PO PRN ×4 (01:43→20:28)
[2021-04-18] MEDS ORDERED: Vancomycin 1 GM SDV ONE (07:20)
[2021-04-18] MEDS ORDERED: Povidone-Iodine 10% Soln 118.25 ML Bottle ONE (07:21)
[2021-04-18] MEDS: Pantoprazole 40 MG Tab.CR PO SCH (08:15)
[2021-04-18] MEDS: Lactobacillus Rhamnosus GG (Probiotic) Cap PO SCH ×2 (08:15→21:44)
[2021-04-18] MEDS: Sodium Chloride 0.9% 1,000 ML IV SCH (11:56)
[2021-04-18] MEDS ORDERED: Rocuronium 50 MG/5 ML Vial ONE (14:19)
[2021-04-18] MEDS ORDERED: Propofol 200 MG/20 ML SDV ONE (14:19)
[2021-04-18] MEDS ORDERED: fentaNYL 250 MCG/5 ML SDV ONE ×3 (14:19→17:58)
[2021-04-18] MEDS ORDERED: Succinylcholine 200 MG/10 ML MDV ONE (14:19)
[2021-04-18] MEDS ORDERED: Dexamethasone 4 MG/ML SDV ONE (14:19)
[2021-04-18] MEDS ORDERED: Ondansetron 4 MG/2 ML SDV ONE (14:19)
[2021-04-18] MEDS ORDERED: Neostigmine Methylsulfate 1 MG/ML 5 ML Syringe ONE (14:19)
[2021-04-18] MEDS ORDERED: Glycopyrrolate 0.2 MG/ML 5 ML MDV ONE (14:19)
[2021-04-18] MEDS ORDERED: Lactated Ringers 1,000 ML ONE (16:01)
[2021-04-18] MEDS ORDERED: Morphine 2 MG/ML SYRINGE IVPUSH PRN (18:35)
[2021-04-18] MEDS ORDERED: Acetaminophen/HYDROcodone 325-5 MG Tab PO PRN (18:35)
--- NOTE | 2021-04-18 18:35 | PCM.PN ---
- General Info Date of Service: 04/18/21 Admission Dx/Problem (Free Text): Admission Diagnosis/Problem Admission Diagnosis/Problem Septic arthritis Subjective Update: was doing well today however he did express pain in the right calf. He was also continuing to have pain in the right knee. He did not endorse fever or chills today. He was taken to surgery between 13:30 and 14:00 today. Functional Status: Reports: Tolerating Diet, Urinating - Review of Systems General: Reports: No Symptoms. Denies: Fever, Chills HEENT: Reports: No Symptoms. Denies: Headaches Pulmonary: Reports: No Symptoms. Denies: Shortness of Breath, Cough Cardiovascular: Reports: No Symptoms. Denies: Chest Pain, Palpitations Gastrointestinal: Reports: No Symptoms. Denies: Abdominal Pain, Nausea, Vomiting Genitourinary: Reports: No Symptoms. Denies: Dysuria, Frequency, Pain Musculoskeletal: Reports: Joint Pain, Joint Swelling Skin: Reports: No Symptoms. Denies: Rash Neurological: Reports: No Symptoms. Denies: Confusion, Dizziness, Headache Psychiatric: Reports: No Symptoms - Patient Data Vitals - Most Recent: Last Vital Signs Temp 97.4 F 04/18/21 15:00 Pulse 83 04/18/21 15:00 Resp 16 04/18/21 15:00 BP 140/87 04/18/21 15:00 Pulse Ox 96 04/18/21 15:00 Weight - Most Recent: 177 lb I&O - Last 24 Hours: Intake & Output 04/18/21 04/18/21 04/18/21 06:59 14:59 22:59 Intake Total 450 Output Total 300 Balance 150 Lab Results Last 24 Hours: Laboratory Results - last 24 hr 04/18/21 04/18/21 04/18/21 Range/Units 05:30 05:30 05:30 WBC 10.8 (4.5-11.0) K/uL RBC 4.04 L (4.30-5.90) M/uL Hgb 11.5 L (12.0-15.0) g/dL Hct 34.9 L (40.0-54.0) % MCV 86 (80-98) fL MCH 29 (27-31) pg MCHC 33 (32-36) % Plt Count 205 (150-400) K/uL Sodium 139 L (140-148) mmol/L Potassium 4.2 (3.6-5.2) mmol/L Chloride 104 (100-108) mmol/L Carbon Dioxide 26 (21-32) mmol/L Anion Gap 13.2 (5.0-14.0) mmol/L BUN 10 (7-18) mg/dL Creatinine 0.8 (0.8-1.3) mg/dL Est Cr Clr Drug Dosing 85.50 mL/min Estimated GFR (MDRD) > 60 (>60) Glucose 153 H (74-106) mg/dL Calcium 8.6 (8.5-10.1) mg/dL Blood Type B NEGATIVE Gel Antibody Screen Negative Kirk Results Last 24 Hours: Microbiology 04/15/21 16:48 Aerobic Blood Culture - Preliminary Blood - Arm, Right NO GROWTH AFTER 3 DAYS Anaerobic Blood Culture - Preliminary NO GROWTH AFTER 3 DAYS 04/15/21 16:40 Aerobic Blood Culture - Preliminary Blood - Arm, Right NO GROWTH AFTER 3 DAYS Anaerobic Blood Culture - Preliminary NO GROWTH AFTER 3 DAYS 04/18/21 16:16 Gram Stain - Final Knee, Right Med Orders - Current: Current Medications Acetaminophen (Acetaminophen 325 Mg Tab) 650 mg PO Q4H PRN PRN Reason: Pain (Mild 1-3)/fever Last Admin: 04/18/21 11:24 Dose: 650 mg Documented by: Sodium Chloride (Normal Saline) 1,000 mls @ 125 mls/hr IV ASDIRECTED [facility] Last Admin: 04/18/21 11:56 Dose: 125 mls/hr Documented by: Ceftriaxone Sodium 2 gm/ (Sodium Chloride) 50 mls @ 100 mls/hr IV Q24H [facility] Last Admin: 04/17/21 16:10 Dose: 100 mls/hr Documented by: Vancomycin HCl 1.25 gm/ Sodium (Chloride) 250 mls @ 165 mls/hr IV Q8H [facility] Last Admin: 04/18/21 13:10 Dose: 165 mls/hr Documented by: Lactobacillus Rhamnosus (Lactobacillus Rhamnosus Gg (Probiotic) Cap) 1 cap PO BID [facility] Last Admin: 04/18/21 08:15 Dose: 1 cap Documented by: Ondansetron HCl (Ondansetron 4 Mg/2 Ml Sdv) 4 mg IV Q4H PRN PRN Reason: Nausea/Vomiting Oxycodone HCl (Oxycodone 5 Mg Tab) 5 mg PO Q4H PRN PRN Reason: Pain (moderate 4-6) Last Admin: 04/18/21 06:10 Dose: 5 mg Documented by: Oxycodone HCl (Oxycodone 5 Mg Tab) 10 mg PO Q4H PRN PRN Reason: Pain (severe 7-10) Last Admin: 04/18/21 11:23 Dose: 10 mg Documented by: Pantoprazole Sodium (Pantoprazole 40 Mg Tab.Cr) 40 mg PO ACBREAKFAST [facility] Last Admin: 04/18/21 08:15 Dose: 40 mg Documented by: Polyethylene Glycol (Polyethylene Glycol 3350 Powder 17 Gm Packet) 17 gm PO DAILY PRN PRN Reason: Constipation Propranolol HCl (Propranolol 40 Mg Tab) 20 mg PO BID PRN PRN Reason: Other Last Admin: 04/17/21 12:40 Dose: 20 mg Documented by: Sodium Chloride (Sodium Chloride 0.9% 10 Ml Syringe) 10 ml FLUSH ASDIRECTED PRN PRN Reason: Keep Vein Open Discontinued Medications Acetaminophen (Acetaminophen 325 Mg Tab) 325 mg PO NOW ONE Stop: 04/15/21 18:29 Last Admin: 04/15/21 18:37 Dose: 325 mg Documented by: Acetaminophen (Acetaminophen 325 Mg Tab) 325 mg PO NOW ONE Stop: 04/15/21 18:30 Last Admin: 04/15/21 18:49 Dose: 325 mg Documented by: Dexamethasone (Dexamethasone 4 Mg/Ml Sdv) Confirm Administered Dose 4 mg .ROUTE .STK-MED ONE Stop: 04/18/21 14:20 Fentanyl (Fentanyl 100 Mcg/2 Ml Sdv) 50 mcg IVPUSH ONETIME ONE Stop: 04/15/21 16:34 Last Admin: 04/15/21 16:51 Dose: 50 mcg Documented by: Fentanyl (Fentanyl 100 Mcg/2 Ml Sdv) 50 mcg IVPUSH ONETIME ONE Stop: 04/15/21 18:29 Last Admin: 04/15/21 18:44 Dose: 50 mcg Documented by: Fentanyl (Fentanyl 250 Mcg/5 Ml Sdv) Confirm Administered Dose 250 mcg .ROUTE .STK-MED ONE Stop: 04/18/21 14:20 Fentanyl (Fentanyl 250 Mcg/5 Ml Sdv) Confirm Administered Dose 250 mcg .ROUTE .STK-MED ONE Stop: 04/18/21 16:22 Fentanyl (Fentanyl 250 Mcg/5 Ml Sdv) Confirm Administered Dose 250 mcg .ROUTE .STK-MED ONE Stop: 04/18/21 17:59 Glycopyrrolate (Glycopyrrolate 0.2 Mg/Ml 5 Ml Mdv) Confirm Administered Dose 1 mg .ROUTE .STK-MED ONE Stop: 04/18/21 14:20 Sodium Chloride (Normal Saline) 1,750 mls @ 1,000 mls/hr IV .Bolus [facility]IS[facility] Last Admin: 04/15/21 16:51 Dose: 1,000 mls/hr Documented by: Ceftriaxone Sodium 2 gm/ (Sodium Chloride) 50 mls @ 100 mls/hr IV ONETIME ONE Stop: 04/15/21 17:09 Last Admin: 04/15/21 17:08 Dose: 100 mls/hr Documented by: Ceftriaxone Sodium 2 gm/ (Sodium Chloride) 50 mls @ 100 mls/hr IV Q24H [facility] Vancomycin HCl 1.25 gm/ Sodium (Chloride) 250 mls @ 166.667 mls/hr IV Q12H [facility] Stop: 04/17/21 10:00 Last Admin: 04/17/21 07:00 Dose: 166.667 mls/hr Documented by: Lactated Ringer's (Ringers, Lactated) Confirm Administered Dose 1,000 mls @ as directed .ROUTE .STK-MED ONE Stop: 04/18/21 16:02 Lidocaine HCl (Lidocaine 1% 5 Ml Sdv) 5 ml INJECT ONETIME ONE Stop: 04/15/21 17:28 Last Admin: 04/15/21 17:36 Dose: 5 ml Documented by: Metoclopramide HCl (Metoclopramide 10 Mg/2 Ml Sdv) 5 mg IV ONETIME ONE Stop: 04/15/21 18:31 Last Admin: 04/15/21 18:38 Dose: 5 mg Documented by: Neostigmine Methylsulfate (Neostigmine Methylsulfate 1 Mg/Ml 5 Ml Syringe) Confirm Administered Dose 5 mg .ROUTE .STK-MED ONE Stop: 04/18/21 14:20 Ondansetron HCl (Ondansetron 4 Mg/2 Ml Sdv) Confirm Administered Dose 4 mg .ROUTE .STK-MED ONE Stop: 04/18/21 14:20 Oxycodone HCl (Oxycodone 5 Mg Tab) 5 mg PO Q4H PRN PRN Reason: Pain (moderate 4-6) Last Admin: 04/16/21 13:14 Dose: 5 mg Documented by: Pantoprazole Sodium (Pantoprazole 40 Mg Tab.Cr) 40 mg PO DAILY [facility] Povidone Iodine (Povidone-Iodine 10% Soln 118.25 Ml Bottle) Confirm Administered Dose 1 ml .ROUTE .STK-MED ONE Stop: 04/18/21 07:22 Last Admin: 04/18/21 16:31 Dose: 1 ml Documented by: Propofol (Propofol 200 Mg/20 Ml Sdv) Confirm Administered Dose 200 mg .ROUTE .STK-MED ONE Stop: 04/18/21 14:20 Rocuronium [place] (Rocuronium 50 Mg/5 Ml Vial) Confirm Administered Dose 50 mg .ROUTE .STK-MED ONE Stop: 04/18/21 14:20 Sodium Chloride (Sodium Chloride 0.9% 10 Ml Syringe) 10 ml FLUSH ASDIRECTED PRN PRN Reason: Keep Vein Open Last Admin: 04/15/21 16:53 Dose: 10 ml Documented by: Succinylcholine Chloride (Succinylcholine 200 Mg/10 Ml Mdv) Confirm Administered Dose 200 mg .ROUTE .STK-MED ONE Stop: 04/18/21 14:20 Vancomycin HCl (Vancomycin 1 Gm Sdv) 1 gm IV .PHARMACY TO DOSE [facility] Stop: 04/16/21 07:30 Vancomycin HCl (Vancomycin 1 Gm Sdv) Confirm Administered Dose 2 gm .ROUTE .STK- MED ONE Stop: 04/18/21 07:21 Last Admin: 04/18/21 16:30 Dose: 2 gm Documented by: - Exam Quality Assessment: No: Supplemental Oxygen, Central Line/PICC, Urine Catheter, DVT Prophylaxis, Skin Breakdown, Restraints General: Alert, Oriented, Cooperative, No Acute Distress HEENT: Pupils Equal, EOMI, Mucous Membr. Moist/[place] Neck: Supple Lungs: Clear to Auscultation, Normal Respiratory Effort Cardiovascular: Regular Rate, Regular Rhythm GI/Abdominal Exam: Normal Bowel Sounds, Soft, Non-Tender, No Distention Extremities: No Pedal Edema, Joint Swelling, Redness Skin: Warm, Dry, Intact Neurological: No New Focal Deficit Psy/Mental Status: Alert, Normal Affect, Normal Mood - Patient Data Lab Results Last 24 hrs: Laboratory Results - last 24 hr 07/04/18/21 04/18/21 Range/Units 05:30 05:30 05:30 WBC 10.8 (4.5-11.0) K/uL RBC 4.04 L (4.30-5.90) M/uL Hgb 11.5 L (12.0-15.0) g/dL Hct 34.9 L (40.0-54.0) % MCV 86 (80-98) fL MCH 29 (27-31) pg MCHC 33 (32-36) % Plt Count 205 (150-400) K/uL Sodium 139 L (140-148) mmol/L Potassium 4.2 (3.6-5.2) mmol/L Chloride 104 (100-108) mmol/L Carbon Dioxide 26 (21-32) mmol/L Anion Gap 13.2 (5.0-14.0) mmol/L BUN 10 (7-18) mg/dL Creatinine 0.8 (0.8-1.3) mg/dL Est Cr Clr Drug Dosing 85.50 mL/min Estimated GFR (MDRD) > 60 (>60) Glucose 153 H (74-106) mg/dL Calcium 8.6 (8.5-10.1) mg/dL Blood Type B NEGATIVE Gel Antibody Screen Negative Result Diagrams: 04/18/21 05:30 04/18/21 05:30 Kirk Results Last 24 hrs: Microbiology 04/15/21 16:48 Aerobic Blood Culture - Preliminary Blood - Arm, Right NO GROWTH AFTER 3 DAYS Anaerobic Blood Culture - Preliminary NO GROWTH AFTER 3 DAYS 04/15/21 16:40 Aerobic Blood Culture - Preliminary Blood - Arm, Right NO GROWTH AFTER 3 DAYS Anaerobic Blood Culture - Preliminary NO GROWTH AFTER 3 DAYS 04/18/21 16:16 Gram Stain - Final Knee, Right Sepsis Event Note - Evaluation Sepsis Screening Result: No Definite Risk - Focused Exam Vital Signs: Vital Signs Temp Pulse Resp BP Pulse Ox 04/18/21 15:00 97.4 F 83 16 140/87 96 04/18/21 11:36 100 F 105 H 18 140/81 94 L 04/18/21 08:11 97 F 83 16 130/74 96 - Problem List & Annotations (1) Septic arthritis SNOMED Code(s): 631075109 Code(s): M00.9 - PYOGENIC ARTHRITIS, UNSPECIFIED Status: Acute Current Visit: Yes (2) Anticoagulant long-term use SNOMED Code(s): 806381368 Code(s): Z79.01 - TAILER IN (CURRENT) USE OF ANTICOAGULANTS Status: Acute Current Visit: Yes - Problem List Review Problem List Initiated/Reviewed/Updated: Yes - Plan Plan:: ASSESSMENT AND PLAN SEPTIC ARTHRITIS RIGHT KNEE-status post total knee arthroplasty done 2 years ago. -Blood cultures are negative -Joint cultures show a beta-hemolytic strep that is not group a or B -He does not endorse ever eating raw or undercooked fish at any time in the recent past -Consult Dr. Castro-he had left for surgery around 1330 or 1400 today -Will allow him to eat tonight for dinner if he is feeling up to it or will start food in the morning -IV vancomycin and ceftriaxone will continue until final culture results RECENT DVT-complicating back surgery done earlier this spring. On long-term oral anticoagulation with Xarelto. -Hold Xarelto for possible surgery by Dr. Castro \ -He does have calf pain today which is concerning I would like to keep him until we can restart his anticoagulation in a safe manner, will speak with Dr. Pro lafleur about his recommendations for restarting Xarelto Hyponatremia -We will recheck in the morning and add fluids if needed MAINTENANCE ISSUES -DVT prophylaxis: Not able to anticoagulate due to possible surgery, SCDs not indicated as possible septic joint on right lower extremity -GI prophylaxis; not indicated -Luther catheter; not indicated -Nutrition; regular diet -Nicotine dependence; not required CODE STATUS-FULL CODE Disposition: Plan to restart on blood thinners as soon as possible will talk to Dr. Castro regarding when is the best time to restart these. Ele Ngo,
[2021-04-18] MEDS ORDERED: Ketorolac 30 MG/ML SDV IVPUSH PRN ×2 (18:36→20:31)
[2021-04-18] MEDS: cefTRIAXone 2 GM in Sodium Chloride 0.9% 50 ML IV SCH (20:12)
[2021-04-18] MEDS: Docusate Sodium 100 MG Cap PO SCH (21:44)
[2021-04-19] MEDS: oxyCODONE 5 MG Tab PO PRN ×5 (00:38→22:40)
[2021-04-19] MEDS: Sodium Chloride 0.9% 1,000 ML IV SCH (03:37)
--- NOTE | 2021-04-19 08:51 | PCM.SURGPN ---
- General Info Date of Service: 04/19/21 Date of Surgery/Procedure: 04/18/21 POD#: 1 Post-Op Diagnosis: right total knee infection, s/p single stage right knee revision Functional Status: Reports: Tolerating Diet - Review of Systems General: Reports: Fever, Malaise Pulmonary: Reports: No Symptoms Cardiovascular: Reports: No Symptoms Gastrointestinal: Reports: No Symptoms Genitourinary: Reports: No Symptoms Musculoskeletal: Reports: Back Pain, Leg Pain (right ), Joint Pain (right knee ), Joint Swelling (right knee ) Skin: Reports: Rash (r calf ) Neurological: Reports: No Symptoms Psychiatric: Reports: No Symptoms - Patient Data Vitals - Most Recent: Last Vital Signs Temp 99.1 F 04/19/21 07:00 Pulse 96 04/19/21 07:00 Resp 16 04/19/21 07:00 BP 141/94 H 04/19/21 07:00 Pulse Ox 94 L 04/19/21 07:00 Weight - Most Recent: 177 lb I&O - Last 24 Hours: Intake & Output 04/18/21 04/19/21 04/19/21 22:59 06:59 14:59 Intake Total 300 3219 Output Total 735 1135 Balance -435 2084 Lab Results Last 24 Hrs: Laboratory Results - last 24 hr 04/18/21 04/19/21 04/19/21 Range/Units 18:55 05:03 05:03 WBC 10.3 (4.5-11.0) K/uL RBC 3.64 L (4.30-5.90) M/uL Hgb 10.4 L (12.0-15.0) g/dL Hct 31.5 L (40.0-54.0) % MCV 87 (80-98) fL MCH 29 (27-31) pg MCHC 33 (32-36) % Plt Count 234 (150-400) K/uL Sodium 138 L (140-148) mmol/L Potassium 3.6 (3.6-5.2) mmol/L Chloride 103 (100-108) mmol/L Carbon Dioxide 25 (21-32) mmol/L Anion Gap 13.6 (5.0-14.0) mmol/L BUN 12 (7-18) mg/dL Creatinine 0.9 (0.8-1.3) mg/dL Est Cr Clr Drug Dosing 76.00 mL/min Estimated GFR (MDRD) > 60 (>60) Glucose 246 H (74-106) mg/dL Calcium 8.2 L (8.5-10.1) mg/dL Phosphorus 2.7 (2.5-4.9) mg/dL Magnesium 1.9 (1.8-2.4) mg/dL Kirk Results Last 24 Hrs: Microbiology 04/15/21 16:48 Aerobic Blood Culture - Preliminary Blood - Arm, Right NO GROWTH AFTER 3 DAYS Anaerobic Blood Culture - Preliminary NO GROWTH AFTER 3 DAYS 04/15/21 16:40 Aerobic Blood Culture - Preliminary Blood - Arm, Right NO GROWTH AFTER 3 DAYS Anaerobic Blood Culture - Preliminary NO GROWTH AFTER 3 DAYS 04/18/21 16:16 Gram Stain - Final Knee, Right Med Orders - Current: Current Medications Acetaminophen (Acetaminophen 325 Mg Tab) 650 mg PO Q4H PRN PRN Reason: Pain (Mild 1-3)/fever Last Admin: 04/18/21 11:24 Dose: 650 mg Documented by: Hydrocodone Bitart/Acetaminophen (Acetaminophen/Hydrocodone 325-5 Mg Tab) 1 tab PO Q4H PRN PRN Reason: Pain (mild 1-3) Docusate Sodium (Docusate Sodium 100 Mg Cap) 100 mg PO Q12H [facility] Last Admin: 04/18/21 21:44 Dose: 100 mg Documented by: Sodium Chloride (Normal Saline) 1,000 mls @ 125 mls/hr IV ASDIRECTED [facility] Last Admin: 04/19/21 03:37 Dose: 125 mls/hr Documented by: Ceftriaxone Sodium 2 gm/ (Sodium Chloride) 50 mls @ 100 mls/hr IV Q24H [facility] Last Admin: 04/18/21 20:12 Dose: 100 mls/hr Documented by: Vancomycin HCl 1.25 gm/ Sodium (Chloride) 250 mls @ 165 mls/hr IV Q8H [facility] Last Admin: 04/19/21 05:51 Dose: 165 mls/hr Documented by: Ketorolac Tromethamine (Ketorolac 30 Mg/Ml Sdv) 15 mg IVPUSH Q8H PRN PRN Reason: Pain Last Admin: 04/19/21 00:38 Dose: 15 mg Documented by: Lactobacillus Rhamnosus (Lactobacillus Rhamnosus Gg (Probiotic) Cap) 1 cap PO BID [facility] Last Admin: 04/18/21 21:44 Dose: 1 cap Documented by: Morphine Sulfate (Morphine 2 Mg/Ml Syringe) 1 mg IVPUSH Q1H PRN PRN Reason: Breakthrough Pain Ondansetron HCl (Ondansetron 4 Mg/2 Ml Sdv) 4 mg IV Q4H PRN PRN Reason: Nausea/Vomiting Oxycodone HCl (Oxycodone 5 Mg Tab) 5 mg PO Q4H PRN PRN Reason: Pain (moderate 4-6) Last Admin: 04/18/21 06:10 Dose: 5 mg Documented by: Oxycodone HCl (Oxycodone 5 Mg Tab) 10 mg PO Q4H PRN PRN Reason: Pain (severe 7-10) Last Admin: 04/19/21 08:28 Dose: 10 mg Documented by: Pantoprazole Sodium (Pantoprazole 40 Mg Tab.Cr) 40 mg PO ACBREAKFAST ELISSA Last Admin: 04/18/21 08:15 Dose: 40 mg Documented by: Polyethylene Glycol (Polyethylene Glycol 3350 Powder 17 Gm Packet) 17 gm PO DAILY PRN PRN Reason: Constipation Propranolol HCl (Propranolol 40 Mg Tab) 20 mg PO BID PRN PRN Reason: Other Last Admin: 04/17/21 12:40 Dose: 20 mg Documented by: Rivaroxaban (Rivaroxaban 10 Mg Tab) 20 mg PO DAILY ELISSA Sodium Chloride (Sodium Chloride 0.9% 10 Ml Syringe) 10 ml FLUSH ASDIRECTED PRN PRN Reason: Keep Vein Open Discontinued Medications Acetaminophen (Acetaminophen 325 Mg Tab) 325 mg PO NOW ONE Stop: 04/15/21 18:29 Last Admin: 04/15/21 18:37 Dose: 325 mg Documented by: Acetaminophen (Acetaminophen 325 Mg Tab) 325 mg PO NOW ONE Stop: 04/15/21 18:30 Last Admin: 04/15/21 18:49 Dose: 325 mg Documented by: Dexamethasone (Dexamethasone 4 Mg/Ml Sdv) Confirm Administered Dose 4 mg .ROUTE .STK-MED ONE Stop: 04/18/21 14:20 Fentanyl (Fentanyl 100 Mcg/2 Ml Sdv) 50 mcg IVPUSH ONETIME ONE Stop: 04/15/21 16:34 Last Admin: 04/15/21 16:51 Dose: 50 mcg Documented by: Fentanyl (Fentanyl 100 Mcg/2 Ml Sdv) 50 mcg IVPUSH ONETIME ONE Stop: 04/15/21 18:29 Last Admin: 04/15/21 18:44 Dose: 50 mcg Documented by: Fentanyl (Fentanyl 250 Mcg/5 Ml Sdv) Confirm Administered Dose 250 mcg .ROUTE .STK-MED ONE Stop: 04/18/21 14:20 Fentanyl (Fentanyl 250 Mcg/5 Ml Sdv) Confirm Administered Dose 250 mcg .ROUTE .STK-MED ONE Stop: 04/18/21 16:22 Fentanyl (Fentanyl 250 Mcg/5 Ml Sdv) Confirm Administered Dose 250 mcg .ROUTE .STK-MED ONE Stop: 04/18/21 17:59 Glycopyrrolate (Glycopyrrolate 0.2 Mg/Ml 5 Ml Mdv) Confirm Administered Dose 1 mg .ROUTE .STK-MED ONE Stop: 04/18/21 14:20 Sodium Chloride (Normal Saline) 1,750 mls @ 1,000 mls/hr IV .Bolus [facility] Last Admin: 04/15/21 16:51 Dose: 1,000 mls/hr Documented by: Ceftriaxone Sodium 2 gm/ (Sodium Chloride) 50 mls @ 100 mls/hr IV ONETIME ONE Stop: 04/15/21 17:09 Last Admin: 04/15/21 17:08 Dose: 100 mls/hr Documented by: Ceftriaxone Sodium 2 gm/ (Sodium Chloride) 50 mls @ 100 mls/hr IV Q24H [facility]IS[facility] Vancomycin HCl 1.25 gm/ Sodium (Chloride) 250 mls @ 166.667 mls/hr IV Q12H [facility] Stop: 04/17/21 10:00 Last Admin: 04/17/21 07:00 Dose: 166.667 mls/hr Documented by: Lactated Ringer's (Ringers, Lactated) Confirm Administered Dose 1,000 mls @ as directed .ROUTE .STK-MED ONE Stop: 04/18/21 16:02 Ketorolac Tromethamine (Ketorolac 30 Mg/Ml Sdv) 30 mg IVPUSH Q8H PRN PRN Reason: Breakthrough Pain Lidocaine HCl (Lidocaine 1% 5 Ml Sdv) 5 ml INJECT ONETIME ONE Stop: 04/15/21 17:28 Last Admin: 04/15/21 17:36 Dose: 5 ml Documented by: Metoclopramide HCl (Metoclopramide 10 Mg/2 Ml Sdv) 5 mg IV ONETIME ONE Stop: 04/15/21 18:31 Last Admin: 04/15/21 18:38 Dose: 5 mg Documented by: Neostigmine Methylsulfate (Neostigmine Methylsulfate 1 Mg/Ml 5 Ml Syringe) Confirm Administered Dose 5 mg .ROUTE .STK-MED ONE Stop: 04/18/21 14:20 Ondansetron HCl (Ondansetron 4 Mg/2 Ml Sdv) Confirm Administered Dose 4 mg .ROUTE .STK-MED ONE Stop: 04/18/21 14:20 Oxycodone HCl (Oxycodone 5 Mg Tab) 5 mg PO Q4H PRN PRN Reason: Pain (moderate 4-6) Last Admin: 04/16/21 13:14 Dose: 5 mg Documented by: Pantoprazole Sodium (Pantoprazole 40 Mg Tab.Cr) 40 mg PO DAILY [facility] Povidone Iodine (Povidone-Iodine 10% Soln 118.25 Ml Bottle) Confirm Administered Dose 1 ml .ROUTE .STK-MED ONE Stop: 04/18/21 07:22 Last Admin: 04/18/21 16:31 Dose: 1 ml Documented by: Propofol (Propofol 200 Mg/20 Ml Sdv) Confirm Administered Dose 200 mg .ROUTE .STK-MED ONE Stop: 04/18/21 14:20 Rocuronium [place] (Rocuronium 50 Mg/5 Ml Vial) Confirm Administered Dose 50 mg .ROUTE .STK-MED ONE Stop: 04/18/21 14:20 Sodium Chloride (Sodium Chloride 0.9% 10 Ml Syringe) 10 ml FLUSH ASDIRECTED PRN PRN Reason: Keep Vein Open Last Admin: 04/15/21 16:53 Dose: 10 ml Documented by: Succinylcholine Chloride (Succinylcholine 200 Mg/10 Ml Mdv) Confirm Administered Dose 200 mg .ROUTE .STK-MED ONE Stop: 04/18/21 14:20 Vancomycin HCl (Vancomycin 1 Gm Sdv) 1 gm IV .PHARMACY TO DOSE [facility] Stop: 04/16/21 07:30 Vancomycin HCl (Vancomycin 1 Gm Sdv) Confirm Administered Dose 2 gm .ROUTE .STK- MED ONE Stop: 04/18/21 07:21 Last Admin: 04/18/21 16:30 Dose: 2 gm Documented by: - Exam Wound/Incisions: Dressing Dry and Intact, No Drainage (on dressing ), Drainage (drainage in TASHA drain ) General: Alert, Oriented Extremities: Joint Swelling, Leg Pain (right ), Limited Range of Motion Skin: Dry, Intact Neurological: No New Focal Deficit Psy/Mental Status: Alert, Normal Affect, Normal Mood Sepsis Event Note - Evaluation Sepsis Screening Result: No Definite Risk - Focused Exam Vital Signs: Vital Signs Temp Pulse Resp BP Pulse Ox 04/19/21 07:00 99.1 F 96 16 141/94 H 94 L 04/19/21 03:00 97.5 F 95 18 136/81 95 04/18/21 22:50 98.2 F 103 H 16 154/90 H 91 L 04/18/21 21:50 98.2 F 101 H 18 135/88 92 L 04/18/21 21:20 97.8 F 99 18 130/91 H 93 L 04/18/21 20:50 100 18 136/80 92 L - Problem List & Annotations (1) Painful total knee replacement, right SNOMED Code(s): 663725508 Code(s): T84.84XA - PAIN DUE TO INTERNAL ORTHOPEDIC PROSTH DEV/GRFT, INIT; Z96.651 - PRESENCE OF RIGHT ARTIFICIAL KNEE JOINT Status: Acute Current Visit: Yes Qualifiers: Encounter type: initial encounter Qualified Code(s): T84.84XA - Pain due to internal orthopedic prosthetic devices, implants and grafts, initial encounter; Z96.651 - Presence of right artificial knee joint (2) Status post revision of total replacement of right knee SNOMED Code(s): 227758265779631, 43412764, [id number] Code(s): Z96.651 - PRESENCE OF RIGHT ARTIFICIAL KNEE JOINT Status: Acute Current Visit: Yes - Problem List Review Problem List Initiated/Reviewed/Updated: Yes - My Orders Last 24 Hours: Active Orders 24 hr Category Date Time Status Consult to Physical Therapy [PT Evaluation and Cons 04/18/21 18:38 Active Treatment] [CONS] Routine Regular Diet [DIET] Diet 04/18/21 Dinner Active Knee 1V or 2V Rt [CR] Routine Exams 04/18/21 18:08 Taken CULTURE ANAEROBIC [RM] Routine Lab 04/18/21 16:16 Results CULTURE WOUND + SMEAR [RM] Routine Lab 04/18/21 16:16 Results Acetaminophen/HYDROcodone [[place]ould 325-5 MG] Med 04/18/21 18:35 Active 1 tab PO Q4H PRN Docusate Sodium [Colace] Med 04/18/21 20:00 Active 100 mg PO Q12H Ketorolac [Toradol] Med 04/18/21 20:31 Active 15 mg IVPUSH Q8H PRN Morphine Med 04/18/21 18:35 Active 1 mg IVPUSH Q1H PRN Rivaroxaban [Xarelto] Med 04/19/21 09:00 Active 20 mg PO DAILY Weight bearing status [OM.PC] Routine Oth 04/19/21 08:33 Ordered Medication Orders Acetaminophen (Acetaminophen 325 Mg Tab) 650 mg PO Q4H PRN PRN Reason: Pain (Mild 1-3)/fever Last Admin: 04/18/21 11:24 Dose: 650 mg Documented by: Admin: 04/18/21 06:10 Dose: 650 mg Documented by: Admin: 04/18/21 01:42 Dose: 650 mg Documented by: Admin: 04/17/21 20:34 Dose: 650 mg Documented by: Admin: 04/17/21 16:00 Dose: 650 mg Documented by: Admin: 04/17/21 12:16 Dose: 650 mg Documented by: Admin: 04/17/21 07:56 Dose: 650 mg Documented by: Admin: 04/17/21 03:31 Dose: 650 mg Documented by: Admin: 04/16/21 22:54 Dose: 650 mg Documented by: Admin: 04/16/21 17:56 Dose: 650 mg Documented by: Admin: 04/16/21 13:14 Dose: 650 mg Documented by: Admin: 04/16/21 08:41 Dose: 650 mg Documented by: Admin: 04/16/21 04:03 Dose: 650 mg Documented by: Admin: 04/15/21 23:56 Dose: 650 mg Documented by: KALLI Hydrocodone Bitart/Acetaminophen (Acetaminophen/Hydrocodone 325-5 Mg Tab) 1 tab PO Q4H PRN PRN Reason: Pain (mild 1-3) Docusate Sodium (Docusate Sodium 100 Mg Cap) 100 mg PO Q12H [facility] Last Admin: 04/18/21 21:44 Dose: 100 mg Documented by: PEREZ Sodium Chloride (Normal Saline) 1,000 mls @ 125 mls/hr IV ASDIRECTED [facility] Last Admin: 04/19/21 03:37 Dose: 125 mls/hr Documented by: Infusion: 04/18/21 19:56 Dose: 125 mls/hr Documented by: Admin: 04/18/21 11:56 Dose: 125 mls/hr Documented by: Infusion: 04/17/21 11:27 Dose: 125 mls/hr Documented by: Admin: 04/17/21 03:27 Dose: 125 mls/hr Documented by: Infusion: 04/17/21 00:26 Dose: 125 mls/hr Documented by: Admin: 04/16/21 16:26 Dose: 125 mls/hr Documented by: Infusion: 04/16/21 16:26 Dose: 125 mls/hr Documented by: Admin: 04/16/21 08:32 Dose: 125 mls/hr Documented by: Infusion: 04/16/21 04:28 Dose: 125 mls/hr Documented by: Admin: 04/15/21 20:28 Dose: 125 mls/hr Documented by: KALLI Ceftriaxone Sodium 2 gm/ (Sodium Chloride) 50 mls @ 100 mls/hr IV Q24H [facility] Last Admin: 04/18/21 20:12 Dose: 100 mls/hr Documented by: Admin: 04/17/21 16:10 Dose: 100 mls/hr Documented by: Admin: 04/16/21 16:27 Dose: 100 mls/hr Documented by: MICHELLE Vancomycin HCl 1.25 gm/ Sodium (Chloride) 250 mls @ 165 mls/hr IV Q8H [facility] Last Admin: 04/19/21 05:51 Dose: 165 mls/hr Documented by: Admin: 04/18/21 21:47 Dose: 165 mls/hr Documented by: Admin: 04/18/21 13:10 Dose: 165 mls/hr Documented by: Admin: 04/18/21 06:11 Dose: 165 mls/hr Documented by: Admin: 04/17/21 21:54 Dose: 165 mls/hr Documented by: Admin: 04/17/21 14:24 Dose: 165 mls/hr Documented by: NASRA Ketorolac Tromethamine (Ketorolac 30 Mg/Ml Sdv) 15 mg IVPUSH Q8H PRN PRN Reason: Pain Last Admin: 04/19/21 00:38 Dose: 15 mg Documented by: PEREZ Lactobacillus Rhamnosus (Lactobacillus Rhamnosus Gg (Probiotic) Cap) 1 cap PO BID [facility]IS[facility] Last Admin: 04/18/21 21:44 Dose: 1 cap Documented by: Admin: 04/18/21 08:15 Dose: 1 cap Documented by: Admin: 04/17/21 20:35 Dose: 1 cap Documented by: PEREZ Morphine Sulfate (Morphine 2 Mg/Ml Syringe) 1 mg IVPUSH Q1H PRN PRN Reason: Breakthrough Pain Ondansetron HCl (Ondansetron 4 Mg/2 Ml Sdv) 4 mg IV Q4H PRN PRN Reason: Nausea/Vomiting Oxycodone HCl (Oxycodone 5 Mg Tab) 5 mg PO Q4H PRN PRN Reason: Pain (moderate 4-6) Last Admin: 04/18/21 06:10 Dose: 5 mg Documented by: CARO Oxycodone HCl (Oxycodone 5 Mg Tab) 10 mg PO Q4H PRN PRN Reason: Pain (severe 7-10) Last Admin: 04/19/21 08:28 Dose: 10 mg Documented by: Admin: 04/19/21 00:38 Dose: 10 mg Documented by: Admin: 04/18/21 20:28 Dose: 10 mg Documented by: Admin: 04/18/21 11:23 Dose: 10 mg Documented by: Admin: 04/18/21 01:43 Dose: 10 mg Documented by: Admin: 04/17/21 20:34 Dose: 10 mg Documented by: Admin: 04/17/21 16:01 Dose: 10 mg Documented by: Admin: 04/17/21 12:17 Dose: 10 mg Documented by: Admin: 04/17/21 07:57 Dose: 10 mg Documented by: Admin: 04/17/21 03:31 Dose: 10 mg Documented by: Admin: 04/16/21 22:55 Dose: 10 mg Documented by: Admin: 04/16/21 17:56 Dose: 10 mg Documented by: MICHELLE Pantoprazole Sodium (Pantoprazole 40 Mg Tab.Cr) 40 mg PO ACBREAKFAST ELISSA Last Admin: 04/18/21 08:15 Dose: 40 mg Documented by: Admin: 04/17/21 08:00 Dose: 40 mg Documented by: Admin: 04/16/21 10:22 Dose: Not Given Documented by: MICHELLE Polyethylene Glycol (Polyethylene Glycol 3350 Powder 17 Gm Packet) 17 gm PO DAILY PRN PRN Reason: Constipation Propranolol HCl (Propranolol 40 Mg Tab) 20 mg PO BID PRN PRN Reason: Other Last Admin: 04/17/21 12:40 Dose: 20 mg Documented by: NASRA Rivaroxaban (Rivaroxaban 10 Mg Tab) 20 mg PO DAILY [facility] Sodium Chloride (Sodium Chloride 0.9% 10 Ml Syringe) 10 ml FLUSH ASDIRECTED PRN PRN Reason: Keep Vein Open - Assessment Assessment (Free Text/Narrative):: Patient is a pleasant 70-year-old male, status post right single-stage total knee revision, postop day #1. No acute events overnight. Patient remains hemodynamically stable. Systolic pressures have been running in the high 90s. Patient endorsed feeling febrile this morning, denied chills, chest pain, dyspnea. Last temperature: 99.1F. Reports ambulating to the bathroom this morning and was able to put more weight on right knee than he did prior to the surgery. While pain is still present, patient notes it is a different kind of pain that is more tolerable than the pressure-pain he had before surgery. Denied numbness or tingling to the R LE. Reports pain has been fairly well controlled after surgery. Patient has been tolerating regular diet well. No nausea/emesis. POD#1 HgB within normal limits. Continues to require inpatient status at this time for pain control, physical therapy services, and for PICC line insertion. Exam: Right lower extremity neurovascular intact. TASHA drain with minimal drainage. Dressing on right lower extremity is dry and intact. Moderate swelling of right knee. No significant pedal edema. Unable to assess temperature of R knee with KEVIN wrap on. Calf feels soft and supple, negative Homans. Plantar flexion: 5/5. Dorsiflexion: 5/5. Plan: * Patient to participate in physical therapy today; may weight-bear as tolerated on right lower extremity * Continue with current antibiotic regimen; looking into a different antibiotic for discharge with coverage of Beta Strep, non group A or B. Will need a PICC line upon discharge; order placed for insertion today. * Awaiting joint culture results taken in surgery * Resumed patient's home Xarelto dose for DVT/VTE prophylaxis * Continue with current pain regimen
--- NOTE | 2021-04-19 09:11 | CR ---
Knee 1V or 2V Rt CLINICAL HISTORY: Right knee arthroplasty revision FINDINGS: Patient has had revision of total knee arthroplasty with long intramedullary posts. There is a small ossific density just lateral to the lateral tibial plateau is not definitively seen on the lateral image. There is a surgical drain in place in the suprapatellar bursa Impression: Status post recent revision of total knee arthroplasty
[2021-04-19] MEDS: Lactobacillus Rhamnosus GG (Probiotic) Cap PO SCH ×2 (09:16→20:04)
[2021-04-19] MEDS: Pantoprazole 40 MG Tab.CR PO SCH (09:16)
[2021-04-19] MEDS: Rivaroxaban 10 MG Tab PO SCH (09:16)
[2021-04-19] MEDS: Docusate Sodium 100 MG Cap PO SCH ×2 (09:16→20:03)
[2021-04-19] MEDS: cefTRIAXone 2 GM in Sodium Chloride 0.9% 50 ML IV SCH (17:54)
--- NOTE | 2021-04-19 19:28 | PCM.PN ---
- General Info Date of Service: 04/19/21 Admission Dx/Problem (Free Text): Admission Diagnosis/Problem Admission Diagnosis/Problem Septic arthritis Subjective Update: had his surgery yesterday, postop day 1. Today he is feeling good he was able to ambulate. He states that his pain is actually worse than prior to surgery. He is still having a little bit of calf pain but not as much as prior to surgery. He has been restarted on his anticoagulation per surgery. He is experiencing no symptoms right now. The cabin that they rented for this trip stay ends tomorrow so his will be packing up their boats with their sons and going back home. And he may have to stay due to antibiotic issues and getting home health care then she will come back. As of now we are waiting for the cultures to grow to have antibiotic sensitivities, he is fine with staying until we know which medication he needs to be on. Functional Status: Reports: Pain Controlled, Tolerating Diet, Ambulating, Urinating. Denies: New Symptoms - Review of Systems General: Reports: No Symptoms, Appetite. Denies: Fever, Chills HEENT: Reports: No Symptoms. Denies: Headaches, Sinus Congestion, Visual Changes Pulmonary: Reports: No Symptoms. Denies: Shortness of Breath, Cough Cardiovascular: Reports: No Symptoms. Denies: Chest Pain, Palpitations Gastrointestinal: Reports: No Symptoms, Hematochezia. Denies: Abdominal Pain, Constipation, Decreased Appetite Genitourinary: Reports: No Symptoms, Other (Has the Luther catheter) Musculoskeletal: Reports: Joint Pain Skin: Reports: No Symptoms Neurological: Reports: No Symptoms. Denies: Confusion, Dizziness, Headache Psychiatric: Reports: No Symptoms. Denies: Confusion, Depression - Patient Data Vitals - Most Recent: Last Vital Signs Temp 98 F 04/19/21 15:00 Pulse 97 04/19/21 15:00 Resp 16 04/19/21 15:00 BP 113/78 04/19/21 15:00 Pulse Ox 96 04/19/21 15:00 Weight - Most Recent: 187 lb 2.759 oz I&O - Last 24 Hours: Intake & Output 04/19/21 04/19/21 04/19/21 06:59 14:59 22:59 Intake Total 3219 1000 Output Total 1135 485 400 Balance 2084 -485 600 Lab Results Last 24 Hours: Laboratory Results - last 24 hr 04/18/21 04/19/21 04/19/21 Range/Units 18:55 05:03 05:03 WBC 10.3 (4.5-11.0) K/uL RBC 3.64 L (4.30-5.90) M/uL Hgb 10.4 L (12.0-15.0) g/dL Hct 31.5 L (40.0-54.0) % MCV 87 (80-98) fL MCH 29 (27-31) pg MCHC 33 (32-36) % Plt Count 234 (150-400) K/uL Sodium 138 L (140-148) mmol/L Potassium 3.6 (3.6-5.2) mmol/L Chloride 103 (100-108) mmol/L Carbon Dioxide 25 (21-32) mmol/L Anion Gap 13.6 (5.0-14.0) mmol/L BUN 12 (7-18) mg/dL Creatinine 0.9 (0.8-1.3) mg/dL Est Cr Clr Drug Dosing 76.00 mL/min Estimated GFR (MDRD) > 60 (>60) Glucose 246 H (74-106) mg/dL Calcium 8.2 L (8.5-10.1) mg/dL Phosphorus 2.7 (2.5-4.9) mg/dL Magnesium 1.9 (1.8-2.4) mg/dL Vancomycin Trough (10.0-20.0) ug/mL 04/19/21 Range/Units 13:29 WBC (4.5-11.0) K/uL RBC (4.30-5.90) M/uL Hgb (12.0-15.0) g/dL Hct (40.0-54.0) % MCV (80-98) fL MCH (27-31) pg MCHC (32-36) % Plt Count (150-400) K/uL Sodium (140-148) mmol/L Potassium (3.6-5.2) mmol/L Chloride (100-108) mmol/L Carbon Dioxide (21-32) mmol/L Anion Gap (5.0-14.0) mmol/L BUN (7-18) mg/dL Creatinine (0.8-1.3) mg/dL Est Cr Clr Drug Dosing mL/min Estimated GFR (MDRD) (>60) Glucose (74-106) mg/dL Calcium (8.5-10.1) mg/dL Phosphorus (2.5-4.9) mg/dL Magnesium (1.8-2.4) mg/dL Vancomycin Trough 11.8 (10.0-20.0) ug/mL Kirk Results Last 24 Hours: Microbiology 04/15/21 16:48 Aerobic Blood Culture - Preliminary Blood - Arm, Right NO GROWTH AFTER 4 DAYS Anaerobic Blood Culture - Preliminary NO GROWTH AFTER 4 DAYS 04/15/21 16:40 Aerobic Blood Culture - Preliminary Blood - Arm, Right NO GROWTH AFTER 4 DAYS Anaerobic Blood Culture - Preliminary NO GROWTH AFTER 4 DAYS 04/18/21 16:16 Gram Stain - Final Knee, Right Wound Culture - Preliminary Anaerobic Culture - Preliminary NO GROWTH AFTER 1 DAY Med Orders - Current: Current Medications Acetaminophen (Acetaminophen 325 Mg Tab) 650 mg PO Q4H PRN PRN Reason: Pain (Mild 1-3)/fever Last Admin: 04/18/21 11:24 Dose: 650 mg Documented by: Hydrocodone Bitart/Acetaminophen (Acetaminophen/Hydrocodone 325-5 Mg Tab) 1 tab PO Q4H PRN PRN Reason: Pain (mild 1-3) Docusate Sodium (Docusate Sodium 100 Mg Cap) 100 mg PO Q12H PENDING SALE TO [facility] Last Admin: 04/19/21 09:16 Dose: 100 mg Documented by: Sodium Chloride (Normal Saline) 1,000 mls @ 125 mls/hr IV ASDIRECTED PENDING SALE TO [facility] Last Admin: 04/19/21 03:37 Dose: 125 mls/hr Documented by: Ceftriaxone Sodium 2 gm/ (Sodium Chloride) 50 mls @ 100 mls/hr IV Q24H PENDING SALE TO [facility] Last Admin: 04/19/21 17:54 Dose: 100 mls/hr Documented by: Ketorolac Tromethamine (Ketorolac 30 Mg/Ml Sdv) 15 mg IVPUSH Q8H PRN PRN Reason: Pain Stop: 04/24/21 20:32 Last Admin: 04/19/21 00:38 Dose: 15 mg Documented by: Lactobacillus Rhamnosus (Lactobacillus Rhamnosus Gg (Probiotic) Cap) 1 cap PO BID PENDING SALE TO [facility] Last Admin: 04/19/21 09:16 Dose: 1 cap Documented by: Morphine Sulfate (Morphine 2 Mg/Ml Syringe) 1 mg IVPUSH Q1H PRN PRN Reason: Breakthrough Pain Ondansetron HCl (Ondansetron 4 Mg/2 Ml Sdv) 4 mg IV Q4H PRN PRN Reason: Nausea/Vomiting Oxycodone HCl (Oxycodone 5 Mg Tab) 5 mg PO Q4H PRN PRN Reason: Pain (moderate 4-6) Last Admin: 04/18/21 06:10 Dose: 5 mg Documented by: Oxycodone HCl (Oxycodone 5 Mg Tab) 10 mg PO Q4H PRN PRN Reason: Pain (severe 7-10) Last Admin: 04/19/21 17:53 Dose: 10 mg Documented by: Pantoprazole Sodium (Pantoprazole 40 Mg Tab.Cr) 40 mg PO ACBREAKFAST PENDING SALE TO [facility] Last Admin: 04/19/21 09:16 Dose: 40 mg Documented by: Polyethylene Glycol (Polyethylene Glycol 3350 Powder 17 Gm Packet) 17 gm PO DAILY PRN PRN Reason: Constipation Propranolol HCl (Propranolol 40 Mg Tab) 20 mg PO BID PRN PRN Reason: Other Last Admin: 04/17/21 12:40 Dose: 20 mg Documented by: Rivaroxaban (Rivaroxaban 10 Mg Tab) 20 mg PO DAILY PENDING SALE TO [facility] Last Admin: 04/19/21 09:16 Dose: 20 mg Documented by: Sodium Chloride (Sodium Chloride 0.9% 10 Ml Syringe) 10 ml FLUSH ASDIRECTED PRN PRN Reason: Keep Vein Open Discontinued Medications Acetaminophen (Acetaminophen 325 Mg Tab) 325 mg PO NOW ONE Stop: 04/15/21 18:29 Last Admin: 04/15/21 18:37 Dose: 325 mg Documented by: Acetaminophen (Acetaminophen 325 Mg Tab) 325 mg PO NOW ONE Stop: 04/15/21 18:30 Last Admin: 04/15/21 18:49 Dose: 325 mg Documented by: Dexamethasone (Dexamethasone 4 Mg/Ml Sdv) Confirm Administered Dose 4 mg .ROUTE .STK-MED ONE Stop: 04/18/21 14:20 Fentanyl (Fentanyl 100 Mcg/2 Ml Sdv) 50 mcg IVPUSH ONETIME ONE Stop: 04/15/21 16:34 Last Admin: 04/15/21 16:51 Dose: 50 mcg Documented by: Fentanyl (Fentanyl 100 Mcg/2 Ml Sdv) 50 mcg IVPUSH ONETIME ONE Stop: 04/15/21 18:29 Last Admin: 04/15/21 18:44 Dose: 50 mcg Documented by: Fentanyl (Fentanyl 250 Mcg/5 Ml Sdv) Confirm Administered Dose 250 mcg .ROUTE .STK-MED ONE Stop: 04/18/21 14:20 Fentanyl (Fentanyl 250 Mcg/5 Ml Sdv) Confirm Administered Dose 250 mcg .ROUTE .STK-MED ONE Stop: 04/18/21 16:22 Fentanyl (Fentanyl 250 Mcg/5 Ml Sdv) Confirm Administered Dose 250 mcg .ROUTE .STK-MED ONE Stop: 04/18/21 17:59 Glycopyrrolate (Glycopyrrolate 0.2 Mg/Ml 5 Ml Mdv) Confirm Administered Dose 1 mg .ROUTE .STK-MED ONE Stop: 04/18/21 14:20 Sodium Chloride (Normal Saline) 1,750 mls @ 1,000 mls/hr IV .Bolus PENDING SALE TO [facility] Last Admin: 04/15/21 16:51 Dose: 1,000 mls/hr Documented by: Ceftriaxone Sodium 2 gm/ (Sodium Chloride) 50 mls @ 100 mls/hr IV ONETIME ONE Stop: 04/15/21 17:09 Last Admin: 04/15/21 17:08 Dose: 100 mls/hr Documented by: Ceftriaxone Sodium 2 gm/ (Sodium Chloride) 50 mls @ 100 mls/hr IV Q24H PENDING SALE TO [facility] Vancomycin HCl 1.25 gm/ Sodium (Chloride) 250 mls @ 166.667 mls/hr IV Q12H PENDING SALE TO [facility] Stop: 04/17/21 10:00 Last Admin: 04/17/21 07:00 Dose: 166.667 mls/hr Documented by: Vancomycin HCl 1.25 gm/ Sodium (Chloride) 250 mls @ 165 mls/hr IV Q8H PENDING SALE TO [facility] Last Admin: 04/19/21 05:51 Dose: 165 mls/hr Documented by: Lactated Ringer's (Ringers, Lactated) Confirm Administered Dose 1,000 mls @ as directed .ROUTE .STK-MED ONE Stop: 04/18/21 16:02 Vancomycin HCl 1.5 gm/ Sodium (Chloride) 250 mls @ 167 mls/hr IV Q8H PENDING SALE TO [facility] Last Admin: 04/19/21 15:12 Dose: 167 mls/hr Documented by: Ketorolac Tromethamine (Ketorolac 30 Mg/Ml Sdv) 30 mg IVPUSH Q8H PRN PRN Reason: Breakthrough Pain Lidocaine HCl (Lidocaine 1% 5 Ml Sdv) 5 ml INJECT ONETIME ONE Stop: 04/15/21 17:28 Last Admin: 04/15/21 17:36 Dose: 5 ml Documented by: Metoclopramide HCl (Metoclopramide 10 Mg/2 Ml Sdv) 5 mg IV ONETIME ONE Stop: 04/15/21 18:31 Last Admin: 04/15/21 18:38 Dose: 5 mg Documented by: Neostigmine Methylsulfate (Neostigmine Methylsulfate 1 Mg/Ml 5 Ml Syringe) Confirm Administered Dose 5 mg .ROUTE .STK-MED ONE Stop: 04/18/21 14:20 Ondansetron HCl (Ondansetron 4 Mg/2 Ml Sdv) Confirm Administered Dose 4 mg .ROUTE .STK-MED ONE Stop: 04/18/21 14:20 Oxycodone HCl (Oxycodone 5 Mg Tab) 5 mg PO Q4H PRN PRN Reason: Pain (moderate 4-6) Last Admin: 04/16/21 13:14 Dose: 5 mg Documented by: Pantoprazole Sodium (Pantoprazole 40 Mg Tab.Cr) 40 mg PO DAILY ELISSA Povidone Iodine (Povidone-Iodine 10% Soln 118.25 Ml Bottle) Confirm Administered Dose 1 ml .ROUTE .STK-MED ONE Stop: 04/18/21 07:22 Last Admin: 04/18/21 16:31 Dose: 1 ml Documented by: Propofol (Propofol 200 Mg/20 Ml Sdv) Confirm Administered Dose 200 mg .ROUTE .STK-MED ONE Stop: 04/18/21 14:20 Rocuronium [place] (Rocuronium 50 Mg/5 Ml Vial) Confirm Administered Dose 50 mg .ROUTE .STK-MED ONE Stop: 04/18/21 14:20 Sodium Chloride (Sodium Chloride 0.9% 10 Ml Syringe) 10 ml FLUSH ASDIRECTED PRN PRN Reason: Keep Vein Open Last Admin: 04/15/21 16:53 Dose: 10 ml Documented by: Succinylcholine Chloride (Succinylcholine 200 Mg/10 Ml Mdv) Confirm Administered Dose 200 mg .ROUTE .STK-MED ONE Stop: 04/18/21 14:20 Vancomycin HCl (Vancomycin 1 Gm Sdv) 1 gm IV .PHARMACY TO DOSE ELISSA Stop: 04/16/21 07:30 Vancomycin HCl (Vancomycin 1 Gm Sdv) Confirm Administered Dose 2 gm .ROUTE .STK- MED ONE Stop: 04/18/21 07:21 Last Admin: 04/18/21 16:30 Dose: 2 gm Documented by: - Exam Quality Assessment: DVT Prophylaxis (On anticoagulation). No: Supplemental Oxygen, Central Line/PICC, Urine Catheter, Skin Breakdown, Restraints Urinary Catheter Total Time: 1Days 2Hours General: Alert, Oriented, Cooperative, No Acute Distress HEENT: Pupils Equal, EOMI, Mucous Membr. Moist/[place] Neck: Supple, Trachea Midline Lungs: Clear to Auscultation, Normal Respiratory Effort Cardiovascular: Regular Rate, Regular Rhythm GI/Abdominal Exam: Normal Bowel Sounds, Soft, Non-Tender, No Distention (Male) Exam: Other (Some sediment in urine in catheter tube urine is yellow sediment is whitish) Extremities: Normal Inspection, Other (Right leg is wrapped in Rick bandage, not able to evaluate) Skin: Warm, Dry, Intact Wound/Incisions: Dressing Dry and Intact Neurological: No New Focal Deficit Psy/Mental Status: Alert, Normal Affect, Normal Mood - Patient Data Lab Results Last 24 hrs: Laboratory Results - last 24 hr 04/18/21 04/19/21 04/19/21 Range/Units 18:55 05:03 05:03 WBC 10.3 (4.5-11.0) K/uL RBC 3.64 L (4.30-5.90) M/uL Hgb 10.4 L (12.0-15.0) g/dL Hct 31.5 L (40.0-54.0) % MCV 87 (80-98) fL MCH 29 (27-31) pg MCHC 33 (32-36) % Plt Count 234 (150-400) K/uL Sodium 138 L (140-148) mmol/L Potassium 3.6 (3.6-5.2) mmol/L Chloride 103 (100-108) mmol/L Carbon Dioxide 25 (21-32) mmol/L Anion Gap 13.6 (5.0-14.0) mmol/L BUN 12 (7-18) mg/dL Creatinine 0.9 (0.8-1.3) mg/dL Est Cr Clr Drug Dosing 76.00 mL/min Estimated GFR (MDRD) > 60 (>60) Glucose 246 H (74-106) mg/dL Calcium 8.2 L (8.5-10.1) mg/dL Phosphorus 2.7 (2.5-4.9) mg/dL Magnesium 1.9 (1.8-2.4) mg/dL Vancomycin Trough (10.0-20.0) ug/mL 04/19/21 Range/Units 13:29 WBC (4.5-11.0) K/uL RBC (4.30-5.90) M/uL Hgb (12.0-15.0) g/dL Hct (40.0-54.0) % MCV (80-98) fL MCH (27-31) pg MCHC (32-36) % Plt Count (150-400) K/uL Sodium (140-148) mmol/L Potassium (3.6-5.2) mmol/L Chloride (100-108) mmol/L Carbon Dioxide (21-32) mmol/L Anion Gap (5.0-14.0) mmol/L BUN (7-18) mg/dL Creatinine (0.8-1.3) mg/dL Est Cr Clr Drug Dosing mL/min Estimated GFR (MDRD) (>60) Glucose (74-106) mg/dL Calcium (8.5-10.1) mg/dL Phosphorus (2.5-4.9) mg/dL Magnesium (1.8-2.4) mg/dL Vancomycin Trough 11.8 (10.0-20.0) ug/mL Result Diagrams: 04/19/21 05:03 04/19/21 05:03 Kirk Results Last 24 hrs: Microbiology 04/15/21 16:48 Aerobic Blood Culture - Preliminary Blood - Arm, Right NO GROWTH AFTER 4 DAYS Anaerobic Blood Culture - Preliminary NO GROWTH AFTER 4 DAYS 04/15/21 16:40 Aerobic Blood Culture - Preliminary Blood - Arm, Right NO GROWTH AFTER 4 DAYS Anaerobic Blood Culture - Preliminary NO GROWTH AFTER 4 DAYS 04/18/21 16:16 Gram Stain - Final Knee, Right Wound Culture - Preliminary Anaerobic Culture - Preliminary NO GROWTH AFTER 1 DAY Sepsis Event Note - Evaluation Sepsis Screening Result: No Definite Risk - Focused Exam Vital Signs: Vital Signs Temp Pulse Resp BP Pulse Ox 04/19/21 15:00 98 F 97 16 113/78 96 04/19/21 11:00 16 - Problem List & Annotations (1) Septic arthritis SNOMED Code(s): 676961401 Code(s): M00.9 - PYOGENIC ARTHRITIS, UNSPECIFIED Status: Acute Current Visit: Yes (2) Anticoagulant long-term use SNOMED Code(s): 094375950 Code(s): Z79.01 - BPO SPECIALIST (CURRENT) USE OF ANTICOAGULANTS Status: Acute Current Visit: Yes - Problem List Review Problem List Initiated/Reviewed/Updated: Yes - Plan Plan:: ASSESSMENT AND PLAN SEPTIC ARTHRITIS RIGHT KNEE-postop day 1 total knee replacement -status post total knee arthroplasty done 2 years ago. -Blood cultures are negative -Joint cultures show a beta-hemolytic strep that is not group a or B -Awaiting culture from surgery to taper antibiotics accordingly -He does not endorse ever eating raw or undercooked fish at any time in the recent past -Consult Dr. Castro-had total knee replacement on 04/18, currently has a drain in place -IV vancomycin and ceftriaxone will continue until final culture results -PICC line will be placed in anticipation of home antibiotics Recent massive pulmonary embolism secondary to DVT Long-term anticoagulation therapy -complicating back surgery done earlier this spring. -On long-term oral anticoagulation with Xarelto. -Was restarted on Xarelto today MAINTENANCE ISSUES -DVT prophylaxis: Xarelto -GI prophylaxis; not indicated -Luther catheter; not indicated -Nutrition; regular diet -Nicotine dependence; not required CODE STATUS-FULL CODE Disposition: We will monitor for cultures from surgery and taper antibiotics accordingly. Discharge planning cannot set up outpatient management of antibiotics until the type and frequency is known. Will probably need to work with home health care if several times a day, or a facility if just once a day. PICC line will be placed today, was having issues getting this earlier in the da y. Ele Ngo,
[2021-04-20] MEDS: oxyCODONE 5 MG Tab PO PRN ×5 (03:39→22:52)
[2021-04-20] MEDS: Lactobacillus Rhamnosus GG (Probiotic) Cap PO SCH ×2 (09:34→20:08)
[2021-04-20] MEDS: Rivaroxaban 10 MG Tab PO SCH (09:34)
[2021-04-20] MEDS: Docusate Sodium 100 MG Cap PO SCH ×2 (09:35→20:08)
[2021-04-20] MEDS: Pantoprazole 40 MG Tab.CR PO SCH (09:35)
[2021-04-20] MEDS ORDERED: Potassium Chloride 20 MEQ Tab.ER PO ONE (11:30)
[2021-04-20] MEDS ORDERED: cefTRIAXone 2 GM in Sodium Chloride 0.9% 50 ML IV ONE (14:00)
--- NOTE | 2021-04-20 14:57 | PCM.SURGPN ---
- General Info Date of Service: 04/20/21 Date of Surgery/Procedure: 04/18/21 POD#: 2 Post-Op Diagnosis: Right total knee infection, status post single-stage right knee revision Functional Status: Reports: Pain Controlled, Tolerating Diet, Ambulating (With four-wheel walker), Urinating - Review of Systems General: Reports: No Symptoms HEENT: Reports: No Symptoms Pulmonary: Reports: No Symptoms Cardiovascular: Reports: No Symptoms Genitourinary: Reports: No Symptoms Musculoskeletal: Reports: Back Pain (Chronic), Leg Pain (Right), Joint Pain (Right knee), Joint Swelling (Right knee) Skin: Reports: Bruising Neurological: Reports: No Symptoms Psychiatric: Reports: No Symptoms - Patient Data Vitals - Most Recent: Last Vital Signs Temp 97.8 F 04/20/21 11:00 Pulse 97 04/20/21 11:00 Resp 18 04/20/21 11:00 BP 128/74 04/20/21 11:00 Pulse Ox 96 04/20/21 11:00 Weight - Most Recent: 187 lb 2.759 oz I&O - Last 24 Hours: Intake & Output 04/19/21 04/20/21 04/20/21 22:59 06:59 14:59 Intake Total 1360 750 160 Output Total 550 300 200 Balance 810 450 -40 Lab Results Last 24 Hrs: Laboratory Results - last 24 hr 04/20/21 04/20/21 Range/Units 04:30 04:30 WBC 9.4 (4.5-11.0) K/uL RBC 3.33 L (4.30-5.90) M/uL Hgb 9.3 L (12.0-15.0) g/dL Hct 28.8 L (40.0-54.0) % MCV 87 (80-98) fL MCH 28 (27-31) pg MCHC 32 (32-36) % Plt Count 262 (150-400) K/uL Sodium 139 L (140-148) mmol/L Potassium 3.2 L (3.6-5.2) mmol/L Chloride 103 (100-108) mmol/L Carbon Dioxide 27 (21-32) mmol/L Anion Gap 12.2 (5.0-14.0) mmol/L BUN 11 (7-18) mg/dL Creatinine 0.6 L (0.8-1.3) mg/dL Est Cr Clr Drug Dosing 114.00 mL/min Estimated GFR (MDRD) > 60 (>60) Glucose 173 H (74-106) mg/dL Calcium 8.1 L (8.5-10.1) mg/dL Kirk Results Last 24 Hrs: Microbiology 04/18/21 16:16 Gram Stain - Final Knee, Right Wound Culture - Preliminary Anaerobic Culture - Preliminary NO GROWTH AFTER 2 DAYS 04/15/21 16:48 Aerobic Blood Culture - Preliminary Blood - Arm, Right NO GROWTH AFTER 4 DAYS Anaerobic Blood Culture - Preliminary NO GROWTH AFTER 4 DAYS 04/15/21 16:40 Aerobic Blood Culture - Preliminary Blood - Arm, Right NO GROWTH AFTER 4 DAYS Anaerobic Blood Culture - Preliminary NO GROWTH AFTER 4 DAYS Med Orders - Current: Current Medications Acetaminophen (Acetaminophen 325 Mg Tab) 650 mg PO Q4H PRN PRN Reason: Pain (Mild 1-3)/fever Last Admin: 04/18/21 11:24 Dose: 650 mg Documented by: Hydrocodone Bitart/Acetaminophen (Acetaminophen/Hydrocodone 325-5 Mg Tab) 1 tab PO Q4H PRN PRN Reason: Pain (mild 1-3) Docusate Sodium (Docusate Sodium 100 Mg Cap) 100 mg PO Q12H [facility] Last Admin: 04/20/21 09:35 Dose: 100 mg Documented by: Sodium Chloride (Normal Saline) 1,000 mls @ 125 mls/hr IV ASDIRECTED [facility] Last Admin: 04/19/21 03:37 Dose: 125 mls/hr Documented by: Ceftriaxone Sodium 2 gm/ (Sodium Chloride) 50 mls @ 100 mls/hr IV Q24H [facility] Ketorolac Tromethamine (Ketorolac 30 Mg/Ml Sdv) 15 mg IVPUSH Q8H PRN PRN Reason: Pain Stop: 04/24/21 20:32 Last Admin: 04/19/21 00:38 Dose: 15 mg Documented by: Lactobacillus Rhamnosus (Lactobacillus Rhamnosus Gg (Probiotic) Cap) 1 cap PO BID [facility] Last Admin: 04/20/21 09:34 Dose: 1 cap Documented by: Morphine Sulfate (Morphine 2 Mg/Ml Syringe) 1 mg IVPUSH Q1H PRN PRN Reason: Breakthrough Pain Ondansetron HCl (Ondansetron 4 Mg/2 Ml Sdv) 4 mg IV Q4H PRN PRN Reason: Nausea/Vomiting Oxycodone HCl (Oxycodone 5 Mg Tab) 5 mg PO Q4H PRN PRN Reason: Pain (moderate 4-6) Last Admin: 04/20/21 12:50 Dose: 5 mg Documented by: Oxycodone HCl (Oxycodone 5 Mg Tab) 10 mg PO Q4H PRN PRN Reason: Pain (severe 7-10) Last Admin: 04/19/21 22:40 Dose: 10 mg Documented by: Pantoprazole Sodium (Pantoprazole 40 Mg Tab.Cr) 40 mg PO ACBREAKFAST [facility] Last Admin: 04/20/21 09:35 Dose: 40 mg Documented by: Polyethylene Glycol (Polyethylene Glycol 3350 Powder 17 Gm Packet) 17 gm PO DAILY PRN PRN Reason: Constipation Propranolol HCl (Propranolol 40 Mg Tab) 20 mg PO BID PRN PRN Reason: Other Last Admin: 04/17/21 12:40 Dose: 20 mg Documented by: Rivaroxaban (Rivaroxaban 10 Mg Tab) 20 mg PO DAILY [facility] Last Admin: 04/20/21 09:34 Dose: 20 mg Documented by: Sodium Chloride (Sodium Chloride 0.9% 10 Ml Syringe) 10 ml FLUSH ASDIRECTED PRN PRN Reason: Keep Vein Open Discontinued Medications Acetaminophen (Acetaminophen 325 Mg Tab) 325 mg PO NOW ONE Stop: 04/15/21 18:29 Last Admin: 04/15/21 18:37 Dose: 325 mg Documented by: Acetaminophen (Acetaminophen 325 Mg Tab) 325 mg PO NOW ONE Stop: 04/15/21 18:30 Last Admin: 04/15/21 18:49 Dose: 325 mg Documented by: Dexamethasone (Dexamethasone 4 Mg/Ml Sdv) Confirm Administered Dose 4 mg .ROUTE .STK-MED ONE Stop: 04/18/21 14:20 Fentanyl (Fentanyl 100 Mcg/2 Ml Sdv) 50 mcg IVPUSH ONETIME ONE Stop: 04/15/21 16:34 Last Admin: 04/15/21 16:51 Dose: 50 mcg Documented by: Fentanyl (Fentanyl 100 Mcg/2 Ml Sdv) 50 mcg IVPUSH ONETIME ONE Stop: 04/15/21 18:29 Last Admin: 04/15/21 18:44 Dose: 50 mcg Documented by: Fentanyl (Fentanyl 250 Mcg/5 Ml Sdv) Confirm Administered Dose 250 mcg .ROUTE .STK-MED ONE Stop: 04/18/21 14:20 Fentanyl (Fentanyl 250 Mcg/5 Ml Sdv) Confirm Administered Dose 250 mcg .ROUTE .STK-MED ONE Stop: 04/18/21 16:22 Fentanyl (Fentanyl 250 Mcg/5 Ml Sdv) Confirm Administered Dose 250 mcg .ROUTE .STK-MED ONE Stop: 04/18/21 17:59 Glycopyrrolate (Glycopyrrolate 0.2 Mg/Ml 5 Ml Mdv) Confirm Administered Dose 1 mg .ROUTE .STK-MED ONE Stop: 04/18/21 14:20 Sodium Chloride (Normal Saline) 1,750 mls @ 1,000 mls/hr IV .Bolus [facility] Last Admin: 04/15/21 16:51 Dose: 1,000 mls/hr Documented by: Ceftriaxone Sodium 2 gm/ (Sodium Chloride) 50 mls @ 100 mls/hr IV ONETIME ONE Stop: 04/15/21 17:09 Last Admin: 04/15/21 17:08 Dose: 100 mls/hr Documented by: Ceftriaxone Sodium 2 gm/ (Sodium Chloride) 50 mls @ 100 mls/hr IV Q24H [facility] Vancomycin HCl 1.25 gm/ Sodium (Chloride) 250 mls @ 166.667 mls/hr IV Q12H [facility] Stop: 04/17/21 10:00 Last Admin: 04/17/21 07:00 Dose: 166.667 mls/hr Documented by: Ceftriaxone Sodium 2 gm/ (Sodium Chloride) 50 mls @ 100 mls/hr IV Q24H [facility] Last Admin: 04/19/21 17:54 Dose: 100 mls/hr Documented by: Vancomycin HCl 1.25 gm/ Sodium (Chloride) 250 mls @ 165 mls/hr IV Q8H [facility] Last Admin: 04/19/21 05:51 Dose: 165 mls/hr Documented by: Lactated Ringer's (Ringers, Lactated) Confirm Administered Dose 1,000 mls @ as directed .ROUTE .STK-MED ONE Stop: 04/18/21 16:02 Vancomycin HCl 1.5 gm/ Sodium (Chloride) 250 mls @ 167 mls/hr IV Q8H [facility] Last Admin: 04/19/21 15:12 Dose: 167 mls/hr Documented by: Ceftriaxone Sodium 2 gm/ (Sodium Chloride) 50 mls @ 100 mls/hr IV ONETIME ONE Stop: 04/20/21 14:29 Ketorolac Tromethamine (Ketorolac 30 Mg/Ml Sdv) 30 mg IVPUSH Q8H PRN PRN Reason: Breakthrough Pain Lidocaine HCl (Lidocaine 1% 5 Ml Sdv) 5 ml INJECT ONETIME ONE Stop: 04/15/21 17:28 Last Admin: 04/15/21 17:36 Dose: 5 ml Documented by: Metoclopramide HCl (Metoclopramide 10 Mg/2 Ml Sdv) 5 mg IV ONETIME ONE Stop: 04/15/21 18:31 Last Admin: 04/15/21 18:38 Dose: 5 mg Documented by: Neostigmine Methylsulfate (Neostigmine Methylsulfate 1 Mg/Ml 5 Ml Syringe) Confirm Administered Dose 5 mg .ROUTE .STK-MED ONE Stop: 04/18/21 14:20 Ondansetron HCl (Ondansetron 4 Mg/2 Ml Sdv) Confirm Administered Dose 4 mg .ROUTE .STK-MED ONE Stop: 04/18/21 14:20 Oxycodone HCl (Oxycodone 5 Mg Tab) 5 mg PO Q4H PRN PRN Reason: Pain (moderate 4-6) Last Admin: 04/16/21 13:14 Dose: 5 mg Documented by: Pantoprazole Sodium (Pantoprazole 40 Mg Tab.Cr) 40 mg PO DAILY [facility]IS[facility] Potassium Chloride (Potassium Chloride 20 Meq Tab.Er) 20 meq PO ONETIME ONE Stop: 04/20/21 11:31 Last Admin: 04/20/21 12:45 Dose: 20 meq Documented by: Povidone Iodine (Povidone-Iodine 10% Soln 118.25 Ml Bottle) Confirm Administered Dose 1 ml .ROUTE .STK-MED ONE Stop: 04/18/21 07:22 Last Admin: 04/18/21 16:31 Dose: 1 ml Documented by: Propofol (Propofol 200 Mg/20 Ml Sdv) Confirm Administered Dose 200 mg .ROUTE .STK-MED ONE Stop: 04/18/21 14:20 Rocuronium [place] (Rocuronium 50 Mg/5 Ml Vial) Confirm Administered Dose 50 mg .ROUTE .STK-MED ONE Stop: 04/18/21 14:20 Sodium Chloride (Sodium Chloride 0.9% 10 Ml Syringe) 10 ml FLUSH ASDIRECTED PRN PRN Reason: Keep Vein Open Last Admin: 04/15/21 16:53 Dose: 10 ml Documented by: Succinylcholine Chloride (Succinylcholine 200 Mg/10 Ml Mdv) Confirm Administered Dose 200 mg .ROUTE .STK-MED ONE Stop: 04/18/21 14:20 Vancomycin HCl (Vancomycin 1 Gm Sdv) 1 gm IV .PHARMACY TO DOSE ELISSA Stop: 04/16/21 07:30 Vancomycin HCl (Vancomycin 1 Gm Sdv) Confirm Administered Dose 2 gm .ROUTE .STK- MED ONE Stop: 04/18/21 07:21 Last Admin: 04/18/21 16:30 Dose: 2 gm Documented by: - Exam Wound/Incisions: Healing Well, Dressing Dry and Intact, No Drainage General: Alert, Oriented, Cooperative, No Acute Distress Extremities: Normal Capillary Refill, Leg Pain (Right), Limited Range of Motion (Right knee), Increased Warmth (Mild, right knee) Skin: Dry, Intact, Ecchymosis Neurological: No New Focal Deficit Psy/Mental Status: Alert, Normal Affect, Normal Mood Sepsis Event Note - Evaluation Sepsis Screening Result: No Definite Risk - Focused Exam Vital Signs: Vital Signs Temp Pulse Resp BP Pulse Ox 04/20/21 11:00 97.8 F 97 18 128/74 96 04/20/21 07:00 98.3 F 84 18 130/86 95 04/20/21 03:00 97.7 F 82 16 126/85 93 L - Problem List & Annotations (1) Painful total knee replacement, right SNOMED Code(s): 787475428 Code(s): T84.84XA - PAIN DUE TO INTERNAL ORTHOPEDIC PROSTH DEV/GRFT, INIT; Z96.651 - PRESENCE OF RIGHT ARTIFICIAL KNEE JOINT Status: Acute Current Visit: Yes Qualifiers: Encounter type: initial encounter Qualified Code(s): T84.84XA - Pain due to internal orthopedic prosthetic devices, implants and grafts, initial encounter; Z96.651 - Presence of right artificial knee joint (2) Status post revision of total replacement of right knee SNOMED Code(s): 490594446599801, 97720734, [id number] Code(s): Z96.651 - PRESENCE OF RIGHT ARTIFICIAL KNEE JOINT Status: Acute Current Visit: Yes - Problem List Review Problem List Initiated/Reviewed/Updated: Yes - My Orders Last 24 Hours: Active Orders 24 hr Category Date Time Status cefTRIAXone [Rocephin] 2 gm Med 04/21/21 10:00 Active Sodium Chloride 0.9% [Normal Saline] 50 ml IV Q24H Medication Orders Acetaminophen (Acetaminophen 325 Mg Tab) 650 mg PO Q4H PRN PRN Reason: Pain (Mild 1-3)/fever Last Admin: 04/18/21 11:24 Dose: 650 mg Documented by: Admin: 04/18/21 06:10 Dose: 650 mg Documented by: Admin: 04/18/21 01:42 Dose: 650 mg Documented by: Admin: 04/17/21 20:34 Dose: 650 mg Documented by: Admin: 04/17/21 16:00 Dose: 650 mg Documented by: Admin: 04/17/21 12:16 Dose: 650 mg Documented by: Admin: 04/17/21 07:56 Dose: 650 mg Documented by: Admin: 04/17/21 03:31 Dose: 650 mg Documented by: Admin: 04/16/21 22:54 Dose: 650 mg Documented by: Admin: 04/16/21 17:56 Dose: 650 mg Documented by: Admin: 04/16/21 13:14 Dose: 650 mg Documented by: Admin: 04/16/21 08:41 Dose: 650 mg Documented by: Admin: 04/16/21 04:03 Dose: 650 mg Documented by: Admin: 04/15/21 23:56 Dose: 650 mg Documented by: KALLI Hydrocodone Bitart/Acetaminophen (Acetaminophen/Hydrocodone 325-5 Mg Tab) 1 tab PO Q4H PRN PRN Reason: Pain (mild 1-3) Docusate Sodium (Docusate Sodium 100 Mg Cap) 100 mg PO Q12H [facility] Last Admin: 04/20/21 09:35 Dose: 100 mg Documented by: Admin: 04/19/21 20:03 Dose: 100 mg Documented by: Admin: 04/19/21 09:16 Dose: 100 mg Documented by: Admin: 04/18/21 21:44 Dose: 100 mg Documented by: PEREZ Sodium Chloride (Normal Saline) 1,000 mls @ 125 mls/hr IV ASDIRECTED [facility] Last Admin: 04/19/21 03:37 Dose: 125 mls/hr Documented by: Infusion: 04/18/21 19:56 Dose: 125 mls/hr Documented by: Admin: 04/18/21 11:56 Dose: 125 mls/hr Documented by: Infusion: 04/17/21 11:27 Dose: 125 mls/hr Documented by: Admin: 04/17/21 03:27 Dose: 125 mls/hr Documented by: Infusion: 04/17/21 00:26 Dose: 125 mls/hr Documented by: Admin: 04/16/21 16:26 Dose: 125 mls/hr Documented by: Infusion: 04/16/21 16:26 Dose: 125 mls/hr Documented by: Admin: 04/16/21 08:32 Dose: 125 mls/hr Documented by: Infusion: 04/16/21 04:28 Dose: 125 mls/hr Documented by: Admin: 04/15/21 20:28 Dose: 125 mls/hr Documented by: KALLI Ceftriaxone Sodium 2 gm/ (Sodium Chloride) 50 mls @ 100 mls/hr IV Q24H [facility] Ketorolac Tromethamine (Ketorolac 30 Mg/Ml Sdv) 15 mg IVPUSH Q8H PRN PRN Reason: Pain Stop: 04/24/21 20:32 Last Admin: 04/19/21 00:38 Dose: 15 mg Documented by: PEREZ Lactobacillus Rhamnosus (Lactobacillus Rhamnosus Gg (Probiotic) Cap) 1 cap PO BID [facility] Last Admin: 04/20/21 09:34 Dose: 1 cap Documented by: Admin: 04/19/21 20:04 Dose: 1 cap Documented by: Admin: 04/19/21 09:16 Dose: 1 cap Documented by: Admin: 04/18/21 21:44 Dose: 1 cap Documented by: Admin: 04/18/21 08:15 Dose: 1 cap Documented by: Admin: 04/17/21 20:35 Dose: 1 cap Documented by: PEREZ Morphine Sulfate (Morphine 2 Mg/Ml Syringe) 1 mg IVPUSH Q1H PRN PRN Reason: Breakthrough Pain Ondansetron HCl (Ondansetron 4 Mg/2 Ml Sdv) 4 mg IV Q4H PRN PRN Reason: Nausea/Vomiting Oxycodone HCl (Oxycodone 5 Mg Tab) 5 mg PO Q4H PRN PRN Reason: Pain (moderate 4-6) Last Admin: 04/20/21 12:50 Dose: 5 mg Documented by: Admin: 04/20/21 08:40 Dose: 5 mg Documented by: Admin: 04/20/21 03:39 Dose: 5 mg Documented by: Admin: 04/18/21 06:10 Dose: 5 mg Documented by: CARO Oxycodone HCl (Oxycodone 5 Mg Tab) 10 mg PO Q4H PRN PRN Reason: Pain (severe 7-10) Last Admin: 04/19/21 22:40 Dose: 10 mg Documented by: Admin: 04/19/21 17:53 Dose: 10 mg Documented by: Admin: 04/19/21 12:57 Dose: 10 mg Documented by: Admin: 04/19/21 08:28 Dose: 10 mg Documented by: Admin: 04/19/21 00:38 Dose: 10 mg Documented by: Admin: 04/18/21 20:28 Dose: 10 mg Documented by: Admin: 04/18/21 11:23 Dose: 10 mg Documented by: Admin: 04/18/21 01:43 Dose: 10 mg Documented by: Admin: 04/17/21 20:34 Dose: 10 mg Documented by: Admin: 04/17/21 16:01 Dose: 10 mg Documented by: Admin: 04/17/21 12:17 Dose: 10 mg Documented by: Admin: 04/17/21 07:57 Dose: 10 mg Documented by: Admin: 04/17/21 03:31 Dose: 10 mg Documented by: Admin: 04/16/21 22:55 Dose: 10 mg Documented by: Admin: 04/16/21 17:56 Dose: 10 mg Documented by: [id number] Pantoprazole Sodium (Pantoprazole 40 Mg Tab.Cr) 40 mg PO ACBREAKFAST [facility] Last Admin: 04/20/21 09:35 Dose: 40 mg Documented by: Admin: 04/19/21 09:16 Dose: 40 mg Documented by: [id number] Admin: 04/18/21 08:15 Dose: 40 mg Documented by: Admin: 04/17/21 08:00 Dose: 40 mg Documented by: Admin: 04/16/21 10:22 Dose: Not Given Documented by: [id number] Polyethylene Glycol (Polyethylene Glycol 3350 Powder 17 Gm Packet) 17 gm PO DAILY PRN PRN Reason: Constipation Propranolol HCl (Propranolol 40 Mg Tab) 20 mg PO BID PRN PRN Reason: Other Last Admin: 04/17/21 12:40 Dose: 20 mg Documented by: NASRA Rivaroxaban (Rivaroxaban 10 Mg Tab) 20 mg PO DAILY [facility] Admin: 04/20/21 09:34 Dose: 20 mg Documented by: Admin: 04/19/21 09:16 Dose: 20 mg Documented by: [id number] Sodium Chloride (Sodium Chloride 0.9% 10 Ml Syringe) 10 ml FLUSH ASDIRECTED PRN PRN Reason: Keep Vein Open - Assessment Assessment (Free Text/Narrative):: Patient is a pleasant 70-year-old male, status post single-stage right knee revision, postop day #2. No acute events overnight. Patient remains hemodynamically stable. Blood pressures have improved to within normal limits. Patient denied feeling febrile, nor having chills, dyspnea, chest pain. Patient reports pain is well controlled with the oral medications at this time. Increased pain in knee with ambulation and motion, but improved from the pain he was experiencing pre-op. Denied numbness or tingling of the right lower extremity. Tolerating regular diet well. No nausea or emesis. Has been participating in physical therapy daily. Ambulated 250 feet with four- wheel walker and standby assist this morning. Requires minimal assistance with sit to stand transfers. Patient able to transfer right leg into and out of bed without assistance. Completing ADLs with minimal assistance. Right lower extremity dressing was changed this morning and TASHA drain was pulled. Patient tolerated drain removal well. New dressing applied to right lower extremity. Luther catheter was discontinued on postop day #1. IV saline locked on postop day #1. Was unable to get a PICC line placed yesterday after multiple failed attempts. Attempt will be made this afternoon to place a MidLine. Patient continues to require inpatient status at this time for IV antibiotics until midline can be successfully placed. Exam: Right tibialis posterior, 2+. Sensation to right lower extremity intact. Right calf is soft and supple. Right knee with postoperative edema extending into right calf. Very mild warmth to touch of right knee. Incision is well approximated, Steri-Strips above with dried drainage. No surrounding erythema nor active drainage. Knee flexion to 70 degrees. Dorsiflexion: 4+/5. Plantar flexion: 5/5. New dressing applied to right lower extremity, dry and intact. Plan: * Patient to participate in physical therapy daily while in the hospital. * Continue with current pain regimen. * Continue with home dose of Xarelto for DVT/VTE prophylaxis. * Anticipate attempt for MidLine insertion for IV access this afternoon. * Right lower extremity dressing changed on postop day #2 by orthopedic provider. * Patient has been accepted at [facility] for daily IV antibiotics x 6 weeks. * Anticipate discharge home tomorrow after daily IV antibiotic dose completed and pending a successful midline insertion today. * Discussed follow up care with patient; he may find an ortho provider closer to home and we can fax records. However, patient expressed desire to follow up with Dr. Castro and make the drive back up; follow up apt in clinic arranged for 05/01/21.
--- NOTE | 2021-04-20 18:48 | PCM.PN ---
- General Info Date of Service: 04/20/21 Admission Dx/Problem (Free Text): Admission Diagnosis/Problem Admission Diagnosis/Problem Septic arthritis Subjective Update: There was difficulty getting a PICC line placed today, however I was able to place a midline in the brachial area this afternoon. He is to have calf pain but he states that it is improving. He does paddling with his feet to make it feel better. His leg was wrapped. He was able to walk several meters today without issues. Functional Status: Reports: Pain Controlled, Tolerating Diet, Ambulating, Urinating - Review of Systems General: Reports: No Symptoms. Denies: Fever, Weakness, Fatigue, Chills HEENT: Reports: No Symptoms. Denies: Headaches, Sinus Congestion Pulmonary: Reports: No Symptoms. Denies: Shortness of Breath, Cough Cardiovascular: Reports: No Symptoms. Denies: Chest Pain, Palpitations Gastrointestinal: Reports: No Symptoms. Denies: Abdominal Pain, Constipation, Decreased Appetite, Diarrhea, Nausea, Vomiting Genitourinary: Reports: No Symptoms. Denies: Dysuria, Frequency, Pain Musculoskeletal: Reports: Leg Pain Skin: Reports: No Symptoms. Denies: Rash Neurological: Reports: No Symptoms. Denies: Confusion Psychiatric: Reports: No Symptoms - Patient Data Vitals - Most Recent: Last Vital Signs Temp 97.8 F 04/20/21 11:00 Pulse 97 04/20/21 11:00 Resp 16 04/20/21 15:00 BP 128/74 04/20/21 11:00 Pulse Ox 96 04/20/21 11:00 Weight - Most Recent: 187 lb 2.759 oz I&O - Last 24 Hours: Intake & Output 04/20/21 04/20/21 04/20/21 06:59 14:59 22:59 Intake Total 750 160 Output Total 300 200 Balance 450 -40 Lab Results Last 24 Hours: Laboratory Results - last 24 hr 04/20/21 04/20/21 Range/Units 04:30 04:30 WBC 9.4 (4.5-11.0) K/uL RBC 3.33 L (4.30-5.90) M/uL Hgb 9.3 L (12.0-15.0) g/dL Hct 28.8 L (40.0-54.0) % MCV 87 (80-98) fL MCH 28 (27-31) pg MCHC 32 (32-36) % Plt Count 262 (150-400) K/uL Sodium 139 L (140-148) mmol/L Potassium 3.2 L (3.6-5.2) mmol/L Chloride 103 (100-108) mmol/L Carbon Dioxide 27 (21-32) mmol/L Anion Gap 12.2 (5.0-14.0) mmol/L BUN 11 (7-18) mg/dL Creatinine 0.6 L (0.8-1.3) mg/dL Est Cr Clr Drug Dosing 114.00 mL/min Estimated GFR (MDRD) > 60 (>60) Glucose 173 H (74-106) mg/dL Calcium 8.1 L (8.5-10.1) mg/dL Kirk Results Last 24 Hours: Microbiology 04/15/21 16:40 Aerobic Blood Culture - Final Blood - Arm, Right NO GROWTH AFTER 5 DAYS Anaerobic Blood Culture - Final NO GROWTH AFTER 5 DAYS 04/15/21 16:48 Aerobic Blood Culture - Final Blood - Arm, Right NO GROWTH AFTER 5 DAYS Anaerobic Blood Culture - Final NO GROWTH AFTER 5 DAYS 04/18/21 16:16 Gram Stain - Final Knee, Right Wound Culture - Preliminary Anaerobic Culture - Preliminary NO GROWTH AFTER 2 DAYS Med Orders - Current: Current Medications Acetaminophen (Acetaminophen 325 Mg Tab) 650 mg PO Q4H PRN PRN Reason: Pain (Mild 1-3)/fever Last Admin: 04/18/21 11:24 Dose: 650 mg Documented by: Hydrocodone Bitart/Acetaminophen (Acetaminophen/Hydrocodone 325-5 Mg Tab) 1 tab PO Q4H PRN PRN Reason: Pain (mild 1-3) Docusate Sodium (Docusate Sodium 100 Mg Cap) 100 mg PO Q12H [facility] Last Admin: 04/20/21 09:35 Dose: 100 mg Documented by: Sodium Chloride (Normal Saline) 1,000 mls @ 125 mls/hr IV ASDIRECTED [facility] Last Admin: 04/19/21 03:37 Dose: 125 mls/hr Documented by: Ceftriaxone Sodium 2 gm/ (Sodium Chloride) 50 mls @ 100 mls/hr IV Q24H [facility] Ketorolac Tromethamine (Ketorolac 30 Mg/Ml Sdv) 15 mg IVPUSH Q8H PRN PRN Reason: Pain Stop: 04/24/21 20:32 Last Admin: 04/19/21 00:38 Dose: 15 mg Documented by: Lactobacillus Rhamnosus (Lactobacillus Rhamnosus Gg (Probiotic) Cap) 1 cap PO BID [facility] Last Admin: 04/20/21 09:34 Dose: 1 cap Documented by: Morphine Sulfate (Morphine 2 Mg/Ml Syringe) 1 mg IVPUSH Q1H PRN PRN Reason: Breakthrough Pain Ondansetron HCl (Ondansetron 4 Mg/2 Ml Sdv) 4 mg IV Q4H PRN PRN Reason: Nausea/Vomiting Oxycodone HCl (Oxycodone 5 Mg Tab) 5 mg PO Q4H PRN PRN Reason: Pain (moderate 4-6) Last Admin: 04/20/21 17:46 Dose: 5 mg Documented by: Oxycodone HCl (Oxycodone 5 Mg Tab) 10 mg PO Q4H PRN PRN Reason: Pain (severe 7-10) Last Admin: 04/19/21 22:40 Dose: 10 mg Documented by: Pantoprazole Sodium (Pantoprazole 40 Mg Tab.Cr) 40 mg PO ACBREAKFAST [facility] Last Admin: 04/20/21 09:35 Dose: 40 mg Documented by: Polyethylene Glycol (Polyethylene Glycol 3350 Powder 17 Gm Packet) 17 gm PO DAILY PRN PRN Reason: Constipation Propranolol HCl (Propranolol 40 Mg Tab) 20 mg PO BID PRN PRN Reason: Other Last Admin: 04/17/21 12:40 Dose: 20 mg Documented by: Rivaroxaban (Rivaroxaban 10 Mg Tab) 20 mg PO DAILY [facility] Last Admin: 04/20/21 09:34 Dose: 20 mg Documented by: Sodium Chloride (Sodium Chloride 0.9% 10 Ml Syringe) 10 ml FLUSH ASDIRECTED PRN PRN Reason: Keep Vein Open Discontinued Medications Acetaminophen (Acetaminophen 325 Mg Tab) 325 mg PO NOW ONE Stop: 04/15/21 18:29 Last Admin: 04/15/21 18:37 Dose: 325 mg Documented by: Acetaminophen (Acetaminophen 325 Mg Tab) 325 mg PO NOW ONE Stop: 04/15/21 18:30 Last Admin: 04/15/21 18:49 Dose: 325 mg Documented by: Dexamethasone (Dexamethasone 4 Mg/Ml Sdv) Confirm Administered Dose 4 mg .ROUTE .STK-MED ONE Stop: 04/18/21 14:20 Fentanyl (Fentanyl 100 Mcg/2 Ml Sdv) 50 mcg IVPUSH ONETIME ONE Stop: 04/15/21 16:34 Last Admin: 04/15/21 16:51 Dose: 50 mcg Documented by: Fentanyl (Fentanyl 100 Mcg/2 Ml Sdv) 50 mcg IVPUSH ONETIME ONE Stop: 04/15/21 18:29 Last Admin: 04/15/21 18:44 Dose: 50 mcg Documented by: Fentanyl (Fentanyl 250 Mcg/5 Ml Sdv) Confirm Administered Dose 250 mcg .ROUTE .STK-MED ONE Stop: 04/18/21 14:20 Fentanyl (Fentanyl 250 Mcg/5 Ml Sdv) Confirm Administered Dose 250 mcg .ROUTE .STK-MED ONE Stop: 04/18/21 16:22 Fentanyl (Fentanyl 250 Mcg/5 Ml Sdv) Confirm Administered Dose 250 mcg .ROUTE .STK-MED ONE Stop: 04/18/21 17:59 Glycopyrrolate (Glycopyrrolate 0.2 Mg/Ml 5 Ml Mdv) Confirm Administered Dose 1 mg .ROUTE .STK-MED ONE Stop: 04/18/21 14:20 Sodium Chloride (Normal Saline) 1,750 mls @ 1,000 mls/hr IV .Bolus [facility] Last Admin: 04/15/21 16:51 Dose: 1,000 mls/hr Documented by: Ceftriaxone Sodium 2 gm/ (Sodium Chloride) 50 mls @ 100 mls/hr IV ONETIME ONE Stop: 04/15/21 17:09 Last Admin: 04/15/21 17:08 Dose: 100 mls/hr Documented by: Ceftriaxone Sodium 2 gm/ (Sodium Chloride) 50 mls @ 100 mls/hr IV Q24H [facility] Vancomycin HCl 1.25 gm/ Sodium (Chloride) 250 mls @ 166.667 mls/hr IV Q12H [facility] Stop: 04/17/21 10:00 Last Admin: 04/17/21 07:00 Dose: 166.667 mls/hr Documented by: Ceftriaxone Sodium 2 gm/ (Sodium Chloride) 50 mls @ 100 mls/hr IV Q24H [facility] Last Admin: 04/19/21 17:54 Dose: 100 mls/hr Documented by: Vancomycin HCl 1.25 gm/ Sodium (Chloride) 250 mls @ 165 mls/hr IV Q8H [facility] Last Admin: 04/19/21 05:51 Dose: 165 mls/hr Documented by: Lactated Ringer's (Ringers, Lactated) Confirm Administered Dose 1,000 mls @ as directed .ROUTE .STK-MED ONE Stop: 04/18/21 16:02 Vancomycin HCl 1.5 gm/ Sodium (Chloride) 250 mls @ 167 mls/hr IV Q8H [facility] Last Admin: 04/19/21 15:12 Dose: 167 mls/hr Documented by: Ceftriaxone Sodium 2 gm/ (Sodium Chloride) 50 mls @ 100 mls/hr IV ONETIME ONE Stop: 04/20/21 14:29 Last Admin: 04/20/21 14:55 Dose: 100 mls/hr Documented by: Ketorolac Tromethamine (Ketorolac 30 Mg/Ml Sdv) 30 mg IVPUSH Q8H PRN PRN Reason: Breakthrough Pain Lidocaine HCl (Lidocaine 1% 5 Ml Sdv) 5 ml INJECT ONETIME ONE Stop: 04/15/21 17:28 Last Admin: 04/15/21 17:36 Dose: 5 ml Documented by: Metoclopramide HCl (Metoclopramide 10 Mg/2 Ml Sdv) 5 mg IV ONETIME ONE Stop: 04/15/21 18:31 Last Admin: 04/15/21 18:38 Dose: 5 mg Documented by: Neostigmine Methylsulfate (Neostigmine Methylsulfate 1 Mg/Ml 5 Ml Syringe) Confirm Administered Dose 5 mg .ROUTE .STK-MED ONE Stop: 04/18/21 14:20 Ondansetron HCl (Ondansetron 4 Mg/2 Ml Sdv) Confirm Administered Dose 4 mg .ROUTE .STK-MED ONE Stop: 04/18/21 14:20 Oxycodone HCl (Oxycodone 5 Mg Tab) 5 mg PO Q4H PRN PRN Reason: Pain (moderate 4-6) Last Admin: 04/16/21 13:14 Dose: 5 mg Documented by: Pantoprazole Sodium (Pantoprazole 40 Mg Tab.Cr) 40 mg PO DAILY [facility] Potassium Chloride (Potassium Chloride 20 Meq Tab.Er) 20 meq PO ONETIME ONE Stop: 04/20/21 11:31 Last Admin: 04/20/21 12:45 Dose: 20 meq Documented by: Povidone Iodine (Povidone-Iodine 10% Soln 118.25 Ml Bottle) Confirm Administered Dose 1 ml .ROUTE .STK-MED ONE Stop: 04/18/21 07:22 Last Admin: 04/18/21 16:31 Dose: 1 ml Documented by: Propofol (Propofol 200 Mg/20 Ml Sdv) Confirm Administered Dose 200 mg .ROUTE .STK-MED ONE Stop: 04/18/21 14:20 Rocuronium [place] (Rocuronium 50 Mg/5 Ml Vial) Confirm Administered Dose 50 mg .ROUTE .STK-MED ONE Stop: 04/18/21 14:20 Sodium Chloride (Sodium Chloride 0.9% 10 Ml Syringe) 10 ml FLUSH ASDIRECTED PRN PRN Reason: Keep Vein Open Last Admin: 04/15/21 16:53 Dose: 10 ml Documented by: Succinylcholine Chloride (Succinylcholine 200 Mg/10 Ml Mdv) Confirm Administered Dose 200 mg .ROUTE .STK-MED ONE Stop: 04/18/21 14:20 Vancomycin HCl (Vancomycin 1 Gm Sdv) 1 gm IV .PHARMACY TO DOSE [facility] Stop: 04/16/21 07:30 Vancomycin HCl (Vancomycin 1 Gm Sdv) Confirm Administered Dose 2 gm .ROUTE .STK- MED ONE Stop: 04/18/21 07:21 Last Admin: 04/18/21 16:30 Dose: 2 gm Documented by: - Exam Quality Assessment: Central Line/PICC (Midline right brachial), Urine Catheter, DVT Prophylaxis (Xarelto). No: Supplemental Oxygen Urinary Catheter Total Time: 1Days 2Hours General: Alert, Oriented, Cooperative, No Acute Distress HEENT: Pupils Equal, EOMI, Mucous Membr. Moist/[place] Neck: Supple, Trachea Midline Lungs: Clear to Auscultation, Normal Respiratory Effort Cardiovascular: Regular Rate, Regular Rhythm GI/Abdominal Exam: Normal Bowel Sounds, Soft, Non-Tender, No Distention Extremities: Normal Inspection. No: Soo's Sign Skin: Warm, Dry, Intact Wound/Incisions: Dressing Dry and Intact Neurological: No New Focal Deficit Psy/Mental Status: Alert, Normal Affect, Normal Mood - Patient Data Lab Results Last 24 hrs: Laboratory Results - last 24 hr 04/20/21 04/20/21 Range/Units 04:30 04:30 WBC 9.4 (4.5-11.0) K/uL RBC 3.33 L (4.30-5.90) M/uL Hgb 9.3 L (12.0-15.0) g/dL Hct 28.8 L (40.0-54.0) % MCV 87 (80-98) fL MCH 28 (27-31) pg MCHC 32 (32-36) % Plt Count 262 (150-400) K/uL Sodium 139 L (140-148) mmol/L Potassium 3.2 L (3.6-5.2) mmol/L Chloride 103 (100-108) mmol/L Carbon Dioxide 27 (21-32) mmol/L Anion Gap 12.2 (5.0-14.0) mmol/L BUN 11 (7-18) mg/dL Creatinine 0.6 L (0.8-1.3) mg/dL Est Cr Clr Drug Dosing 114.00 mL/min Estimated GFR (MDRD) > 60 (>60) Glucose 173 H (74-106) mg/dL Calcium 8.1 L (8.5-10.1) mg/dL Result Diagrams: 04/20/21 04:30 04/20/21 04:30 Kirk Results Last 24 hrs: Microbiology 04/15/21 16:40 Aerobic Blood Culture - Final Blood - Arm, Right NO GROWTH AFTER 5 DAYS Anaerobic Blood Culture - Final NO GROWTH AFTER 5 DAYS 04/15/21 16:48 Aerobic Blood Culture - Final Blood - Arm, Right NO GROWTH AFTER 5 DAYS Anaerobic Blood Culture - Final NO GROWTH AFTER 5 DAYS 04/18/21 16:16 Gram Stain - Final Knee, Right Wound Culture - Preliminary Anaerobic Culture - Preliminary NO GROWTH AFTER 2 DAYS Sepsis Event Note - Evaluation Sepsis Screening Result: No Definite Risk - Focused Exam Vital Signs: Vital Signs Temp Pulse Resp BP Pulse Ox 04/20/21 15:00 16 04/20/21 11:00 97.8 F 97 18 128/74 96 04/20/21 07:00 98.3 F 84 18 130/86 95 - Problem List & Annotations (1) Septic arthritis SNOMED Code(s): 497586458 Code(s): M00.9 - PYOGENIC ARTHRITIS, UNSPECIFIED Status: Acute Current Visit: Yes (2) Anticoagulant long-term use SNOMED Code(s): 317681350 Code(s): Z79.01 - CARE HOME (CURRENT) USE OF ANTICOAGULANTS Status: Acute Current Visit: Yes - Problem List Review Problem List Initiated/Reviewed/Updated: Yes - Plan Plan:: ASSESSMENT AND PLAN SEPTIC ARTHRITIS RIGHT KNEE-postop day 1 total knee replacement -status post total knee arthroplasty done 2 years ago. -Blood cultures are negative -Joint cultures show a beta-hemolytic strep that is not group a or B -Awaiting culture from surgery to taper antibiotics accordingly -He does not endorse ever eating raw or undercooked fish at any time in the recent past -Consult Dr. Castro-had total knee replacement on 04/18, currently has a drain in place -IV vancomycin and ceftriaxone will continue until final culture results -Midline and right brachia placed today Recent massive pulmonary embolism secondary to DVT Long-term anticoagulation therapy -complicating back surgery done earlier this spring. -On long-term oral anticoagulation with Xarelto. -Was restarted on Xarelto today MAINTENANCE ISSUES -DVT prophylaxis: Xarelto -GI prophylaxis; not indicated -Luther catheter; not indicated -Nutrition; regular diet -Nicotine dependence; not required CODE STATUS-FULL CODE Disposition: We will monitor for cultures from surgery and taper antibiotics accordingly. We do have a plan for how he will receive antibiotics once he leaves [place], DO
--- NOTE | 2021-04-20 22:29 | PCM.PRNOTE ---
- Free Text/Narrative Note: Midline Insertion: Right brachial at 1400 Indication:outpatient IV antibiotics for 6 weeks Performed by: Dr. Ele Ngo Informed consent: obtained prior to procedure [place] Time-out completed Proper hand hygiene, sterile technique used, Sterile draping used Device used: 4 [place] Number of attempts: 2, patient had vessel sensitivity initially so a new site was used Pt was comfortable throughtout the procedure except when the first vessel was touched by the needle. Therefore, a new site was used without any issues. He did have some bleeding with the procedure as expected on Xarelto. No Chest Xray orddered post procedure Blood loss: 10 mL
[2021-04-21] MEDS: oxyCODONE 5 MG Tab PO PRN ×2 (03:11→10:09)
[2021-04-21] MEDS: Pantoprazole 40 MG Tab.CR PO SCH (07:36)
[2021-04-21] MEDS: Docusate Sodium 100 MG Cap PO SCH (07:36)
[2021-04-21] MEDS: Rivaroxaban 10 MG Tab PO SCH (09:16)
[2021-04-21] MEDS: Lactobacillus Rhamnosus GG (Probiotic) Cap PO SCH (09:16)
--- NOTE | 2021-04-21 09:26 | PCM.DCSUM1 ---
Discharge Summary - Hospital Course Brief History: Patient is a pleasant 70-year-old male, past medical history significant for right total knee arthroplasty performed in 2019. Patient reported persistent pain in knee since the operation in 2019, but had significant increased pain in the knee joint over the previous weekend. Additionally, patient developed fevers, malaise, significant swelling and warmth to touch of right knee. Patient was evaluated in the emergency department; concern for septic arthritis warranted admission for further work-up. Joint arthrocentesis performed and routine lab work collected; thereafter patient was started on broad-spectrum antibiotics. Orthopedic services consulted. X-rays of the knee obtained revealed hardware lucency, consistent with component loosening. Joint cultures revealed beta Streptococcus, not group A or B. Orthopedic service discussed treatment options with patient and . Patient and elected to have a single-stage revision surgery here in [place]. Surgery was performed on Friday, April 18. Surgery went well with no major complications. Patient remained hemodynamically stable in the postoperative period. Several attempts were made to place a PICC line unsuccessfully. Decision was made to proceed with a Midline placement in the right brachial space. With successful placement of Midline, arrangements were made for patient to return closer to home for daily antibiotic therapy for 6 weeks. Medically stable at time of discharge. Diagnosis: Stroke: No Modified [place] Scale: No Symptoms at All Modified [place] Scale Score: 0 - Discharge Data Discharge Date: 04/21/21 Discharge Disposition: Home, Self-Care 01 Condition: Good - Referral to Home Health Date of Face to Face Encounter: 04/21/21 Reason for Homebound Status: Motivated to go home, independent with ambulation and ADLs. Supportive spouse at home. Primary Care Physician: PCP None - Discharge Diagnosis/Problem(s) (1) Painful total knee replacement, right SNOMED Code(s): 796090687 ICD Code: T84.84XA - PAIN DUE TO INTERNAL ORTHOPEDIC PROSTH DEV/GRFT, INIT; Z96.651 - PRESENCE OF RIGHT ARTIFICIAL KNEE JOINT Status: Acute Current Visit: Yes Qualifiers: Encounter type: initial encounter Qualified Code(s): T84.84XA - Pain due to internal orthopedic prosthetic devices, implants and grafts, initial encounter; Z96.651 - Presence of right artificial knee joint (2) Status post revision of total replacement of right knee SNOMED Code(s): 164780300846202, 96428526, 106849175053621 ICD Code: Z96.651 - PRESENCE OF RIGHT ARTIFICIAL KNEE JOINT Status: Acute Current Visit: Yes (3) Septic arthritis SNOMED Code(s): 857718020 ICD Code: M00.9 - PYOGENIC ARTHRITIS, UNSPECIFIED Status: Acute Current Visit: Yes Qualifiers: Septic arthritis location: knee Septic arthritis organism: streptococcal Laterality: right Qualified Code(s): M00.261 - Other streptococcal arthritis, right knee - Patient Summary/Data Operative Procedure(s) Performed: Single stage right total knee revision Consults: Consultations 04/16/21 16:06 Consult to Orthopedics [CONS] Routine Consulting Provider: Antoni Castro Courtesy Call Completed to Consulting Physician: Yes Reason for Consult: possible septic arthritis of prostetic right knee, evaluation 04/18/21 18:38 Consult to Physical Therapy [PT Evaluation and Treatment] [CONS] Routine Please Evaluate and Treat. PT Reason for Consult: s/p R TKA revision This query below is only for informational purposes and is not editable. Admission Diagnosis/Problem: Septic arthritis Recommended Follow-up Testing/Procedures: 2 grams Rocephin QD x 6 weeks Hospital Course: Patient is a pleasant 70 y/o male, history of RTKA in 2019 at [facility] in [facility]. Had persistent pain in knee after the operation, even had a genicular nerve block, but never had any great relief. Was up in [place] for vacation and over the past weekend developed a significant increase in right knee pain from baseline, in addition to significant swelling and warmth of the right knee joint. Was unable to bear weight on RLE. Also felt febrile and malaise. Was evaluated in ED on 04/15/21 and admitted to the med/surg floor for infectious workup. Patient was febrile, hypertensive, and tachycardic. Blood cultures collected and joint arthrocentesis performed on 04/15/21. Patient was then started on broad spectrum antibiotics with Vancomycin and Ceftriaxone. Ortho services consulted on Friday04/16/21. Xrays were obtained and demonstrated lucency around the tibial component of implant and posterior aspect of femoral implant. Orders were placed for a bone scan to further evaluate right knee for suspicion of hardware loosening, but nuclear med services were unable to perform this study until . Treatment options were discussed with patient and his . Much of treatment at this point was dependent on the culture results, which were unavailable until the following day. Pending what type of bacteria was in the knee joint would dictate how aggressive we needed to be with surgical options. Patient was offered to return to [facility] for surgery, but they wished to stay here in [place]. Past medical history also significant for pulmonary embolus in January 2021. As surgery was anticipated for Friday or , decision was made to hold patients home Xarelto dosing. Hospitalist kindly continued medical management of patient. Friday04/19/21, culture results returned as Beta Streptococcus, not group A or B. Dr. Raymundo recommendations at that point were to remove current hardware, perform joint washout and single stage revision with antibiotic cement, followed by 6 weeks IV antibiotics. Risks and benefits of this surgery were discussed. Patient and spouse were agreeable to single stage revision. Surgery was performed on Friday04/20/21. Intraoperative cultures of right knee joint obtained. Patient tolerated surgery well with no complications. Home Xarelto dose was resumed after surgery. Decision was made to discontinue Vancomycin and continue Ceftriaxone. Patients postoperative period was rather uncomplicated. Patient remained hemodynamically stable throughout the postoperative period; diastolic pressures have been running in the 90's. Has had intermittent tachycardia since admission. Patient endorsed feeling febrile the morning of POD#1, but did not have a fever. Denied chills, dyspnea, chest pain, nor malaise. POD#1 Hgb declined to 10.4; patient was asymptomatic with this. Denied dizziness, lightheadedness, nor orthostatic hypotension. Patient was hypokalemic; potassium supplement was ordered. Patients Luther catheter was discontinued on POD#1. IV was saline locked on POD#1. Pain was well controlled with PO medications. Tolerated regular diet well with no nausea or emesis. Patient completed physical therapy twice daily after surgery; ambulation abilities progressed nicely, walking 250+ft with FWW and standby assist. Demonstrated independence with sit/stand transitions. Endorsed pain was present in right knee with some radiation to calf, but much more tolerable than the pain he had prior to surgery. Postoperative edema was present on R knee, + R pedal edema. Incision was well approximated with steristrips above. There was no surrounding erythema nor active drainage at incision. Mild warmth to touch of R knee. RLE neurovascular was intact; tibialis posterior 2+. Negative Soo sign on RLE. Right calf soft and supple. No discoloration, nor warmth to touch of calf. R knee dressing changed and TASHA drain pulled on POD#2. Dressing changed again on POD#4 prior to discharge. Several attempts were made during the postoperative period to place a PICC line, but all were unsuccessful. A Midline was successfully placed in brachial space of right arm. Arrangements made for patient to receive IV antibiotics daily at a location closer to patients home, [facility] in [facility]. Intraoperative joint cultures returned with many WBCs and Beta Streptococcus, not group A or B, consistent with joint arthrocentesis. No other organisms found. Will proceed with 2 gm Rocephin IV daily x 6 weeks. - Patient Instructions Diet: Usual Diet as Tolerated Activity: Apply Ice, Elevate Extremity, Full Weight Bearing Driving: Do Not Drive Showering/Bathing: Shower in AM Wound/Incision Care: Keep Operative Site/Wound Site Clean and Dry, Change Dressing Daily (as desired ) Notify Provider of: Fever, Increased Pain, Swelling and Redness, Drainage - Discharge Plan *PRESCRIPTION DRUG MONITORING PROGRAM REVIEWED*: Yes *COPY OF PRESCRIPTION DRUG MONITORING REPORT IN PATIENT HILARIO: Not Applicable Home Medications: Home Meds Omeprazole 20 mg PO DAILY 04/15/21 [History] Propranolol HCl 20 mg PO BID PRN 04/15/21 [History] Rivaroxaban [Xarelto] 20 mg PO DAILY 04/15/21 [History] traMADol [Ultram] 50 mg PO BID PRN 04/15/21 [History] Oxygen Therapy Mode: Room Air Patient Handouts: Midline Catheter, Sepsis, Self Care, Adult Referrals: PCP,None [Primary Care Provider] - - Discharge Summary/Plan Comment DC Time >30 min.: No Discharge Summary/Plan Comment: * Arrangements have been made for patient to receive daily IV antibiotics at [facility] in [facility], starting tomorrow. He received todays dose prior to discharge. * ABX order: Rocephin 2gm IV daily for 6 weeks. Dressing change weekly. * Patient encouraged to continue probiotic while on antibiotic. * Paper prescription provided to patient for pain medication: 5mg Oxycodone, 1-2 tabs PO q6 hrs prn pain, dispense #35. Okay to alternate with NSAIDs or Tylenol for breakthrough pain. * Patient encouraged to continue stool softener while on opioid medication. * Reviewed DVT and VTE warnings signs; should patient develop shortness of breath, chest pain, palpitations, significant increase in calf pain, redness or discoloration to calf, or change in temperature of calf, should seek care at local ER. * Continue with home Xarelto dose for DVT/VTE prophylaxis. * Reviewed SSI warnings signs; should patient develop fever, chills, redness around incision, purulent drainage, or increased warmth to touch of knee, should seek care at local ER. * Patient to continue with Nozin spray BID for the following week. * Outpatient PT order faxed to [facility] per patients request. They are closed this , but patient may reach out Friday to set up session. * Diastolic pressures have been elevated since admission; should monitor BP at home and follow up with PCP if they remain elevated. * Follow up arranged for 05/01/21 with orthopedic clinic; provided office number. Should call with any concerns or questions that arise. - General Info Date of Service: 04/21/21 Admission Dx/Problem (Free Text: Admission Diagnosis/Problem Admission Diagnosis/Problem Septic arthritis Functional Status: Reports: Pain Controlled, Tolerating Diet, Ambulating, Urinating - Review of Systems General: Reports: No Symptoms HEENT: Reports: No Symptoms Pulmonary: Reports: No Symptoms Cardiovascular: Reports: No Symptoms Gastrointestinal: Reports: Flatus Genitourinary: Reports: No Symptoms Musculoskeletal: Reports: Back Pain (chronic ), Leg Pain (right ), Joint Pain (right knee ), Joint Swelling (right knee ) Skin: Reports: Rash (right kirby, resolving ) Neurological: Reports: No Symptoms Psychiatric: Reports: No Symptoms - Patient Data Vitals - Most Recent: Last Vital Signs Temp 96.8 F L 04/21/21 07:08 Pulse 122 H 04/21/21 07:08 Resp 18 04/21/21 07:08 BP 144/99 H 04/21/21 07:08 Pulse Ox 95 04/21/21 07:08 Weight - Most Recent: 187 lb 2.759 oz I&O - Last 24 hours: Intake & Output 04/20/21 04/21/21 04/21/21 22:59 06:59 14:59 Output Total 300 500 400 Balance -300 -500 -400 Lab Results - Last 24 hrs: Laboratory Results - last 24 hr 04/21/21 04/21/21 Range/Units 05:25 05:25 WBC 8.4 (4.5-11.0) K/uL RBC 3.47 L (4.30-5.90) M/uL Hgb 9.8 L (12.0-15.0) g/dL Hct 30.3 L (40.0-54.0) % MCV 87 (80-98) fL MCH 28 (27-31) pg MCHC 32 (32-36) % Plt Count 350 (150-400) K/uL Sodium 140 (140-148) mmol/L Potassium 3.4 L (3.6-5.2) mmol/L Chloride 101 (100-108) mmol/L Carbon Dioxide 30 (21-32) mmol/L Anion Gap 12.4 (5.0-14.0) mmol/L BUN 7 (7-18) mg/dL Creatinine 0.8 (0.8-1.3) mg/dL Est Cr Clr Drug Dosing 85.50 mL/min Estimated GFR (MDRD) > 60 (>60) Glucose 160 H (74-106) mg/dL Calcium 8.4 L (8.5-10.1) mg/dL RONY Results - Last 24 hrs: Microbiology 04/18/21 16:16 Gram Stain - Final Knee, Right Wound Culture - Final Beta Strep Not Group A Or B Anaerobic Culture - Final NO GROWTH AFTER 3 DAYS 04/15/21 16:40 Aerobic Blood Culture - Final Blood - Arm, Right NO GROWTH AFTER 5 DAYS Anaerobic Blood Culture - Final NO GROWTH AFTER 5 DAYS 04/15/21 16:48 Aerobic Blood Culture - Final Blood - Arm, Right NO GROWTH AFTER 5 DAYS Anaerobic Blood Culture - Final NO GROWTH AFTER 5 DAYS Med Orders - Current: Current Medications Acetaminophen (Acetaminophen 325 Mg Tab) 650 mg PO Q4H PRN PRN Reason: Pain (Mild 1-3)/fever Last Admin: 04/18/21 11:24 Dose: 650 mg Documented by: Hydrocodone Bitart/Acetaminophen (Acetaminophen/Hydrocodone 325-5 Mg Tab) 1 tab PO Q4H PRN PRN Reason: Pain (mild 1-3) Docusate Sodium (Docusate Sodium 100 Mg Cap) 100 mg PO Q12H ELISSA Last Admin: 04/21/21 07:36 Dose: 100 mg Documented by: Sodium Chloride (Normal Saline) 1,000 mls @ 125 mls/hr IV ASDIRECTED [facility] Last Admin: 04/19/21 03:37 Dose: 125 mls/hr Documented by: Ceftriaxone Sodium 2 gm/ (Sodium Chloride) 50 mls @ 100 mls/hr IV Q24H [facility] Ketorolac Tromethamine (Ketorolac 30 Mg/Ml Sdv) 15 mg IVPUSH Q8H PRN PRN Reason: Pain Stop: 04/24/21 20:32 Last Admin: 04/19/21 00:38 Dose: 15 mg Documented by: Lactobacillus Rhamnosus (Lactobacillus Rhamnosus Gg (Probiotic) Cap) 1 cap PO BID [facility] Last Admin: 04/20/21 20:08 Dose: 1 cap Documented by: Morphine Sulfate (Morphine 2 Mg/Ml Syringe) 1 mg IVPUSH Q1H PRN PRN Reason: Breakthrough Pain Ondansetron HCl (Ondansetron 4 Mg/2 Ml Sdv) 4 mg IV Q4H PRN PRN Reason: Nausea/Vomiting Oxycodone HCl (Oxycodone 5 Mg Tab) 5 mg PO Q4H PRN PRN Reason: Pain (moderate 4-6) Last Admin: 04/21/21 03:11 Dose: 5 mg Documented by: Oxycodone HCl (Oxycodone 5 Mg Tab) 10 mg PO Q4H PRN PRN Reason: Pain (severe 7-10) Last Admin: 04/19/21 22:40 Dose: 10 mg Documented by: Pantoprazole Sodium (Pantoprazole 40 Mg Tab.Cr) 40 mg PO ACBREAKFAST [facility] Last Admin: 04/21/21 07:36 Dose: 40 mg Documented by: Polyethylene Glycol (Polyethylene Glycol 3350 Powder 17 Gm Packet) 17 gm PO DAILY PRN PRN Reason: Constipation Propranolol HCl (Propranolol 40 Mg Tab) 20 mg PO BID PRN PRN Reason: Other Last Admin: 04/17/21 12:40 Dose: 20 mg Documented by: Rivaroxaban (Rivaroxaban 10 Mg Tab) 20 mg PO DAILY [facility] Last Admin: 04/20/21 09:34 Dose: 20 mg Documented by: Sodium Chloride (Sodium Chloride 0.9% 10 Ml Syringe) 10 ml FLUSH ASDIRECTED PRN PRN Reason: Keep Vein Open Discontinued Medications Acetaminophen (Acetaminophen 325 Mg Tab) 325 mg PO NOW ONE Stop: 04/15/21 18:29 Last Admin: 04/15/21 18:37 Dose: 325 mg Documented by: Acetaminophen (Acetaminophen 325 Mg Tab) 325 mg PO NOW ONE Stop: 04/15/21 18:30 Last Admin: 04/15/21 18:49 Dose: 325 mg Documented by: Dexamethasone (Dexamethasone 4 Mg/Ml Sdv) Confirm Administered Dose 4 mg .ROUTE .STK-MED ONE Stop: 04/18/21 14:20 Fentanyl (Fentanyl 100 Mcg/2 Ml Sdv) 50 mcg IVPUSH ONETIME ONE Stop: 04/15/21 16:34 Last Admin: 04/15/21 16:51 Dose: 50 mcg Documented by: Fentanyl (Fentanyl 100 Mcg/2 Ml Sdv) 50 mcg IVPUSH ONETIME ONE Stop: 04/15/21 18:29 Last Admin: 04/15/21 18:44 Dose: 50 mcg Documented by: Fentanyl (Fentanyl 250 Mcg/5 Ml Sdv) Confirm Administered Dose 250 mcg .ROUTE .STK-MED ONE Stop: 04/18/21 14:20 Fentanyl (Fentanyl 250 Mcg/5 Ml Sdv) Confirm Administered Dose 250 mcg .ROUTE .STK-MED ONE Stop: 04/18/21 16:22 Fentanyl (Fentanyl 250 Mcg/5 Ml Sdv) Confirm Administered Dose 250 mcg .ROUTE .STK-MED ONE Stop: 04/18/21 17:59 Glycopyrrolate (Glycopyrrolate 0.2 Mg/Ml 5 Ml Mdv) Confirm Administered Dose 1 mg .ROUTE .STK-MED ONE Stop: 04/18/21 14:20 Sodium Chloride (Normal Saline) 1,750 mls @ 1,000 mls/hr IV .Bolus ELISSA Last Admin: 04/15/21 16:51 Dose: 1,000 mls/hr Documented by: Ceftriaxone Sodium 2 gm/ (Sodium Chloride) 50 mls @ 100 mls/hr IV ONETIME ONE Stop: 04/15/21 17:09 Last Admin: 04/15/21 17:08 Dose: 100 mls/hr Documented by: Ceftriaxone Sodium 2 gm/ (Sodium Chloride) 50 mls @ 100 mls/hr IV Q24H ELISSA Vancomycin HCl 1.25 gm/ Sodium (Chloride) 250 mls @ 166.667 mls/hr IV Q12H ELISSA Stop: 04/17/21 10:00 Last Admin: 04/17/21 07:00 Dose: 166.667 mls/hr Documented by: Ceftriaxone Sodium 2 gm/ (Sodium Chloride) 50 mls @ 100 mls/hr IV Q24H [facility] Last Admin: 04/19/21 17:54 Dose: 100 mls/hr Documented by: Vancomycin HCl 1.25 gm/ Sodium (Chloride) 250 mls @ 165 mls/hr IV Q8H [facility] Last Admin: 04/19/21 05:51 Dose: 165 mls/hr Documented by: Lactated Ringer's (Ringers, Lactated) Confirm Administered Dose 1,000 mls @ as directed .ROUTE .STK-MED ONE Stop: 04/18/21 16:02 Vancomycin HCl 1.5 gm/ Sodium (Chloride) 250 mls @ 167 mls/hr IV Q8H [facility] Last Admin: 04/19/21 15:12 Dose: 167 mls/hr Documented by: Ceftriaxone Sodium 2 gm/ (Sodium Chloride) 50 mls @ 100 mls/hr IV ONETIME ONE Stop: 04/20/21 14:29 Last Admin: 04/20/21 14:55 Dose: 100 mls/hr Documented by: Ketorolac Tromethamine (Ketorolac 30 Mg/Ml Sdv) 30 mg IVPUSH Q8H PRN PRN Reason: Breakthrough Pain Lidocaine HCl (Lidocaine 1% 5 Ml Sdv) 5 ml INJECT ONETIME ONE Stop: 04/15/21 17:28 Last Admin: 04/15/21 17:36 Dose: 5 ml Documented by: Metoclopramide HCl (Metoclopramide 10 Mg/2 Ml Sdv) 5 mg IV ONETIME ONE Stop: 04/15/21 18:31 Last Admin: 04/15/21 18:38 Dose: 5 mg Documented by: Neostigmine Methylsulfate (Neostigmine Methylsulfate 1 Mg/Ml 5 Ml Syringe) Confirm Administered Dose 5 mg .ROUTE .STK-MED ONE Stop: 04/18/21 14:20 Ondansetron HCl (Ondansetron 4 Mg/2 Ml Sdv) Confirm Administered Dose 4 mg .ROUTE .STK-MED ONE Stop: 04/18/21 14:20 Oxycodone HCl (Oxycodone 5 Mg Tab) 5 mg PO Q4H PRN PRN Reason: Pain (moderate 4-6) Last Admin: 04/16/21 13:14 Dose: 5 mg Documented by: Pantoprazole Sodium (Pantoprazole 40 Mg Tab.Cr) 40 mg PO DAILY ELISSA Potassium Chloride (Potassium Chloride 20 Meq Tab.Er) 20 meq PO ONETIME ONE Stop: 04/20/21 11:31 Last Admin: 04/20/21 12:45 Dose: 20 meq Documented by: Povidone Iodine (Povidone-Iodine 10% Soln 118.25 Ml Bottle) Confirm Administered Dose 1 ml .ROUTE .STK-MED ONE Stop: 04/18/21 07:22 Last Admin: 04/18/21 16:31 Dose: 1 ml Documented by: Propofol (Propofol 200 Mg/20 Ml Sdv) Confirm Administered Dose 200 mg .ROUTE .STK-MED ONE Stop: 04/18/21 14:20 Rocuronium [place] (Rocuronium 50 Mg/5 Ml Vial) Confirm Administered Dose 50 mg .ROUTE .STK-MED ONE Stop: 04/18/21 14:20 Sodium Chloride (Sodium Chloride 0.9% 10 Ml Syringe) 10 ml FLUSH ASDIRECTED PRN PRN Reason: Keep Vein Open Last Admin: 04/15/21 16:53 Dose: 10 ml Documented by: Succinylcholine Chloride (Succinylcholine 200 Mg/10 Ml Mdv) Confirm Administered Dose 200 mg .ROUTE .STK-MED ONE Stop: 04/18/21 14:20 Vancomycin HCl (Vancomycin 1 Gm Sdv) 1 gm IV .PHARMACY TO DOSE ELISSA Stop: 04/16/21 07:30 Vancomycin HCl (Vancomycin 1 Gm Sdv) Confirm Administered Dose 2 gm .ROUTE .STK- MED ONE Stop: 04/18/21 07:21 Last Admin: 04/18/21 16:30 Dose: 2 gm Documented by: - Exam Quality Assessment: Reports: Central Line/PICC (Midline; new dressing placed prior to discharge ) General: Reports: Alert, Oriented, Cooperative, No Acute Distress Extremities: Normal Range of Motion, Pedal Edema, Joint Swelling (right knee ), Leg Pain (right ), Limited Range of Motion (right knee due to recent surgery and swelling, flexion ~70). No: Soo's Sign Skin: Reports: Dry, Intact, Rash (right kirby, purple, decreased in size since admission ), Ecchymosis Wound/Incisions: Reports: Healing Well, Dressing Dry and Intact, No Drainage, Other (right knee incision intact, steristrips above with dried drainage. No surrounding erythema, active drainage, nor warmth to touch.) Neurological: Reports: No New Focal Deficit Psy/Mental Status: Reports: Alert, Normal Affect, Normal Mood *Q Meaningful Use (DIS) - VTE *Q VTE Pharmacological Contraindications *Q: High INR Value
[2021-04-21] MEDS ORDERED: cefTRIAXone 2 GM in Sodium Chloride 0.9% 50 ML IV SCH (10:00)
--- NOTE | 2021-04-30 22:21 | OR ---
DATE OF PROCEDURE: 04/18/2021 SURGEON: Antoni Castro MD PREOPERATIVE DIAGNOSIS: Infected right total knee arthroplasty. 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 PROCEDURE: Right total knee revision using Cynthia LCCK components with a size E femur 13 mm x 100 stem, size 5 tibia with 12 mm x 100, offset stem 23 mm LCCK poly, and 32 mm patella. ADOBE MAKER: CL Mccarthy ANESTHESIA: Spinal with sedation. INDICATIONS: Stone is a very pleasant 70-year-old gentleman who unfortunately began having significant pain in his right knee with fevers and chills while visiting the area. Was admitted to the hospital and aspiration of the knee which reveals non-A, non-B strep. There is evidence of some loosening of the components. He has taken to the operating room now for single stage revision. Risks, benefits, potential complications of single staged versus 2-stage revision was discussed. Services of the physician political science research assistant were used as 1st assist for retraction, exposure and limb manipulation during surgery. DESCRIPTION OF PROCEDURE: After adequate anesthesia was obtained, the patient placed supine with a tourniquet about the right upper thigh. Right leg was prepped and draped in a sterile fashion. Leg was exsanguinated by gravity and tourniquet inflated to 300 mmHg pressure. The previous incision was utilized, carried down to the subcutaneous tissues, and medial parapatellar arthrotomy was performed. Upon making the arthrotomy, a large amount of grossly purulent synovial fluid was present. Additional cultures were taken. Synovial fluid was cleared and irrigated. A complete synovectomy was then performed in all areas except the inaccessible posterior portion of the knee which was done after removal of the components. Patella is everted and held with a clamp and oscillating saw was used to resect the polyethylene. Drill is used to remove the pegs and a curette used to clear out the peg holes. This was then irrigated. Using a combination of curved and smoothed osteotomes as well as a Gigli saw, the femur is loosened. This was tapped gently back and forth on medial and lateral condyle to further loosen it and then removed without significant difficulty. There was evidence of some mild loosening of the femur. The femur is thoroughly irrigated with pulse lavage. Attention was then turned to the tibia. Again using a combination of straight and curved osteotomes as well as flexible osteotomes, tibia is loosened. This was tapped gently medially and laterally. Some evidence of loosening initially at the implant bone interface and the implant was removed without difficulty leaving the cement mantle intact. The cement was then fragmented with osteotome and removed. Using a combination of rongeur and curettes, remaining cement was removed and the bone is thoroughly debrided including the intramedullary canal. The knee was then thoroughly irrigated with the pulse lavage. This is followed by irrigation with a dilute Betadine solution which was left in place for approximately 3 minutes. Attention was then turned to replacing implants. The femoral canal is reamed up to a 13 mm and the reamer was left in place. Remaining cuts are centered off this reamer for a size E component. The intercondylar notch is cut for the LCCK component. Trial component is assembled and position with excellent fit. Attention was then turned to the tibia, which is sequentially reamed. A 12 mm reamer was left in place. Intramedullary cutting guide was placed over this and the tibia cut was then freshened attempting to remove as little bone as possible and obtain a level cut. Tibia was sized to a #5. Five base plate was pinned in position. Large proximal reamer is placed and the tibia was punched for fins. The trial was assembled, tapped into position. Trial femur was replaced and polyethylene inserts were then trialed up to a size 23, which provided full extension and excellent balance in flexion and extension. The patella was resurfaced with a 32 mm button and tracked well without lateral release. The trials were removed and the knee was irrigated once again. At this point, the tourniquet was released. Joint was packed with lap sponges. Components were opened on the back table and assembled. Once the assembly was complete, the knee was irrigated once again. Any large bleeding vessels were cauterized. The tourniquet was reinflated and a bloodless field was re- established. Knee was irrigated and bone surfaces were dried. The components were then cemented in place using gentamicin cement with an additional gram of vancomycin powder per batch of cement. Excess cement was removed. The knee was held in full extension with the trial insert as the cement cured. The 23 mm poly again provided best balance in flexion and extension and full extension. The trial was removed. The knee was irrigated once again. Final poly was positioned and secured using the screw into the stem which was tightened with a torque wrench. Knee was then irrigated with a dilute Betadine solution once again, which was left in place for 2.5 minutes and then irrigated with pulse lavage. A drain was placed and brought out through a separate stab incision superior laterally. Capsule was closed with #2 Ethibond in interrupted fashion. Skin was closed with 2-0 Vicryl and a running 3-0 Monocryl and Steri-Strips were applied. Compressive dressing was then placed. The patient tolerated procedure very well. There were no complications. Taken from the operating room in stable condition. Antoni Castro MD /[id number]
== END 2021-04-21 11:05 | disposition home or self-care (01) | DRG 463 ==
LOC: JP.ED 15:38 → JP.MS 18:36
PROVIDERS: ADMIT Hospitalist; ATTEND Internal Medicine
PROC: 0SPC0JZ Removal of Synthetic Substitute from Right Knee Joint, Open Approach (ICD-10-PCS; principal; 2021-04-18)
DX: T84.032A Mechanical loosening of internal right knee prosthetic joint, initial encounter (principal); A41.9 Sepsis, unspecified organism; R21 Rash and other nonspecific skin eruption; I26.99 Other pulmonary embolism without acute cor pulmonale; I82.409 Acute embolism and thrombosis of unspecified deep veins of unspecified lower extremity; M00.261 Other streptococcal arthritis, right knee; E87.1 Hypo-osmolality and hyponatremia; T84.53XA Infection and inflammatory reaction due to internal right knee prosthesis, initial encounter; B95.5 Unspecified streptococcus as the cause of diseases classified elsewhere; M25.461 Effusion, right knee; R51.9 Headache, unspecified; Z86.711 Personal history of pulmonary embolism; Z79.899 Other long term (current) drug therapy; Z86.718 Personal history of other venous thrombosis and embolism; Z79.01 Long term (current) use of anticoagulants
CPT/HCPCS: 20610; 36415; 70450; 80053; 83605; 83690; 84145; 84484; 85025; 85379; 86140; 87040 ×2; 87077; 93005; 96365; 96375; 99285; J0696; J3010; J7030; 36569; 73560-26-RT; 73560-RT; 73564-26-RT; 73564-RT; 80048; 80202; 81001; 83735; 84100; 85027; 86850; 86900; 86901; 87070; 87075; 87205; 89050; 89060; 93010; 97110-GP; 97162-GP; 97530-GP; A9270-GY; C1713; C1751; C1776; J0330; J1100; J1885; J2405; J2704; J2710; J2765; J3370; J3490; J7050; J7120